=== PATIENT | female | born 1950 | race Caucasian/White ===

== ENCOUNTER → 2017-12-16 15:55 | Outpatient (CLI) | payer MEDICARE, MEDICAID, SELFPAY ==
[2017-12-16 16:06] LABS: Microscopic, Urine URINE MICROSCOPIC (MICROSCOPIC)
[2017-12-16 16:33] LABS: Basophils # 0.1 K/mm3 (0-0.2); Basophils % 0.7 % (0.1-2.0); Eosinophils # 0.4 K/mm3 (0.0-0.4); Eosinophils % 4.9 % (0.1-12.0); Hematocrit 44.8 % (37.0-47.0); Hemoglobin 14.2 g/dL (12.2-16.2); Lymphocytes # 1.7 K/mm3 (0.7-4.5); Lymphocytes % 23.2 K/mm3 (10-50); Mean Corpuscular HGB Conc 31.7 g/dL (31.8-35.4); Mean Corpuscular Hemoglobin 28.1 pg (27.0-31.2); Mean Corpuscular Volume 88.6 fl (81-99); Mean Platelet Volume 7.4 fl (7.4-10.4); Monocytes # 0.4 K/mm3 (0.1-1.0); Monocytes % 5.3 % (1.7-9.3); Neutrophils # 4.8 K/mm3 (1.8-7.8); Neutrophils % 65.9 % (37.0-80.0); Platelet Count 336 K/mm3 (142-424); Red Blood Count 5.06 M/mm3 (4.20-5.40); White Blood Count 7.3 K/mm3 (4.8-10.8)
[2017-12-16 16:36] LABS: Appearance,Urine CLEAR (Clear); Bilirubin,Urine Negative (Negative); Blood, Urine 1+ (Negative); Color,Urine YELLOW (Yellow); Glucose,Urine (UA) 3+ (Negative); Ketones,Urine Negative (Negative); Leukocyte Esterase,Urine Negative (Negative); Nitrate,Urine Negative (Negative); Protein,Urine 2+ (Negative); Specific Gravity, Urine 1.015 (1.005-1.030); Urobilinogen,Urine 0.2 EU/dl (0.2)
[2017-12-16 17:05] LABS: Bacteria,Urine Trace /lpf; RBC,Urine Occasional #/hpf (0-3)
[2017-12-16 18:40] LABS: Creatinine,Urine Random 26 mg/dL (20-320); Total Protein,Urine Random 199.5 mg/dL (0.0-11.9)
[2017-12-16 18:49] LABS: Albumin Level 3.2 gm/dL (3.4-5.0); Anion Gap 17.1 mEq/L (5-15); Blood Urea Nitrogen 25 mg/dL (7-18); Calcium 8.4 mg/dL (8.5-10.1); Carbon Dioxide 22 mmol/L (21.0-32.0); Chloride 102 mmol/L (98-107); Estimated Glomerular Filt Rate 25 ml/min (>60); GFR (African American) 30 ML/MIN (>60); Glucose 388 mg/dL (74-106); Phosphorous 2.4 mg/dL (2.4-4.9); Potassium 4.1 mmoL/L (3.5-5.1); Sodium 137 mmol/L (136-145)
[2017-12-18 18:29] LABS: Parathyroid Hormone Intact 193 pg/mL (15-65); Vitamin D 25 Hydroxy 10.8 ng/mL (30.0-100.0)
[2017-12-18 18:30] LABS: Calcium, Ionized 4.9 mg/dL (4.5-5.6)
== END ==
PROVIDERS: PCP Nurse Practitioner Family; Visit Provider Internal Medicine Nephrology
DX: N18.3 Chronic kidney disease, stage 3 (moderate) (principal)
CPT/HCPCS: 36415; 80069; 81001; 82330; 82570; 82652; 83970; 84155; 85025

== ENCOUNTER → 2017-12-20 14:32 | Outpatient (POV) | payer MEDICARE, MEDICAID, SELFPAY | PROVIDERS: PCP Nurse Practitioner Family; Visit Provider Internal Medicine Nephrology | DX: Z00.00 Encounter for general adult medical examination without abnormal findings (principal) ==

== ENCOUNTER 2017-12-20 16:15 | Emergency (ER) | payer MEDICARE, MEDICAID, SELFPAY ==
[2017-12-20 16:16] VITALS: BP 200/110; PULSE 84; RESP 14; TEMP 36.7; O2SAT 97; BMI 43.7
--- NOTE | 2017-12-20 17:54 | HMH.EDGENADL ---
ED Disposition Clinical Impression: Hypertensive emergency Disposition: Home, Self-Care Condition on Discharge: Good Instructions: High Blood Pressure Referrals: Miley Henriquez APRN [Primary Care Provider] - - Critical Care Critical Care Time: No Attestation: On 12/20/17, the high probability of a clinically significant, sudden or life threatening deterioration of the following system(s) required my full and direct attention, intervention and personal management. The time I documented below is in addition to time spent performing reported procedures but includes the following listed in this critical care notation. Medical Decision Making - Medical Records Medical records reviewed: Yes: I reviewed the patient's medical records. Vital Signs: 12/20/17 16:16 12/20/17 18:46 Temperature 98.1 F 98.6 F Temperature Source Oral Oral Pulse Rate [Right Brachial] 84 102 H Respiratory Rate 14 14 Blood Pressure [Left Arm] 200/110 210/89 Blood Pressure Mean [Left Arm] 140 129 Blood Pressure Source [Left Arm] Manual Cuff/ Auscultation Automatic Cuff Blood Pressure Position [Left Arm] Sitting Sitting 02 Sat by Pulse Oximetry 97 98 Oxygen Delivery Method Room Air Room Air Orders (Tests/Meds): ED MEDICATIONS Discontinued Medications Generic Name Dose Route Start Last Admin Trade Name Freq PRN Reason Stop Dose Admin Clonidine HCl 0.1 mg 12/20/17 17:57 12/20/17 18:06 Clonidine 0.1mg Tablet PO 12/20/17 17:58 0.1 mg ONCE ONE Administration - Akash Inquiry Pt receiving controlled substance: No General Adult HPI - General Chief complaint: Headache Stated complaint: high blood pressure 264/124 sugar 305 Time Seen by Provider: 12/20/17 17:54 Mode of Arrival: Ambulatory Source of Information: Patient, Relative, Medical Record Limitations: No Limitations Description of Symptoms (Recalled from ER Triage Doc. by RN): Pt advises she was seeing her lime sludge mixer today and her b/p was elevated in the office. Pt presents to ED c/o headache, dizzy and feeling like its high - History of Present Illness HPI narrative: wf sent from renal clinic with elevated bp and has elevated glu Onset (ago): hour(s) Severity: moderate Associated symptoms: headaches. negative: confusion, fever/chills, nausea/vomiting, seizure, syncope - Related Data Allergies Allergy/AdvReac Type Severity Reaction Status Date / Time No Known Allergies Allergy Verified 12/20/17 16:38 [facility] History I have reviewed the patient's past medical history: Yes Medical History: Reports:: Diabetes Mellitus Type 2 Denies:: Cancer, Diabetes Mellitus Type 1, MRSA Amputation: No Fractures: No - *Social History Alcohol Intake: never - Psychiatric History Expresses thoughts of harming self/others: None Suicide Plan Description: No Plan ROS Obtained: Yes All systems reviewed & no additional complaints - Constitutional Constitutional: Denies fever(s) - Eyes Eyes: Denies change in vision - ENT Ears, Nose, Mouth, and Throat: Denies sore throat - Cardiovascular Cardiovascular: Denies chest pain at rest - Respiratory Respiratory: No chest congestion - Gastrointestinal Gastrointestingal: Denies: abdominal pain - Musculoskeletal Musculoskeletal: Denies joint pain, Denies joint swelling - Integumentary/Breasts Skin/Breast: Denies rash - Neurologic Neurologic: Reports as per HPI, Reports dizziness, Reports headache(s), Denies seizure-like activity Physical Exam - General General appearance: alert, in no apparent distress - Head Head exam: normocephalic - Eye Eye exam: Present: PERRL, EOMI - ENT ENT exam: Present: mucous membranes dry - Neck Neck exam: Present: trachea midline - Respiratory Respiratory exam: Absent: respiratory distress - Cardiovascular Cardiovascular exam: Present: regular rate, systolic murmur - Abdominal Exam Abdominal exam: Present: soft - Extremities Exam Extremitie
--- NOTE | 2017-12-20 17:57 | ED_ITS ---
ED Disposition Clinical Impression: Hypertensive emergency Disposition: Home, Self-Care Condition on Discharge: Good Instructions: High Blood Pressure Referrals: Miley Henriquez APRN [Primary Care Provider] - - Critical Care Critical Care Time: No Attestation: On 12/20/17, the high probability of a clinically significant, sudden or life threatening deterioration of the following system(s) required my full and direct attention, intervention and personal management. The time I documented below is in addition to time spent performing reported procedures but includes the following listed in this critical care notation. Medical Decision Making - Medical Records Medical records reviewed: Yes: I reviewed the patient's medical records. Vital Signs: 12/20/17 16:16 12/20/17 18:46 Temperature 98.1 F 98.6 F Temperature Source Oral Oral Pulse Rate [Right Brachial] 84 102 H Respiratory Rate 14 14 Blood Pressure [Left Arm] 200/110 210/89 Blood Pressure Mean [Left Arm] 140 129 Blood Pressure Source [Left Arm] Manual Cuff/ Auscultation Automatic Cuff Blood Pressure Position [Left Arm] Sitting Sitting 02 Sat by Pulse Oximetry 97 98 Oxygen Delivery Method Room Air Room Air Orders (Tests/Meds): ED MEDICATIONS Discontinued Medications Generic Name Dose Route Start Last Admin Trade Name Freq PRN Reason Stop Dose Admin Clonidine HCl 0.1 mg 12/20/17 17:57 12/20/17 18:06 Clonidine 0.1mg Tablet PO 12/20/17 17:58 0.1 mg ONCE ONE Administration - Akash Inquiry Pt receiving controlled substance: No General Adult HPI - General Chief complaint: Headache Stated complaint: high blood pressure 264/124 sugar 305 Time Seen by Provider: 12/20/17 17:54 Mode of Arrival: Ambulatory Source of Information: Patient, Relative, Medical Record Limitations: No Limitations Description of Symptoms (Recalled from ER Triage Doc. by RN): Pt advises she was seeing her investment broker today and her b/p was elevated in the office. Pt presents to ED c/o headache, dizzy and feeling like its high - History of Present Illness HPI narrative: wf sent from renal clinic with elevated bp and has elevated glu Onset (ago): hour(s) Severity: moderate Associated symptoms: headaches. negative: confusion, fever/chills, nausea/ vomiting, seizure, syncope - Related Data Allergies Allergy/AdvReac Type Severity Reaction Status Date / Time No Known Allergies Allergy Verified 12/20/17 16:38 [facility] History I have reviewed the patient's past medical history: Yes Medical History: Reports:: Diabetes Mellitus Type 2 Denies:: Cancer, Diabetes Mellitus Type 1, MRSA Amputation: No Fractures: No - *Social History Alcohol Intake: never - Psychiatric History Expresses thoughts of harming self/others: None Suicide Plan Description: No Plan ROS Obtained: Yes All systems reviewed & no additional complaints - Constitutional Constitutional: Denies fever(s) - Eyes Eyes: Denies change in vision - ENT Ears, Nose, Mouth, and Throat: Denies sore throat - Cardiovascular Cardiovascular: Denies chest pain at rest - Respiratory Respiratory: No chest congestion - Gastrointestinal Gastrointestingal: Denies: abdominal pain - Musculoskeletal Musculoskeletal: Denies joint
[2017-12-20 18:46] VITALS: BP 210/89; PULSE 102; RESP 14; TEMP 37; O2SAT 98
[2017-12-20 19:39] VITALS: BP 167/78; PULSE 73; RESP 14; TEMP 36.9; O2SAT 97
== END 2017-12-20 19:42 | disposition home or self-care (01) ==
PROVIDERS: Emergency Provider Emergency Medicine; PCP Nurse Practitioner Family
DX: I16.1 Hypertensive emergency (principal); R42 Dizziness and giddiness; R51 Headache
CPT/HCPCS: 99283

== ENCOUNTER → 2017-12-28 09:30 | Outpatient (CLI) | payer MEDICARE, MEDICAID, SELFPAY ==
--- NOTE | 2017-12-28 09:36 | CI_ITS ---
Cerebrovascular Exam IMPRESSIONS 1. The bilateral vertebral arteries are patent with normal antegrade flow. 2. Study suggests less than 20% stenosis involving the right internal carotid artery. 3. Study suggests 20-49%(lower end of scale)stenosis involving the left internal carotid artery. History: Ataxia. Risk factors: Hypertension. Diabetes mellitus. Carotid duplex study. Complete study and Doppler flow study including spectral analysis, color and wilcox scale imaging. Height: Height: 147.3cm. Height: 58in. Weight: Weight: 94.8kg. Weight: 208.6lb. Body mass index: BMI: 43.7kg/m^2. Body surface area: BSA: 2.03m^2. Location: Vascular laboratory. Patient status: Outpatient. Tables: Arterial flow: + +--------+--------+ Location V sys V ed + +--------+--------+ Right CCA - proximal 71.5cm/s 8.6cm/s + +--------+--------+ Right CCA - distal 65.2cm/s 14.1cm/s + +--------+--------+ Right ECA 104cm/s -------- + +--------+--------+ Right ICA - proximal 65.2cm/s 16.5cm/s + +--------+--------+ Right ICA - mid 88cm/s 25.1cm/s + +--------+--------+ Right ICA - distal 88cm/s 22cm/s + +--------+--------+ Right vertebral 73.1cm/s -------- + +--------+--------+ Left CCA - proximal 74.6cm/s 15.7cm/s + +--------+--------+ Left CCA - distal 78.6cm/s 15.7cm/s + +--------+--------+ Left ECA 99cm/s -------- + +--------+--------+ Left ICA - proximal 101cm/s 16.5cm/s + +--------+--------+ Left ICA - mid 102cm/s 17.3cm/s + +--------+--------+ Left ICA - distal 91.1cm/s 22.8cm/s + +--------+--------+ Left vertebral 30.8cm/s -------- + +--------+--------+ Velocity ratios: + + + + + + Right, V sys Right, V ed Left, V sys Left, V ed + + + + + + Max ICA/dist CCA 1.35 1.78 1.3 1.45 + + + + + + (Report amended ) Electronically signed by: Will Jones [id number]
== END ==
PROVIDERS: PCP Internal Medicine Adolescent Medicine; Visit Provider Nurse Practitioner Family
DX: R27.0 Ataxia, unspecified (principal); I10 Essential (primary) hypertension; E11.319 Type 2 diabetes mellitus with unspecified diabetic retinopathy without macular edema
CPT/HCPCS: 93880

== ENCOUNTER → 2018-03-21 14:00 | Outpatient (CLI) | payer MEDICARE, MEDICAID, SELFPAY ==
[2018-03-21 15:10] LABS: Creatinine,Urine Random 75 mg/dL (20-320)
[2018-03-21 15:19] LABS: Total Protein,Urine Random 305.4 mg/dL (0.0-11.9)
[2018-03-21 17:04] LABS: Albumin Level 3.5 gm/dL (3.4-5.0); Anion Gap 14.4 mEq/L (5-15); Blood Urea Nitrogen 22 mg/dL (7-18); Calcium 9.5 mg/dL (8.5-10.1); Carbon Dioxide 29 mmol/L (21.0-32.0); Chloride 105 mmol/L (98-107); Creatinine,Serum 1.89 mg/dL (0.55-1.02); Estimated Glomerular Filt Rate 27 ml/min (>60); GFR (African American) 32 ML/MIN (>60); Glucose 193 mg/dL (74-106); Potassium 4.4 mmoL/L (3.5-5.1); Sodium 144 mmol/L (136-145)
[2018-03-21 17:09] LABS: Free T4 (Free Thyroxine) 1.27 ng/dl (0.76-1.46)
[2018-03-23 06:18] LABS: Vitamin D 25 Hydroxy 55.1 ng/mL (30.0-100.0)
== END ==
PROVIDERS: Otolaryngology; Visit Provider Internal Medicine Nephrology
DX: R13.10 Dysphagia, unspecified (principal)
CPT/HCPCS: 36415; 80069; 82570; 82652; 84155; 84439; 84443

== ENCOUNTER → 2018-03-28 13:19 | Outpatient (POV) | payer MEDICARE, MEDICAID, SELFPAY | PROVIDERS: PCP Internal Medicine Adolescent Medicine; Visit Provider Internal Medicine Nephrology | DX: Z00.00 Encounter for general adult medical examination without abnormal findings (principal) ==

== ENCOUNTER → 2018-03-29 09:43 | Outpatient (CLI) | payer MEDICARE, MEDICAID, SELFPAY ==
--- NOTE | 2018-03-29 09:45 | FL_ITS ---
EXAM: Barium swallow/esophagram. INDICATION: ITS.REASON: diff swallowing ORDERING PHYSICIAN: Ervin Hernandez MD PATIENT AGE: 67 years COMPARISON: 03/17/2017 TECHNIQUE: In the upright position the patient was observed to swallow barium in both the AP and lateral view. The cervical esophagus was examined under fluoroscopy with images obtained. The patient was then placed prone in the right anterior oblique position and was observed to swallow barium with Valsalva technique . FLUOROSCOPY TIME: 59 seconds FINDINGS: The esophagus is midline. No mass or mucosal anomalies are evident. No evidence of hiatal hernia. No obstructing lesions apparent. IMPRESSION: Negative barium swallow
--- NOTE | 2018-03-29 09:45 | US_ITS ---
US thyroid HISTORY: Follow-up thyroid cancer/surgery ITS.REASON: hx thyroid surgery' ORDERING PHYSICIAN: Ervin Hernandez MD PATIENT AGE: 67 years COMPARISON: 02/24/2017 FINDINGS: There has been a prior left thyroidectomy. The right lobe is 4.3 x 1.9 x 2.1 cm. There is an 8 x 6 mm slightly hypoechoic nodule in the mid polar region. No other nodules are evident. Previously there was a 9 x 5 mm lobular nodule which is not apparent on today's exam. Nodules were present in the isthmus as well which are no longer apparent. IMPRESSION: Prior left thyroidectomy. Prior removal of the isthmus. The right lobe contains a small nodule which is low level of suspicion for malignancy
== END ==
PROVIDERS: PCP Internal Medicine Adolescent Medicine; Visit Provider Otolaryngology
DX: R13.10 Dysphagia, unspecified (principal); E03.9 Hypothyroidism, unspecified
CPT/HCPCS: 74220; 76536

== ENCOUNTER → 2018-04-11 10:09 | Outpatient (CLI) | payer MEDICARE, MEDICAID, SELFPAY ==
[2018-04-11 11:06] LABS: Hemoglobin A1C 9.1 % (0.0-7.0)
[2018-04-11 11:44] LABS: Alanine Aminotransferase 20 U/L (12-78); Albumin Level 3.5 gm/dL (3.4-5.0); Albumin/Globulin Ratio 1.1 (1.1-1.8); Alkaline Phosphatase 96 U/L (46-116); Anion Gap 13.8 mEq/L (5-15); Aspartate Amino Transferase 14 U/L (15-37); Bilirubin,Total 0.4 mg/dL (0.2-1.0); Blood Urea Nitrogen 31 mg/dL (7-18); Calcium 9.4 mg/dL (8.5-10.1); Carbon Dioxide 26 mmol/L (21.0-32.0); Chloride 103 mmol/L (98-107); Chol/HDL Ratio 3.5 (1-3.5); Cholesterol 219 mg/dL (140-200); Creatinine,Serum 2.19 mg/dL (0.55-1.02); Estimated Glomerular Filt Rate 23 ml/min (>60); GFR (African American) 27 ML/MIN (>60); Globulin 3.1 gm/dl (1.3-3.2); Glucose 336 mg/dL (74-106); HDL Cholesterol 62 mg/dL (29-89); LDL Cholesterol 119 mg/dL (0-130); Potassium 4.8 mmoL/L (3.5-5.1); Sodium 138 mmol/L (136-145); Total Protein,Serum 6.6 gm/dL (6.4-8.2); Triglycerides 189 mg/dL (30-200); VLDL Cholesterol 38 mg/dL (0-40)
== END ==
PROVIDERS: Visit Provider Nurse Practitioner Family
DX: E11.319 Type 2 diabetes mellitus with unspecified diabetic retinopathy without macular edema (principal)
CPT/HCPCS: 36415; 80053; 80061; 83036

== ENCOUNTER → 2018-05-05 09:43 | Outpatient (CLI) | payer MEDICARE, MEDICAID, SELFPAY ==
--- NOTE | 2018-05-05 09:48 | MM_ITS ---
MM Dig screening mamm BI w/CAD CAD Screening ORDERING PHYSICIAN : Darnell Narayan MD PATIENT AGE: 67 years GENDER: Female HISTORY. Previous excisional biopsy of the left breast and o'clock periareolar region.. . Family history. Mother with breast cancer age 45. Premenopausal. Also sister with breast cancer age 57. Paternal grandmother COMPARISON April 2015, May 2016, December 2011..: TECHNIQUE: Standard CC and MLO images were obtained. R2 CAD reviewed. FINDINGS: A low-density breast bilaterally with no dominant mass nor suspicious calcifications. RIGHT BREAST: LEFT BREAST:A stable small area of calcifications at the central left breast. No dominant mass nor nor new densities of significant concern in either breast. No suspicious calcifications. The generous size fatty filled axillary lymph nodes again observed and more completely imaged on today's study. Warrants clinical follow up but appear to be generous size fat filled benign lymph nodes by mammography IMPRESSION: The breast appears stable with No significant interval change. Bilateral follow-up mammogram one year recommended Note comments in text BI-RADS Category: 2 Benign Finding(s) RECOMMENDED FOLLOW-UP: 1YR - 1 YEAR FOLLOW-UP (A letter has been sent to the patient regarding results of the study.)
--- NOTE | 2018-05-05 09:49 | XR_ITS ---
XR DEXA axial skeleton HISTORY: ITS.REASON: OSTEOPENIA ORDERING PHYSICIAN: Darnell Narayan MD PATIENT AGE: 67 years COMPARISON: 05/09/2015 FINDINGS: The BMD measured at the left femoral neck is 0.853 g/cm squared with a T score of -1.3. This is considered Osteopenic according to the World Health Organization criteria. Fracture risk is Moderate. Treatment is advised. L1 L4 density has a T score of 1.9 IMPRESSION: Osteopenia with moderate fracture risk. Recommend follow up exam in April 2020
== END ==
PROVIDERS: PCP Internal Medicine Adolescent Medicine; Visit Provider Internal Medicine Adolescent Medicine
DX: Z12.31 Encounter for screening mammogram for malignant neoplasm of breast (principal); M85.89 Other specified disorders of bone density and structure, multiple sites
CPT/HCPCS: 77067; 77080

== ENCOUNTER → 2018-07-04 10:22 | Outpatient (CLI) | payer MEDICARE, MEDICAID, SELFPAY ==
[2018-07-04 10:45] LABS: Basophils # 0.1 K/mm3 (0-0.2); Basophils % 0.9 % (0.1-2.0); Eosinophils # 0.3 K/mm3 (0.0-0.4); Eosinophils % 5.5 % (0.1-12.0); Hematocrit 43.5 % (37.0-47.0); Hemoglobin 13.6 g/dL (12.2-16.2); Lymphocytes # 1.3 K/mm3 (0.7-4.5); Lymphocytes % 22.9 K/mm3 (10-50); Mean Corpuscular HGB Conc 31.3 g/dL (31.8-35.4); Mean Corpuscular Hemoglobin 27.4 pg (27.0-31.2); Mean Corpuscular Volume 87.7 fl (81-99); Mean Platelet Volume 6.7 fl (7.4-10.4); Monocytes # 0.4 K/mm3 (0.1-1.0); Monocytes % 7.1 % (1.7-9.3); Neutrophils # 3.6 K/mm3 (1.8-7.8); Neutrophils % 63.7 % (37.0-80.0); Platelet Count 317 K/mm3 (142-424); Red Blood Count 4.96 M/mm3 (4.20-5.40); Red Cell Distribution Width 13.9 % (11.5-17.5); White Blood Count 5.6 K/mm3 (4.8-10.8)
[2018-07-04 11:52] LABS: Albumin Level 3.5 gm/dL (3.4-5.0); Anion Gap 12.8 mEq/L (5-15); Blood Urea Nitrogen 23 mg/dL (7-18); Calcium 9.2 mg/dL (8.5-10.1); Carbon Dioxide 31 mmol/L (21.0-32.0); Chloride 103 mmol/L (98-107); Creatinine,Serum 2.12 mg/dL (0.55-1.02); Estimated Glomerular Filt Rate 23 ml/min (>60); GFR (African American) 28 ML/MIN (>60); Glucose 326 mg/dL (74-106); Phosphorous 3.2 mg/dL (2.4-4.9); Potassium 4.8 mmoL/L (3.5-5.1); Sodium 142 mmol/L (136-145)
[2018-07-05 13:12] LABS: Calcium, Ionized 5.1 mg/dL (4.5-5.6)
[2018-07-05 16:06] LABS: Parathyroid Hormone Intact 94 pg/mL (15-65)
== END ==
PROVIDERS: Visit Provider Internal Medicine Nephrology
DX: N18.4 Chronic kidney disease, stage 4 (severe) (principal)
CPT/HCPCS: 36415; 80069; 82330; 83970; 85025

== ENCOUNTER → 2018-07-11 15:24 | Outpatient (POV) | payer MEDICARE, MEDICAID, SELFPAY | PROVIDERS: PCP Internal Medicine Adolescent Medicine; Visit Provider Internal Medicine Nephrology | DX: Z00.00 Encounter for general adult medical examination without abnormal findings (principal) ==

== ENCOUNTER → 2018-08-02 15:29 | Outpatient (CLI) | payer MEDICARE, MEDICAID, SELFPAY ==
--- NOTE | 2018-08-02 15:34 | XR_ITS ---
XR chest 2V HISTORY: ITS.REASON: SOB ORDERING PHYSICIAN: Talat Machado MD PATIENT AGE: 68 years COMPARISON: None FINDINGS: Mild cardiomegaly without failure. Lungs are clear bilaterally. There are mild degenerative changes in the midthoracic spine.. The lungs are clear without infiltrates, suspicious nodules, or pleural effusions. No acute bony abnormalities. IMPRESSION: Cardiomegaly otherwise negative
== END ==
PROVIDERS: PCP Nurse Practitioner Family; Visit Provider Internal Medicine Pulmonary Disease
DX: R06.02 Shortness of breath (principal)
CPT/HCPCS: 71046

== ENCOUNTER → 2018-09-22 09:16 | Outpatient (CLI) | payer MEDICARE, MEDICAID, SELFPAY ==
[2018-09-22 09:29] LABS: Basophils # 0.1 K/mm3 (0-0.2); Basophils % 0.9 % (0.1-2.0); Eosinophils # 0.3 K/mm3 (0.0-0.4); Eosinophils % 6.2 % (0.1-12.0); Hematocrit 38.6 % (37.0-47.0); Hemoglobin 12.1 g/dL (12.2-16.2); Lymphocytes # 1.4 K/mm3 (0.7-4.5); Lymphocytes % 24.9 K/mm3 (10-50); Mean Corpuscular HGB Conc 31.4 g/dL (31.8-35.4); Mean Corpuscular Hemoglobin 27.9 pg (27.0-31.2); Mean Corpuscular Volume 88.8 fl (81-99); Mean Platelet Volume 7.8 fl (7.4-10.4); Monocytes # 0.4 K/mm3 (0.1-1.0); Monocytes % 7.3 % (1.7-9.3); Neutrophils # 3.3 K/mm3 (1.8-7.8); Neutrophils % 60.6 % (37.0-80.0); Platelet Count 302 K/mm3 (142-424); Red Blood Count 4.35 M/mm3 (4.20-5.40); Red Cell Distribution Width 14.2 % (11.5-17.5); White Blood Count 5.4 K/mm3 (4.8-10.8)
[2018-09-22 13:12] LABS: Albumin Level 3.5 gm/dL (3.4-5.0); Anion Gap 16.4 mEq/L (5-15); Blood Urea Nitrogen 38 mg/dL (7-18); Calcium 9.4 mg/dL (8.5-10.1); Carbon Dioxide 26 mmol/L (21.0-32.0); Chloride 97 mmol/L (98-107); Creatinine,Serum 2.43 mg/dL (0.55-1.02); Estimated Glomerular Filt Rate 20 ml/min (>60); GFR (African American) 24 ML/MIN (>60); Phosphorous 4.1 mg/dL (2.4-4.9); Potassium 4.4 mmoL/L (3.5-5.1); Sodium 135 mmol/L (136-145)
[2018-09-22 13:39] LABS: Glucose 483 mg/dL (74-106)
== END ==
PROVIDERS: Visit Provider Internal Medicine Nephrology
DX: N18.4 Chronic kidney disease, stage 4 (severe) (principal)
CPT/HCPCS: 36415; 80069; 85025

== ENCOUNTER → 2018-09-26 14:08 | Outpatient (POV) | payer MEDICARE, MEDICAID, SELFPAY | PROVIDERS: Visit Provider Internal Medicine Nephrology | DX: Z00.00 Encounter for general adult medical examination without abnormal findings (principal) ==

== ENCOUNTER → 2018-10-06 09:09 | Outpatient (CLI) | payer MEDICARE, MEDICAID, SELFPAY ==
[2018-10-06 10:46] LABS: Alanine Aminotransferase 28 U/L (12-78); Albumin Level 3.4 gm/dL (3.4-5.0); Alkaline Phosphatase 138 U/L (46-116); Anion Gap 15.7 mEq/L (5-15); Aspartate Amino Transferase 10 U/L (15-37); Bilirubin,Total 0.3 mg/dL (0.2-1.0); Blood Urea Nitrogen 56 mg/dL (7-18); Calcium 10.1 mg/dL (8.5-10.1); Carbon Dioxide 29 mmol/L (21.0-32.0); Chloride 94 mmol/L (98-107); Chol/HDL Ratio 3.2 (1-3.5); Cholesterol 184 mg/dL (140-200); Creatinine,Serum 2.67 mg/dL (0.55-1.02); Estimated Glomerular Filt Rate 18 ml/min (>60); GFR (African American) 22 ML/MIN (>60); Globulin 3.3 gm/dl (1.3-3.2); HDL Cholesterol 57 mg/dL (29-89); LDL Cholesterol 71 mg/dL (0-130); Potassium 4.7 mmoL/L (3.5-5.1); Sodium 134 mmol/L (136-145); Thyroid Stimulating Hormone 1.04 uIU/ml (0.358-3.740); Total Protein,Serum 6.7 gm/dL (6.4-8.2); Triglycerides 278 mg/dL (30-200); VLDL Cholesterol 56 mg/dL (0-40)
[2018-10-06 10:50] LABS: Glucose 463 mg/dL (74-106)
[2018-10-06 19:29] LABS: Hemoglobin A1C 11.7 % (0.0-7.0)
== END ==
PROVIDERS: Visit Provider Nurse Practitioner Family
DX: E11.319 Type 2 diabetes mellitus with unspecified diabetic retinopathy without macular edema (principal); E78.5 Hyperlipidemia, unspecified; E03.9 Hypothyroidism, unspecified; I10 Essential (primary) hypertension
CPT/HCPCS: 36415; 80053; 80061; 83036; 84443

== ENCOUNTER → 2018-12-19 12:54 | Outpatient (CLI) | payer MEDICARE, MEDICAID, SELFPAY ==
[2018-12-19 15:01] LABS: Albumin Level 3.4 gm/dL (3.4-5.0); Anion Gap 14.1 mEq/L (5-15); Blood Urea Nitrogen 46 mg/dL (7-18); Calcium 9.6 mg/dL (8.5-10.1); Carbon Dioxide 28 mmol/L (21.0-32.0); Chloride 96 mmol/L (98-107); Creatinine,Serum 2.52 mg/dL (0.55-1.02); Estimated Glomerular Filt Rate 19 ml/min (>60); GFR (African American) 23 ML/MIN (>60); Phosphorous 3.7 mg/dL (2.4-4.9); Potassium 4.1 mmoL/L (3.5-5.1); Sodium 134 mmol/L (136-145)
[2018-12-19 15:10] LABS: Glucose 484 mg/dL (74-106)
== END ==
PROVIDERS: Visit Provider Internal Medicine Nephrology
DX: N18.4 Chronic kidney disease, stage 4 (severe) (principal)
CPT/HCPCS: 36415; 80069

== ENCOUNTER → 2018-12-26 14:38 | Outpatient (POV) | payer MEDICARE, MEDICAID, SELFPAY | PROVIDERS: Visit Provider Internal Medicine Nephrology | DX: Z00.00 Encounter for general adult medical examination without abnormal findings (principal) ==

== ENCOUNTER → 2019-01-25 10:46 | Outpatient (CLI) | payer MEDICARE, MEDICAID, SELFPAY ==
--- NOTE | 2019-01-25 10:54 | US_ITS ---
US Arterial Ankle Brachial Ind History: ITS.REASON: skin changes, hypertension, diabetes, claudication, rest pain ORDERING PHYSICIAN: Tanna Montgomery DPM PATIENT AGE: 68 years TECHNIQUE: Segmental pressures obtained of both right and left leg. These are compared to brachial blood pressure to yield index at each level sampled including summary EDWARD. The data sheets from the procedure are available in PACS FINDINGS Rest study only performed today No prior studies available for comparison. Blood pressures reported are in millimeters mercury. RIGHT LEG EDWARD = 0.4. RIGHT LEG TBI=0.2 Brachial BP: 203 Thigh BP: 114 Calf BP: >254 Ankle PT: 88 Ankle DP : 91 Digit =32 LEFT LEG EDWARD = 0.6 LEFT LEG TBI= 0.3 Brachial BPD: 196 Thigh BP: 124 Calf BP: 131 Ankle PT:124 Ankle DP: 105 Digit = 67 Pulses and waveforms: There are diminished pulses bilaterally. IMPRESSION: 1. Right EDWARD of 0.4 consistent with severe arterial disease. 2. Left EDWARD of 0.6 consistent with moderate arterial disease 3. There is decreased pressure in the thighs bilaterally suggesting stenosis of either the distal aorta, iliac arteries, common femoral arteries or superficial femoral arteries. CT angiogram may confirm
== END ==
PROVIDERS: PCP Nurse Practitioner Family; Visit Provider Podiatrist
DX: R09.89 Other specified symptoms and signs involving the circulatory and respiratory systems (principal)
CPT/HCPCS: 93922

== ENCOUNTER → 2019-01-30 11:25 | Outpatient (CLI) | payer MEDICARE, MEDICAID, SELFPAY ==
[2019-01-30 12:01] LABS: Basophils # 0.1 K/mm3 (0-0.2); Eosinophils # 0.4 K/mm3 (0.0-0.4); Eosinophils % 4.9 % (0.1-12.0); Hematocrit 41.8 % (37.0-47.0); Hemoglobin 13.3 g/dL (12.2-16.2); Lymphocytes # 1.7 K/mm3 (0.7-4.5); Lymphocytes % 22.3 % (10-50); Mean Corpuscular HGB Conc 31.8 g/dL (31.8-35.4); Mean Corpuscular Hemoglobin 28.7 pg (27.0-31.2); Mean Corpuscular Volume 90.3 fl (81-99); Monocytes # 0.5 K/mm3 (0.1-1.0); Monocytes % 5.8 % (1.7-9.3); Neutrophils # 5.1 K/mm3 (1.8-7.8); Platelet Count 325 K/mm3 (142-424); Red Blood Count 4.63 M/mm3 (4.20-5.40); Red Cell Distribution Width 13.7 % (11.5-17.5); White Blood Count 7.8 K/mm3 (4.8-10.8)
[2019-01-30 12:47] LABS: Alanine Aminotransferase 28 U/L (12-78); Albumin Level 3.6 gm/dL (3.4-5.0); Alkaline Phosphatase 102 U/L (46-116); Anion Gap 16.7 mEq/L (5-15); Aspartate Amino Transferase 18 U/L (15-37); Bilirubin,Total 0.3 mg/dL (0.2-1.0); Blood Urea Nitrogen 31 mg/dL (7-18); Calcium 10.2 mg/dL (8.5-10.1); Carbon Dioxide 28 mmol/L (21.0-32.0); Chloride 101 mmol/L (98-107); Chol/HDL Ratio 3.1 (1-3.5); Cholesterol 183 mg/dL (140-200); Creatinine,Serum 1.95 mg/dL (0.55-1.02); Estimated Glomerular Filt Rate 26 ml/min (>60); GFR (African American) 31 ML/MIN (>60); Globulin 3.5 gm/dl (1.3-3.2); Glucose 225 mg/dL (74-106); HDL Cholesterol 60 mg/dL (29-89); LDL Cholesterol 82 mg/dL (0-130); Potassium 3.7 mmoL/L (3.5-5.1); Sodium 142 mmol/L (136-145); Total Protein,Serum 7.1 gm/dL (6.4-8.2); Triglycerides 207 mg/dL (30-200); VLDL Cholesterol 41 mg/dL (0-40)
[2019-01-30 15:38] LABS: Hemoglobin A1C 11.4 % (0.0-7.0)
[2019-01-31 11:21] LABS: Creatinine, Urine 108.6 mg/dL (Not Estab.)
[2019-01-31 16:12] LABS: Microalbumin, Urine 1047.7 ug/mL (Not Estab.)
[2019-02-01 07:32] LABS: Vitamin D 25 Hydroxy 24.6 ng/mL (30.0-100.0)
== END ==
PROVIDERS: Visit Provider Nurse Practitioner Family
DX: E11.8 Type 2 diabetes mellitus with unspecified complications (principal); E55.9 Vitamin D deficiency, unspecified; I10 Essential (primary) hypertension; E03.9 Hypothyroidism, unspecified; N18.4 Chronic kidney disease, stage 4 (severe)
CPT/HCPCS: 36415; 80053; 80061; 82043; 82570; 82652; 83036; 84443; 85025

== ENCOUNTER → 2019-02-02 14:06 | Outpatient (CLI) | payer MEDICARE, MEDICAID, SELFPAY | PROVIDERS: PCP Internal Medicine Adolescent Medicine; Visit Provider Podiatrist | DX: Z71.3 Dietary counseling and surveillance (principal); E11.9 Type 2 diabetes mellitus without complications | CPT/HCPCS: 97802 ==

== ENCOUNTER → 2019-02-15 06:33 | Outpatient (CLI) | payer MEDICARE, MEDICAID, SELFPAY ==
--- NOTE | 2019-02-15 06:34 | CA_ITS ---
PROCEDURE: 2-D M-mode and color Doppler study INDICATIONS FOR THE TEST: Chest pain + COPD Heart Murmur Tobacco Smoking Palpitations+ Fatigue+ Syncope Edema+ Hypertension+Diabetes Mellitus+ Rheumatic Fever SOB PIPER+Obesity Hyperlipidemia+ Family History HD+ Additional History CP, [place] PATIENT INFORMATION HEIGHT: 59 WEIGHT:207 GENDER: Female B/P:186/87 2-D/M-MODE INTERPRETATION: 2-D MEASUREMENTS OBSERVED VALUES IN CMS Right Ventricular Dimension (RVDd) 2.1 Interventricular Septum (Thickness)(IVsd) 1.5 Left Ventricular Internal Dimensions(LVIDd) 4.5 Left Ventricular Posterior Wall (Thickness)(LVPWd) 1.0 Aortic Root 3.0 Aortic Cusp Separation 1.8 Left Atrial Dimensions (LAD) 3.8 2D 1. Left atrium is mildly enlarged, left ventricle is normal size, mild concentric left ventricular hypertrophy, visually estimated ejection fraction 55% with no regional wall motion abnormality. 2. The right atrium and right ventricle are normal size and contractility. 3. The aortic valve is minimally thickened and fibrosed. 4. The mitral and tricuspid valve leaflets are minimally thickened. 5. The pulmonic valve is poorly visualized. 6. No significant pericardial effusion noted. DOPPLER INTERROGATION: Doppler interrogation of the aortic, mitral and tricuspid valvular presence of mild mitral and tricuspid regurgitation, tricuspid regurgitation jet velocity is inadequate for calculation of the right ventricular systolic pressure, grade 1 diastolic dysfunction seen with tissue Doppler evidence of raised left atrial pressure. CONCLUSION: 1. Mildly enlarged left atrium, normal left ventricular size, mild concentric left ventricular hypertrophy, visually estimated ejection fraction 55% with no regional wall motion abnormality, grade 1 diastolic dysfunction seen with tissue Doppler evidence of raised left atrial pressure. 2. Mild mitral and tricuspid regurgitation 3. No significant pericardial effusion noted.
--- NOTE | 2019-02-15 06:49 | NM_ITS ---
CARDIOLITE SPECT MYOCARDIAL PERFUSION LEXISCAN, REST AND STRESS: History: Hypertension, diabetes, hyperlipidemia, family history, chest pain and shortness of breath Procedure: Patient received a 0.4 mg of intravenous Lexiscan, resting heart rate was 74 bpm resting blood pressure 196/99, with Lexiscan maximum heart rate achieved was 91 bpm which is less than 85% of the maximum predicted heart rate and a blood pressure was 164/64. With Lexiscan patient complained of shortness of breath and stomach discomfort. Electrocardiogram: Resting electrocardiogram showed sinus rhythm left atrial enlargement possible septal infarct age indeterminate nonspecific ST-T changes, with Lexiscan occasional premature ventricular complex seen less than 1.[address] segment depression noted from the baseline EKG. The EKG portion of the Lexiscan Myoview is nondiagnostic. Cardiac stress and resting SPECT images: Cardiac stress and resting SPECT images were obtained using technetium 99 Myoview 30.3 mCi at stress and 10.9 mCi at rest. Gated SPECT further analysis of segmental wall motion and calculation of the ejection fraction also done. Cardiac stress and the suspect images show a mild fixed defect in the anterior wall with normal contractility gated SPECT and normal perfusion of the apex is likely secondary to soft tissue attenuation, no reversible ischemia seen. Computer derived ejection fraction is over 65% with no regional wall motion abnormality, right ventricle is normal size and contractility. Conclusion: 1. The EKG portion of the Lexiscan Myoview is nondiagnostic. 2. No scintigraphic evidence of reversible ischemia seen. Computer derived ejection fraction is over 65% with no regional wall motion abnormality, right ventricle is normal size and contractility. 3. Normal Lexiscan Myoview study.
--- NOTE | 2019-02-15 07:09 | HMH.ITSHM ---
Current Home Medications as stated by this patient Jerri Thompson or in store representative. []VERAPAMIL TIMOLOL RASUVASTATIN RANITIDINE OLMESARTAN LEVOTHYROXINE ISOSORBIDE INSULIN HYDRALAZINE CHLORTHALIDONE CARVEDILOL ASA ACETYLCYSTEINE
== END ==
PROVIDERS: PCP Internal Medicine Adolescent Medicine; Visit Provider Internal Medicine Cardiovascular Disease
DX: R06.02 Shortness of breath (principal); R60.0 Localized edema; E11.9 Type 2 diabetes mellitus without complications; E78.5 Hyperlipidemia, unspecified; I10 Essential (primary) hypertension; I20.9 Angina pectoris, unspecified; I65.29 Occlusion and stenosis of unspecified carotid artery; I73.9 Peripheral vascular disease, unspecified; I77.1 Stricture of artery; Q25.3 Supravalvular aortic stenosis; Z82.49 Family history of ischemic heart disease and other diseases of the circulatory system; R07.9 Chest pain, unspecified; Z79.4 Long term (current) use of insulin
CPT/HCPCS: 78452; 93017; 93306; A9502; J2785

== ENCOUNTER → 2019-02-23 11:46 | Outpatient (CLI) | payer MEDICARE, MEDICAID, SELFPAY ==
--- NOTE | 2019-02-23 12:20 | CT_ITS ---
CT chest wo con HISTORY: : chest pain long-standing. Bilateral arm numbness. ORDERING PHYSICIAN: Cheo Montero MD PATIENT AGE: 68 years COMPARISON: PA and lateral chest August 02, 2018 Technique: No IV contrast utilized Helical Axial images obtained through the chest. Sagittal and coronal reformatted images are also generated and reviewed. All CT scans at the facility use one or more dose reduction, viz: automated exposure control, ma/kV adjustment per patient size (including targeted exams where dose is matched to indication, i.e. head), or iterative reconstruction technique. FINDINGS: LUNGS..A few scattered small areas density noted bilaterally. Most likely benign features but would benefit from follow-up. Right Lung Nodular density posterior aspect R UL superiorly on axial image 17. This measures nearly 7 mm at its base x 8 mm AP. There is some linear scarring associated best appreciated on the sagittal image 38. I tend to favor benign feature possibly related to granulomatous scarring. Immediately inferior this area at the superior right upper lobe is a small calcified granuloma measuring less than 2.5 mm size adnexa image 22 some minimal associated linear scarring here accounts for the minimal wispy parenchymal density on axial image 21 No pleural effusion or thickening. Subtle slight reticular patchy parenchymal density along seen on the posteriorly along posterior aspect of the right lower lobe, best seen on sagittal image 33. Most likely reflect some mild minor and/or pulmonary fibrotic changes here.. Possibly some minor atelectasis doubt minimal infiltrate. Left Lung: Similar but less evident appearance posterior aspect of left lower lobe. . Subtle patchy, wispy density anterior aspect lingula suspected reflect some mild postinflammatory changes. This extends for roughly 3 cm diameter. Most evident peripherally. Just medial in this region is a ovoid 4.7 mm nodule on axial image 44 overlying left heart border and just superior to the major fissure . No pleural lesions or effusion at either chest. HEART: Prominent Calcified coronary arteries particularly noted calcification LAD and left main. Calcification origin of the right coronary artery. Less pronounced calcification at circumflex. Mild cardiomegaly. Calcified along inferior aspect mitral annulus no pericardial effusion 232 MEDIASTINUM. No mediastinal adenopathy of significance. Calcified nodes subcarinal region reflects old adenomatous change no hilar adenopathy airways satisfactory. No hilar adenopathy or enlargement evident on this noncontrast study. .. The region of brachial plexus and supraclavicular areas unremarkable.. . BONY STRUCTURES: No acute bony abnormalities apparent degenerative disc changes mid T-spine and lower C-spine noted. No compression fractures or osseous lesions... Ribs unremarkable sternum intact. LYMPH NODES: No enlarged lymph nodes evident. Fatty benign-appearing nodes in the axillary region bilaterally UPPER ABDOMEN:. Radiopaque sludge or a small amount of gravel at the dependent gallbladder Other observations. Small volume left lobe thyroid possible reflecting previous surgery ====== IMPRESSION: 1. Lungs. No prominent nor currently suspicious finding. 2. Minor observations.. Warrants follow-up . A few scattered areas of peripheral densities & peripheral nodular densities More likely likely benign, but would suggest a follow-up CT chest in 4-6 months to confirm stability 3. . Mild cardiomegaly with coronary calcification 4. Radiopaque sludge or minimal gravel at dependent gallbladder. Incidentally noted
== END ==
PROVIDERS: PCP Nurse Practitioner Family; Visit Provider Internal Medicine Cardiovascular Disease
DX: E11.42 Type 2 diabetes mellitus with diabetic polyneuropathy (principal); E11.8 Type 2 diabetes mellitus with unspecified complications; E66.01 Morbid (severe) obesity due to excess calories; I65.29 Occlusion and stenosis of unspecified carotid artery; I73.9 Peripheral vascular disease, unspecified; L60.3 Nail dystrophy; L60.8 Other nail disorders; N18.9 Chronic kidney disease, unspecified; R09.89 Other specified symptoms and signs involving the circulatory and respiratory systems; R60.0 Localized edema; R68.89 Other general symptoms and signs
CPT/HCPCS: 71250

== ENCOUNTER → 2019-03-03 10:02 | Outpatient (CLI) | payer MEDICARE, MEDICAID, SELFPAY ==
[2019-03-03 10:25] LABS: Basophils # 0.1 K/mm3 (0-0.2); Basophils % 0.8 % (0.1-2.0); Eosinophils # 0.5 K/mm3 (0.0-0.4); Eosinophils % 6.9 % (0.1-12.0); Hematocrit 34.7 % (37.0-47.0); Hemoglobin 11.7 g/dL (12.2-16.2); Lymphocytes # 1.5 K/mm3 (0.7-4.5); Lymphocytes % 20.4 % (10-50); Mean Corpuscular HGB Conc 33.6 g/dL (31.8-35.4); Mean Corpuscular Hemoglobin 29.2 pg (27.0-31.2); Mean Corpuscular Volume 86.8 fl (81-99); Mean Platelet Volume 7.7 fl (7.4-10.4); Monocytes # 0.4 K/mm3 (0.1-1.0); Monocytes % 6.2 % (1.7-9.3); Neutrophils # 4.7 K/mm3 (1.8-7.8); Neutrophils % 65.6 % (37.0-80.0); Platelet Count 289 K/mm3 (142-424); Red Cell Distribution Width 13.7 % (11.5-17.5); White Blood Count 7.1 K/mm3 (4.8-10.8)
[2019-03-03 12:09] LABS: Blood Urea Nitrogen 46 mg/dL (7-18); Calcium 9.7 mg/dL (8.5-10.1); Carbon Dioxide 25 mmol/L (21.0-32.0); Chloride 103 mmol/L (98-107); Creatinine,Serum 2.22 mg/dL (0.55-1.02); Estimated Glomerular Filt Rate 22 ml/min (>60); GFR (African American) 27 ML/MIN (>60); Glucose 271 mg/dL (74-106); Sodium 140 mmol/L (136-145)
== END ==
PROVIDERS: Visit Provider Internal Medicine
DX: I15.0 Renovascular hypertension (principal); I70.1 Atherosclerosis of renal artery
CPT/HCPCS: 36415; 80048; 85025

== ENCOUNTER → 2019-03-31 10:47 | Outpatient (CLI) | payer MEDICARE, MEDICAID, SELFPAY ==
--- NOTE | 2019-03-31 10:49 | AS_ITS ---
Renal Arterial Duplex Indications: 405.91 Unspecified renovascular hypertension. IMPRESSIONS Normal bilateral renal artery evaluation. History: Abdominal pain. Risk factors: Recent surgery: Right renal artery stent placed 03/01/19. Complete renal arterial duplex. Duplex scan and Doppler flow study including spectral analysis, color and wilcox scale imaging. Height: Height: 154.9cm. Height: 61in. Weight: Weight: 93kg. Weight: 204.6lb. Body mass index: BMI: 38.7kg/m^2. Body surface area: BSA: 2.05m^2. Location: Vascular laboratory. Patient status: Outpatient. Tables: Arterial flow: + +--------+--------+ Location V sys V ed + +--------+--------+ Right renal - proximal 101cm/s 10.5cm/s + +--------+--------+ Right renal - mid 122cm/s 8.6cm/s + +--------+--------+ Right renal - distal 81.5cm/s 11.1cm/s + +--------+--------+ Left renal - proximal 115cm/s 23.2cm/s + +--------+--------+ Left renal - mid 68.1cm/s 10.7cm/s + +--------+--------+ Left renal - distal 46.7cm/s 4.7cm/s + +--------+--------+ Aorta-prox 139cm/s -------- + +--------+--------+ Renal anatomy: + +------+------+ Left Right + +------+------+ Long axis 10.5cm 10.2cm + +------+------+ Short axis 6.1cm 7.3cm + +------+------+ Cortical thickness 1.2cm 1.1cm + +------+------+ Velocity ratios: + +-----+ V sys + +-----+ Right renal/aortic 0.9 + +-----+ Left renal/aortic 0.8 + +-----+ (Report amended ) Electronically signed by: Will Jones [id number]
== END ==
PROVIDERS: PCP Nurse Practitioner Family; Visit Provider Internal Medicine Cardiovascular Disease
DX: I10 Essential (primary) hypertension; I25.10 Atherosclerotic heart disease of native coronary artery without angina pectoris; E11.9 Type 2 diabetes mellitus without complications; Z79.4 Long term (current) use of insulin; E78.5 Hyperlipidemia, unspecified; I65.29 Occlusion and stenosis of unspecified carotid artery; I70.1 Atherosclerosis of renal artery; I73.9 Peripheral vascular disease, unspecified; I77.1 Stricture of artery; Q25.3 Supravalvular aortic stenosis; R06.00 Dyspnea, unspecified; R60.9 Edema, unspecified; R94.31 Abnormal electrocardiogram [ECG] [EKG]; Z82.49 Family history of ischemic heart disease and other diseases of the circulatory system
CPT/HCPCS: 93976

== ENCOUNTER → 2019-04-07 09:09 | Outpatient (CLI) | payer MEDICARE, MEDICAID, SELFPAY ==
[2019-04-07 10:34] LABS: Anion Gap 16.1 mEq/L (5-15); Blood Urea Nitrogen 62 mg/dL (7-18); Calcium 10.1 mg/dL (8.5-10.1); Carbon Dioxide 27 mmol/L (21.0-32.0); Chloride 102 mmol/L (98-107); Creatinine,Serum 3.21 mg/dL (0.55-1.02); Estimated Glomerular Filt Rate 14 ml/min (>60); GFR (African American) 17 ML/MIN (>60); Glucose 97 mg/dL (74-106); Potassium 4.1 mmoL/L (3.5-5.1); Sodium 141 mmol/L (136-145)
== END ==
PROVIDERS: Visit Provider Internal Medicine Cardiovascular Disease
DX: N18.9 Chronic kidney disease, unspecified (principal)
CPT/HCPCS: 36415; 80048

== ENCOUNTER → 2019-05-12 10:30 | Outpatient (CLI) | payer MEDICARE, MEDICAID, SELFPAY ==
[2019-05-12 11:45] LABS: Anion Gap 15.8 mEq/L (5-15); Blood Urea Nitrogen 29 mg/dL (7-18); Calcium 9.4 mg/dL (8.5-10.1); Carbon Dioxide 28 mmol/L (21.0-32.0); Chloride 101 mmol/L (98-107); Creatinine,Serum 2.85 mg/dL (0.55-1.02); Estimated Glomerular Filt Rate 17 ml/min (>60); GFR (African American) 20 ML/MIN (>60); Glucose 270 mg/dL (74-106); Potassium 3.8 mmoL/L (3.5-5.1); Sodium 141 mmol/L (136-145)
== END ==
PROVIDERS: Visit Provider Internal Medicine Cardiovascular Disease
DX: E11.8 Type 2 diabetes mellitus with unspecified complications (principal); E78.2 Mixed hyperlipidemia; I65.29 Occlusion and stenosis of unspecified carotid artery; I70.1 Atherosclerosis of renal artery; I73.9 Peripheral vascular disease, unspecified; I77.1 Stricture of artery; N18.3 Chronic kidney disease, stage 3 (moderate); Q25.3 Supravalvular aortic stenosis; R06.02 Shortness of breath; R07.89 Other chest pain; R94.31 Abnormal electrocardiogram [ECG] [EKG]; Z79.4 Long term (current) use of insulin
CPT/HCPCS: 36415; 80048

== ENCOUNTER → 2019-05-24 09:35 | Outpatient (CLI) | payer MEDICARE, MEDICAID, SELFPAY ==
[2019-05-24 10:18] LABS: Basophils # 0.1 K/mm3 (0-0.2); Basophils % 1.1 % (0.1-2.0); Eosinophils # 0.7 K/mm3 (0.0-0.4); Eosinophils % 9.9 % (0.1-12.0); Hematocrit 33.4 % (37.0-47.0); Hemoglobin 10.4 g/dL (12.2-16.2); Lymphocytes # 1.3 K/mm3 (0.7-4.5); Mean Corpuscular HGB Conc 31.1 g/dL (31.8-35.4); Mean Corpuscular Hemoglobin 27.6 pg (27.0-31.2); Mean Corpuscular Volume 88.9 fl (81-99); Mean Platelet Volume 7.1 fl (7.4-10.4); Monocytes # 0.5 K/mm3 (0.1-1.0); Monocytes % 6.7 % (1.7-9.3); Neutrophils # 4.5 K/mm3 (1.8-7.8); Neutrophils % 64.2 % (37.0-80.0); Platelet Count 421 K/mm3 (142-424); Red Blood Count 3.76 M/mm3 (4.20-5.40); Red Cell Distribution Width 13.9 % (11.5-17.5)
[2019-05-24 10:43] LABS: Anion Gap 13.1 mEq/L (5-15); Blood Urea Nitrogen 37 mg/dL (7-18); Calcium 9.3 mg/dL (8.5-10.1); Carbon Dioxide 28 mmol/L (21.0-32.0); Chloride 105 mmol/L (98-107); Creatinine,Serum 2.87 mg/dL (0.55-1.02); Estimated Glomerular Filt Rate 16 ml/min (>60); GFR (African American) 20 ML/MIN (>60); Glucose 174 mg/dL (74-106); Potassium 4.1 mmoL/L (3.5-5.1); Sodium 142 mmol/L (136-145)
== END ==
PROVIDERS: Visit Provider Internal Medicine
DX: R07.89 Other chest pain (principal); R06.02 Shortness of breath; R94.31 Abnormal electrocardiogram [ECG] [EKG]; I77.1 Stricture of artery; I70.1 Atherosclerosis of renal artery; E78.2 Mixed hyperlipidemia; E11.8 Type 2 diabetes mellitus with unspecified complications; Z79.4 Long term (current) use of insulin
CPT/HCPCS: 36415; 80048; 85025

== ENCOUNTER 2019-05-31 07:51 | Inpatient (IN) ==
[2019-05-31 08:47] LABS: Basophils # 0.1 K/mm3 (0-0.2); Basophils % 1.1 % (0.1-2.0); Eosinophils # 0.6 K/mm3 (0.0-0.4); Hematocrit 34.9 % (37.0-47.0); Hemoglobin 10.5 g/dL (12.2-16.2); Lymphocytes # 1.4 K/mm3 (0.7-4.5); Lymphocytes % 21.2 % (10-50); Mean Corpuscular HGB Conc 30.1 g/dL (31.8-35.4); Mean Platelet Volume 7.3 fl (7.4-10.4); Monocytes # 0.3 K/mm3 (0.1-1.0); Monocytes % 4.7 % (1.7-9.3); Neutrophils # 4.3 K/mm3 (1.8-7.8); Platelet Count 456 K/mm3 (142-424); Red Blood Count 3.88 M/mm3 (4.20-5.40); Red Cell Distribution Width 14.1 % (11.5-17.5); White Blood Count 6.7 K/mm3 (4.8-10.8)
[2019-05-31 08:54] LABS: Anion Gap 11.1 mEq/L (5-15); Calcium 9.1 mg/dL (8.5-10.1)
[2019-05-31 14:52] LABS: Microscopic, Urine URINE MICROSCOPIC (MICROSCOPIC)
[2019-05-31 14:54] LABS: Appearance,Urine CLEAR (Clear); Bilirubin,Urine Negative (Negative); Blood, Urine TRACE-L (Negative); Color,Urine YELLOW (Yellow); Glucose,Urine (UA) 1+ (Negative); Ketones,Urine Negative (Negative); Leukocyte Esterase,Urine Negative (Negative); Protein,Urine 2+ (Negative); Specific Gravity, Urine 1.015 (1.005-1.030); Urobilinogen,Urine 0.2 EU/dl (0.2)
[2019-05-31 15:02] LABS: Calcium 8.3 mg/dL (8.5-10.1)
[2019-05-31 15:06] LABS: Bacteria,Urine 1+ /lpf; RBC,Urine Occasional #/hpf (0-3); Squamous Epithelial Cell,Urine Occasional #/hpf (0-5)
--- NOTE | 2019-05-31 16:00 | Consult Report ---
History of Present Illness Consult date: 05/31/19 Requesting physician: Darnell Narayan Chief complaint: SOA, Hypoxia Additional Medical History:: 1. CAD A. [facility], 02/2019, ANGIOGRAPHIC RESULTS: 1. The left main artery normal 2. The left anterior descending artery is proximally normal and has mid vessel 30-40% stenosis 3. The circumflex artery is a dominant vessel with mild 10% luminal irregularities 4. The right coronary artery is nondominant yet still large with 10% luminal irregularities 5. The CHACKO ventriculogram reveals normal 65% 6. The left ventricular end-diastolic pressure elevated at 30 to 35 mmHg 7. Right renal artery singular and has an ostial 80-90% stenosis 8. The left kidney has a dual arterial supply. The superior branch has a proximal ostial 40-50% stenosis while the inferior branch has a 50-60 9. The infrarenal abdominal aorta has a calcified plaque creating a 30% stenosis 10. The bilateral common internal and external iliac arteries as well as the common femoral arteries are widely patent with minimal nonflow limiting disease 11. The bilateral profunda femoris arteries are normal 12. The right superficial femoral artery has proximal complex 80-90% stenoses but is patent into the popliteal artery which also has moderate disease 13. The left superficial femoral artery is occluded 1 cm distal to its origin and and is collateralized into the popliteal artery from the profunda femoris IMPRESSION: 1. Nonflow limiting coronary artery disease as described above 2. Normal ejection fraction 3. Severe diastolic dysfunction 4. Severe right renal artery stenosis 5. Successful stenting the right renal artery severe disease reduced to 0% with 2 bare-metal stents 6. Severe bilateral SFA disease PLAN: 1. Aspirin Plavix 2. IV fluids along with diuretics given patient's elevated LVEDP 3. Repeat chemistry panel tomorrow and and 48 hours 4. LDL less than 55 5. In 2 weeks patient will be brought back to the [facility] and will undergo left groin access with plans to perform drug coated balloon angioplasty of the right SFA and popliteal artery 6. 2 weeks after this patient will be brought back to the [facility] with right femoral arterial access with plans to open the left chronically occluded SFA 7. Physical therapy 8. Avoidance of tobacco products 9. Aggressive risk factor modification 2. Right Renal artery stenosis, s/p 2 bare-metal stents placed, 02/2019 3. PAD/Bilateral SFA disese, see cath report 02/2019 A. Unsuccessful revascularization attempt of left SFA and popliteal arteries with dissection. 4. DM, insulin treated A. CKD, stage 4 with Cr 2.5-2.6 and GFR 05/2019 5. Hypertension/Diastolic dysfunction A. Echo, 01/2019, 2D 1. Left atrium is mildly enlarged, left ventricle is normal size, mild concentric left ventricular hypertrophy, visually estimated ejection fraction 55% with no regional wall motion abnormality. 2. The right atrium and right ventricle are normal size and contractility. 3. The aortic valve is minimally thickened and fibrosed. 4. The mitral and tricuspid valve leaflets are minimally thickened. 5. The pulmonic valve is poorly visualized. 6. No significant pericardial effusion noted. DOPPLER INTERROGATION: Doppler interrogation of the aortic, mitral and tricuspid valvular presence of mild mitral and tricuspid regurgitation, tricuspid regurgitation jet velocity is inadequate for calculation of the right ventricular systolic pressure, grade 1 diastolic dysfunction seen with tissue Doppler evidence of raised left atrial pressure. CONCLUSION: 1. Mildly enlarged left atrium, normal left ventricular size, mild concentric left ventricular hypertrophy, visually estimated ejection fraction 55% with no regional wall motion abnormality, grade 1 diastolic dysfunction seen with t issue Doppler evidence of raised left atrial pressure. 2. Mild mitral and tricuspid regurgitation 3. No significant pericardial effusion noted 6. Hyperlipidemia, on statin 7. Hypothyroidism, on replacement A. Thyroid u/s, 03/2018, Prior left thyroidectomy. Prior removal of the isthmus. The right lobe contains a small nodule which is low level of suspicion for malignancy 8. Carotid artery stenosis, 12/2017 A. CNI, <20% MENA, 20-49% LICA History of present illness: 68-year-old white female here in the cardiac [facility] as an outpatient for elective peripheral angiogram with attempt at angioplasty of the left SFA and popliteal arteries. Unfortunately, the attempt was unsuccessful with evidence of dissection noted without further need for treatment. The procedure was then aborted and patient was taken to the recovery area in stable condition. While in the recovery area the patient developed some nausea and dry heaves with no vomiting. At that point, it was noted that her oxygen saturation dropped and patient was treated with 100% nonrebreather mask and a total of 160 mg of lasix. With concern for aspiration, CXR was obtained with evidence of bilateral upper lobe infiltrates. ABG pending at this time. Pt was admitted to Dr. Narayan for further evaluation and treatment. [facility] History Medical History: Reports:: Cancer, Cardiomyopathy, Diabetes Mellitus Type 2, Hyperlipidemia, Hypertension, Peripheral Artery Disease, Renal Disease Denies:: Diabetes Mellitus Type 1, MRSA, Seizures *Have you ever received a pneumonia vaccine?: Yes *Have you received a flu vaccine this season?: Yes Other Medical History: Reports: Hypothyroidism Other Surgeries: Yes: No Previous Surgery, Angiogram, Cardiac Catheterization, Thyroidectomy, Tubal Ligation, Other Amputation: No Fractures: No - *Social History Educational Level: Completed High School Smoking Status: Never smoker Alcohol Intake: never Alcohol Intake Frequency:: other Substance Use Type: denies use *Occupational Status:: retired Housing: house Household Members: none *Travel in the last 8 weeks: None Family Hx:: Cancer, Diabetes, Heart Attack, Hyperlipidemia, Hypertension, Stroke Meds Home Medications Medication Instructions Recorded Confirmed Type timolol maleate 0.5 % eye drops OPHTHALMIC 30 Days 03/21/18 05/24/19 History levothyroxine 100 mcg tablet 100 mcg PO DAILY 90 Days #90 tab 10/27/18 05/24/19 Rx pen needle, diabetic 29 gauge x See Dose Instructions .ROUTE 01/17/19 05/24/19 History 1/2" .MEDSUPPLY 25 Days each cholecalciferol (vitamin D3) 2,000 2,000 unit PO 30 Days tab 02/20/19 05/24/19 History unit tablet insulin aspar prot-insulin aspart 30 unit SQ BID 28 Days #16.8 ml 02/20/19 05/24/19 History 100 unit/mL (70-30) subcutaneous pen insulin glargine (U-300) conc. 300 80 unit SUB-Q QHS 30 Days #8.1 ml 02/20/19 05/24/19 History unit/mL (1.5 mL) subcutaneous pen clopidogrel 75 mg tablet 75 mg PO QDAY #30 tab 03/03/19 05/24/19 Rx aspirin 81 mg tablet,delayed 81 mg PO DAILY #90 tab 03/20/19 05/24/19 Rx release carvedilol 25 mg tablet 25 mg PO BID #180 tab 03/20/19 05/24/19 Rx hydralazine 100 mg tablet 100 mg PO TID #90 tab 03/20/19 05/24/19 Rx ranitidine 150 mg tablet 150 mg PO BID #180 tab 03/20/19 05/24/19 Rx rosuvastatin 40 mg tablet 40 mg PO DAILY #90 tab 03/20/19 05/24/19 Rx isosorbide mononitrate ER 120 mg 120 mg PO DAILY #30 tab 05/12/19 05/24/19 Rx tablet,extended release 24 hr Allergies Allergy/AdvReac Type Severity Reaction Status Date / Time No Known Allergies Allergy Verified 05/31/19 15:57 Review of Systems - *Cardiovascular Reports shortness of breath, Denies chest pain - *Respiratory Reports shortness of breath - *Gastrointestinal Reports nausea, Denies abdominal pain, Denies vomiting - *Genitourinary Denies blood in urine - *Musculoskeletal Denies joint pain, Denies back pain - *Neurologic Denies dizziness, Denies loss of vision, Denies fainting, Denies tingling Exam Vital signs and Labs for Last 24 Hours: Temp Pulse Resp BP Pulse Ox 98.1 F 84 20 97/49 L 89 L 05/31/19 08:29 05/31/19 15:27 05/31/19 15:27 05/31/19 15:27 05/31/19 15:27 Laboratory Results - last 24 hr 05/31/19 08:25: WBC 6.7, RBC 3.88 L, Hgb 10.5 L, Hct 34.9 L, MCV 90.0, MCH 27.1, MCHC 30.1 L, RDW 14.1, Plt Count 456 H, MPV 7.3 L, Neut % (Auto) 64.0, Lymph % (Auto) 21.2, Becker % (Auto) 4.7, Eos % (Auto) 9.0, Baso % (Auto) 1.1, Neut # (Auto) 4.3, Lymph # (Auto) 1.4, Becker # (Auto) 0.3, Eos # (Auto) 0.6 H, Baso # (Auto) 0.1 05/31/19 08:25: Sodium 142, Potassium 3.1 L, Chloride 105, Carbon Dioxide 29, Anion Gap 11.1, BUN 30 H, Creatinine 2.54 H, Estimated Creat Clear 15, Estimated GFR 19 L*, Est GFR ( Amer) 23 L, Glucose 190 H, Calcium 9.1 05/31/19 13:29: Activated Clotting Time 306 H* 05/31/19 13:55: Urine Color Yellow, Urine Appearance Clear, Urine pH 6.0, Ur Specific [place] 1.015, Urine Protein 2+, Urine Glucose (UA) 1+, Urine Ketones Negative, Urine Blood Trace-l, Urine Nitrate Negative, Urine Bilirubin Negative, Urine Urobilinogen 0.2, Ur Leukocyte Esterase Negative, Urine RBC Occasional, Urine WBC None, Ur Squamous Epith Cells Occasional, Urine Bacteria 1+ 05/31/19 14:24: POC Glucose 145 H 05/31/19 14:40: Sodium 145, Potassium 3.0 L, Chloride 111 H, Carbon Dioxide 24, Anion Gap 13.0, BUN 28 H, Creatinine 2.52 H, Estimated Creat Clear 15, Estimated GFR 19 L*, Est GFR ( Amer) 23 L, Glucose 173 H, Calcium 8.3 L I & O for Last 24 hours: Intake & Output 05/29/19 05/30/19 05/31/19 06/01/19 11:59 11:59 11:59 11:59 Weight 205 lb - *Routine HEENT Exam Head: Present: normocephalic Eye: Present: EOMI, PERRL ENT: Present: mucous membranes moist - *Routine Neck Exam Present: supple. Absent: JVD, carotid bruit - *Routine Respiratory Exam Present: rhonchi. Absent: accessory muscle use, rales, wheezes - *Routine Cardiovascular Exam Present: RRR. Absent: murmur, gallop, rubs - *Routine Abdominal Exam Present: soft. Absent: tenderness, distended, guarding - *Routine Extremities Exam Absent: edema, calf tenderness - *Routine Neurological Exam Present: alert, oriented X3, moving all extremities Assessment and Plan (1) Hypoxia Current visit: Yes Status: Acute Category: Medical Code(s): R09.02 - Hypoxemia (2) Bilateral pneumonia Current visit: Yes Status: Acute Category: Medical Code(s): J18.9 - Pneumonia, unspecified organism (3) CAD (coronary artery disease) Current visit: No Status: Chronic Qualifiers: Coronary Disease-Associated Artery/Lesion type: [place] artery [place] vs. transplanted heart: [place] heart Associated angina: without angina Qualified Code(s): I25.10 - Atherosclerotic heart disease of [place] coronary artery without angina pectoris Category: Medical Code(s): I25.10 - Atherosclerotic heart disease of [place] co ronary artery without angina pectoris (4) CKD (chronic kidney disease) Current visit: No Status: Chronic Qualifiers: Chronic kidney disease stage: stage 3 (moderate) Qualified Code(s): N18.3 - Chronic kidney disease, stage 3 (moderate) Category: Medical Code(s): N18.9 - Chronic kidney disease, unspecified (5) Diabetes Current visit: No Status: Chronic Qualifiers: Diabetes mellitus type: type 2 Diabetes mellitus usp insulin use: with usp use Diabetes mellitus complication status: with unspecified complications Category: Medical Code(s): E11.9 - Type 2 diabetes mellitus without complications (6) Diastolic dysfunction Current visit: No Status: Chronic Category: Medical Code(s): I51.89 - Other ill-defined heart diseases (7) PAD (peripheral artery disease) Current visit: No Status: Chronic Category: Medical Code(s): I73.9 - Peripheral vascular disease, unspecified - Assessment and plan all Dx Assessment and Plan for all problems:: 1. BiPAP started upon arrival to floor. Will get ABG to assess and adjust therapy. 2. Continue home cardiac meds and adjust doses per BP if needed. 3. Check BMP in AM due to IVF given in setting of contrast use with CKD. 4. Additional DM and pneumonia treatment per Dr. Narayan. 5. SBP is low, will start [place] and titrate to keep SBP >100 mm Hg.
[2019-05-31 16:17] LABS: ABG Base Excess -4.4 mmol/L (-2.4-2.3); ABG HCO3 22.1 mmhg (22.0-26.0); ABG Oxygen Saturation 94 % (90-100); ABG PH 7.29 mmol/L (7.35-7.45); ABG PO2 82.2 mmhg (80-100); ABG TCO2 23.6 mmhg (23-27)
[2019-05-31 16:18] LABS: Allen's Test Acceptable; Oxygen 50% %
[2019-05-31 17:00] LABS: Basophils % 0.4 % (0.1-2.0); Eosinophils # 0.1 K/mm3 (0.0-0.4); Eosinophils % 1.8 % (0.1-12.0); Hematocrit 49.9 % (37.0-47.0); Lymphocytes # 0.8 K/mm3 (0.7-4.5); Lymphocytes % 17.2 % (10-50); Mean Corpuscular HGB Conc 28.7 g/dL (31.8-35.4); Mean Corpuscular Volume 93.5 fl (81-99); Monocytes # 0.1 K/mm3 (0.1-1.0); Neutrophils # 3.8 K/mm3 (1.8-7.8); Neutrophils % 78.6 % (37.0-80.0); Platelet Count 433 K/mm3 (142-424); Red Blood Count 5.34 M/mm3 (4.20-5.40); Red Cell Distribution Width 14.1 % (11.5-17.5); White Blood Count 4.9 K/mm3 (4.8-10.8)
[2019-05-31 17:06] LABS: Hemoglobin 14.3 g/dL (12.2-16.2)
--- NOTE | 2019-05-31 17:42 | History & Physical Report ---
*Admission Date: 05/31/19 *Chief complaint: Aspiration with evidence of bilateral pneumonitis *History of present illness: 68-year-old white female with peripheral arterial disease who was brought to the hospital today for elective outpatient peripheral arterial catheterization with stent placement in the lower extremities. Patient has a history of renal disease and was given 2 L of IV fluid before the procedure and nebulized Mucomyst for renal protection, which caused her to apparently cough and vomit a significant amount of liquid while on the cath table. Catheter procedure was done-please see cardiology notes, but after the procedure patient was significantly hypoxic with some low blood pressures noted. Placed on BiPAP therapy. Chest x-ray revealed the presence of bilateral upper lobe infiltrates consistent with pneumonitis and cardiology felt that she had "aspirated but did not need antibiotics." Patient was admitted to specialty care unit/ICU unit where I examined her. Of note in the intervening time she has dropped her blood pressure and [place]- Synephrine drip has been started. At the time I examined her she was more alert. Blood pressure was in the 112 range. Heart rate acceptable. She was able to respond to questions appropriately. [facility] History I have reviewed the patient's past medical history: Yes Medical History: Reports:: Cancer, Cardiomyopathy, Diabetes Mellitus Type 2, Hyperlipidemia, Hypertension, Peripheral Artery Disease, Renal Disease Denies:: Diabetes Mellitus Type 1, MRSA, Seizures *Have you ever received a pneumonia vaccine?: No *Have you received a flu vaccine this season?: No Other Medical History: Reports: Hypothyroidism Other Surgeries: Yes: No Previous Surgery, Angiogram, Cardiac Catheterization, Thyroidectomy, Tubal Ligation, Other Amputation: No Fractures: No - *Social History Educational Level: Completed High School Smoking Status: Never smoker Alcohol Intake: never Alcohol Intake Frequency:: other Substance Use Type: denies use *Occupational Status:: retired Housing: house Household Members: none *Travel in the last 8 weeks: None Family Hx:: Cancer, Diabetes, Heart Attack, Hyperlipidemia, Hypertension, Stroke Review of Systems - Review of Systems Review of systems:: unable to obtain Patient on BiPAP, unable to give detailed answers to questions. - *Neurologic Denies dizziness, Denies loss of vision, Denies fainting, Denies tingling Meds Home Medications Medication Instructions Recorded Confirmed Type timolol maleate 0.5 % eye drops OPHTHALMIC 30 Days 03/21/18 05/24/19 History levothyroxine 100 mcg tablet 100 mcg PO DAILY 90 Days #90 tab 10/27/18 05/24/19 Rx pen needle, diabetic 29 gauge x See Dose Instructions .ROUTE 01/17/19 05/24/19 History 1/2" .MEDSUPPLY 25 Days each cholecalciferol (vitamin D3) 2,000 2,000 unit PO 30 Days tab 02/20/19 05/24/19 History unit tablet insulin aspar prot-insulin aspart 30 unit SQ BID 28 Days #16.8 ml 02/20/19 05/24/19 History 100 unit/mL (70-30) subcutaneous pen insulin glargine (U-300) conc. 300 80 unit SUB-Q QHS 30 Days #8.1 ml 02/20/19 05/24/19 History unit/mL (1.5 mL) subcutaneous pen clopidogrel 75 mg tablet 75 mg PO QDAY #30 tab 03/03/19 05/24/19 Rx aspirin 81 mg tablet,delayed 81 mg PO DAILY #90 tab 03/20/19 05/24/19 Rx release carvedilol 25 mg tablet 25 mg PO BID #180 tab 03/20/19 05/24/19 Rx hydralazine 100 mg tablet 100 mg PO TID #90 tab 03/20/19 05/24/19 Rx ranitidine 150 mg tablet 150 mg PO BID #180 tab 03/20/19 05/24/19 Rx rosuvastatin 40 mg tablet 40 mg PO DAILY #90 tab 03/20/19 05/24/19 Rx isosorbide mononitrate ER 120 mg 120 mg PO DAILY #30 tab 05/12/19 05/24/19 Rx tablet,extended release 24 hr Allergies Allergy/AdvReac Type Severity Reaction Status Date / Time No Known Allergies Allergy Verified 05/31/19 15:57 Exam Vital signs and Labs for Last 24 Hours: Temp Pulse Resp BP Pulse Ox 98.2 F 84 20 97/49 L 89 L 05/31/19 16:00 05/31/19 15:27 05/31/19 15:27 05/31/19 15:27 05/31/19 15:27 Laboratory Results - last 24 hr 05/31/19 08:25: WBC 6.7, RBC 3.88 L, Hgb 10.5 L, Hct 34.9 L, MCV 90.0, MCH 27.1, MCHC 30.1 L, RDW 14.1, Plt Count 456 H, MPV 7.3 L, Neut % (Auto) 64.0, Lymph % (Auto) 21.2, [place] % (Auto) 4.7, Eos % (Auto) 9.0, Baso % (Auto) 1.1, Neut # (Auto) 4.3, Lymph # (Auto) 1.4, [place] # (Auto) 0.3, Eos # (Auto) 0.6 H, Baso # (Auto) 0.1 05/31/19 08:25: Sodium 142, Potassium 3.1 L, Chloride 105, Carbon Dioxide 29, Anion Gap 11.1, BUN 30 H, Creatinine 2.54 H, Estimated Creat Clear 15, Estimated GFR 19 L*, Est GFR ( Amer) 23 L, Glucose 190 H, Calcium 9.1 05/31/19 13:29: Activated Clotting Time 306 H* 05/31/19 13:55: Urine Color Yellow, Urine Appearance Clear, Urine pH 6.0, Ur Specific [place] 1.015, Urine Protein 2+, Urine Glucose (UA) 1+, Urine Ketones Negative, Urine Blood Trace-l, Urine Nitrate Negative, Urine Bilirubin Negative, Urine Urobilinogen 0.2, Ur Leukocyte Esterase Negative, Urine RBC Occasional, Urine WBC None, Ur Squamous Epith Cells Occasional, Urine Bacteria 1+ 05/31/19 14:24: POC Glucose 145 H 05/31/19 14:40: Sodium 145, Potassium 3.0 L, Chloride 111 H, Carbon Dioxide 24, Anion Gap 13.0, BUN 28 H, Creatinine 2.52 H, Estimated Creat Clear 15, Estimated GFR 19 L*, Est GFR ( Amer) 23 L, Glucose 173 H, Calcium 8.3 L 05/31/19 14:40: WBC 4.9 D, RBC 5.34 D, Hgb 14.3 D, Hct 49.9 H, MCV 93.5, MCH 26.9 L, MCHC 28.7 L, RDW 14.1, Plt Count 433 H, Neut % (Auto) 78.6, Lymph % (Auto) 17.2, [place] % (Auto) 2.0, Eos % (Auto) 1.8, Baso % (Auto) 0.4, Neut # (Auto) 3.8, Lymph # (Auto) 0.8, [place] # (Auto) 0.1, Eos # (Auto) 0.1, Baso # (Auto) 0.0 05/31/19 15:48: Specimen Source [place], O2 % 50%, ABG pH 7.29 L, ABG pCO2 47.0 H, ABG pO2 82.2, ABG HCO3 22.1, ABG Total CO2 23.6, ABG O2 Saturation 94, ABG Base Excess -4.4 L, Will Test Acceptable I & O for Last 24 hours: Intake & Output 05/29/19 05/30/19 05/31/19 06/01/19 11:59 11:59 11:59 11:59 Weight 205 lb 205 lb 5 oz Narrative: Patient is on BiPAP, in the intensive care unit. Currently on [place]-Synephrine infusion. Blood pressure and pulse noted. Extremities are warm and well-perfused. Abdomen is soft, minimal epigastric discomfort but no masses or guarding. Lungs have rhonchi and crackles throughout. Heart rate regular. Able to move all extremities well. Assessment and Plan (1) Hypoxia Current visit: Yes Status: Acute Category: Medical Code(s): R09.02 - Hypoxemia (2) Bilateral pneumonia Current visit: Yes Status: Acute Category: Medical Code(s): J18.9 - Pneumonia, unspecified organism Significant pulmonary infiltrates. Begin broad-spectrum antibiotic therapy given hypotension. Blood cultures will be ordered. Fluid support with appropriate sepsis bolus, hopefully we will be able to wean off pressors. Follow-up with chest x-ray tomorrow. (3) CAD (coronary artery disease) Current visit: No Status: Chronic Qualifiers: Coronary Disease-Associated Artery/Lesion type: [place] artery [place] vs. transplanted heart: [place] heart Associated angina: without angina Qualified Code(s): I25.10 - Atherosclerotic heart disease of [place] coronary artery without angina pectoris Category: Medical Code(s): I25.10 - Atherosclerotic heart disease of [place] coronary artery without angina pectoris (4) CKD (chronic kidney disease) Current visit: No Status: Chronic Qualifiers: Chronic kidney disease stage: stage 3 (moderate) Qualified Code(s): N18.3 - Chronic kidney disease, stage 3 (moderate) Category: Medical Code(s): N18.9 - Chronic kidney disease, unspecified Patient was given inhaled Mucomyst, possibly initiating the vomiting issues. Plan will be to follow kidney function tomorrow. Fluid bolus as noted. 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 (7) PAD (peripheral artery disease) Current visit: No Status: Chronic Category: Medical Code(s): I73.9 - Peripheral vascular disease, unspecified (8) Severe sepsis Current visit: Yes Status: Acute Category: Medical Code(s): A41.9 - Sepsis, unspecified organism; R65.20 - Severe sepsis without septic shock - Assessment and plan all Dx Assessment and Plan for all problems:: Please note 2 hours critical care time
[2019-05-31 18:15] LABS: Eosinophils % 1 % (0-3); Lymphocytes % 22 % (10-50); Monocytes % 4 % (2-9); Neutrophils % 67 % (42-76); Total Cells Counted 100
[2019-05-31 18:16] LABS: Hypochromasia 2+
[2019-05-31 18:28] LABS: ABG Base Excess -6.1 mmol/L (-2.4-2.3); ABG HCO3 20.6 mmhg (22.0-26.0); ABG Oxygen Saturation 96 % (90-100); ABG PCO2 44.7 mmhg (35.0-45.0); ABG PH 7.28 mmol/L (7.35-7.45); ABG PO2 98.8 mmhg (80-100)
[2019-05-31 18:31] LABS: Oxygen 40% %
[2019-05-31 18:32] LABS: Allen's Test Acceptable; PEEP 6
--- NOTE | 2019-05-31 20:40 | Sepsis Event Note ---
Tissue Perfusion Evaluation Sepsis Re-Evaluation Performed: Yes Date Performed: 05/31/19 Time Performed: 18:00 Sepsis Follow-Up: Yes: Respiratory exam, Cardiovascular exam, Capillary refill, Peripheral pulse strength, Peripheral pulse location, Skin exam, Vital Signs Most Recent Vital Signs: Temperature 98.3 F 05/31/19 19:40 Temperature Source Oral 05/31/19 19:40 Pulse Rate 68 05/31/19 20:30 Respiratory Rate 16 05/31/19 20:30 Blood Pressure 128/61 05/31/19 20:30 Blood Pressure Mean 83 05/31/19 20:30 Blood Pressure Source Automatic Cuff 05/31/19 19:40 Blood Pressure Position Supine 05/31/19 19:40 02 Sat by Pulse Oximetry 94 L 05/31/19 20:30 Oxygen Delivery Method 05/31/19 20:30 Oxygen Flow Rate (LPM) 40 05/31/19 19:40
[2019-06-01 06:23] LABS: Basophils % 0.3 % (0.1-2.0); Eosinophils # 0.1 K/mm3 (0.0-0.4); Eosinophils % 0.7 % (0.1-12.0); Lymphocytes # 0.5 K/mm3 (0.7-4.5); Lymphocytes % 3.4 % (10-50); Mean Corpuscular HGB Conc 29.2 g/dL (31.8-35.4); Mean Corpuscular Volume 92.5 fl (81-99); Mean Platelet Volume 8.1 fl (7.4-10.4); Monocytes # 0.5 K/mm3 (0.1-1.0); Monocytes % 3.1 % (1.7-9.3); Neutrophils # 14.4 K/mm3 (1.8-7.8); Neutrophils % 92.5 % (37.0-80.0); Platelet Count 368 K/mm3 (142-424); Red Blood Count 4.21 M/mm3 (4.20-5.40); Red Cell Distribution Width 14.3 % (11.5-17.5); White Blood Count 15.6 K/mm3 (4.8-10.8)
[2019-06-01 06:38] LABS: Hemoglobin 9.8 g/dL (12.2-16.2)
[2019-06-01 06:46] LABS: Albumin Level 2.3 gm/dL (3.4-5.0); Albumin/Globulin Ratio 0.7 (1.1-1.8); Anion Gap 17.1 mEq/L (5-15); Bilirubin,Total 0.2 mg/dL (0.2-1.0); Calcium 7.7 mg/dL (8.5-10.1); Globulin 3.1 gm/dl (1.3-3.2); Total Protein,Serum 5.4 gm/dL (6.4-8.2)
--- NOTE | 2019-06-01 08:10 | Progress Note ---
Subjective Date: 06/01/19 Time: 08:07 Principal diagnosis: Hypoxia, sepsis Interval history: 68-year-old white female sitting up in bed in no acute distress. Patient continues to be on BiPAP therapy. She is off of IV pressor agents. She is getting IV antibiotics and fluids. She is talking and denies any chest pain, pressure or tightness. Blood pressure has improved overnight. Pulse rate has been stable in the 60s and 70s. Patient did receive IV fluids per sepsis protocol with subsequent dilution of hemoglobin with slight increase in creatinine. White count noted to be elevated to 15,000. Chest x-ray shows improvement this morning. Exam Vital signs and Labs for Last 24 Hours: Temp Pulse Resp BP Pulse Ox 99.1 F 74 17 159/66 H 95 06/01/19 08:00 06/01/19 08:00 06/01/19 08:00 06/01/19 08:00 06/01/19 08:00 Laboratory Results - last 24 hr 05/31/19 08:25: WBC 6.7, RBC 3.88 L, Hgb 10.5 L, Hct 34.9 L, MCV 90.0, MCH 27.1, MCHC 30.1 L, RDW 14.1, Plt Count 456 H, MPV 7.3 L, Neut % (Auto) 64.0, Lymph % (Auto) 21.2, [place] % (Auto) 4.7, Eos % (Auto) 9.0, Baso % (Auto) 1.1, Neut # (Auto) 4.3, Lymph # (Auto) 1.4, [place] # (Auto) 0.3, Eos # (Auto) 0.6 H, Baso # (Auto) 0.1 05/31/19 08:25: Sodium 142, Potassium 3.1 L, Chloride 105, Carbon Dioxide 29, Anion Gap 11.1, BUN 30 H, Creatinine 2.54 H, Estimated Creat Clear 15, Estimated GFR 19 L*, Est GFR ( Amer) 23 L, Glucose 190 H, Calcium 9.1 05/31/19 13:29: Activated Clotting Time 306 H* 05/31/19 13:55: Urine Color Yellow, Urine Appearance Clear, Urine pH 6.0, Ur Specific [place] 1.015, Urine Protein 2+, Urine Glucose (UA) 1+, Urine Ketones Negative, Urine Blood Trace-l, Urine Nitrate Negative, Urine Bilirubin Negative, Urine Urobilinogen 0.2, Ur Leukocyte Esterase Negative, Urine RBC Occasional, Urine WBC None, Ur Squamous Epith Cells Occasional, Urine Bacteria 1+ 05/31/19 14:24: POC Glucose 145 H 05/31/19 14:40: Sodium 145, Potassium 3.0 L, Chloride 111 H, Carbon Dioxide 24, Anion Gap 13.0, BUN 28 H, Creatinine 2.52 H, Estimated Creat Clear 15, Estimated GFR 19 L*, Est GFR ( Amer) 23 L, Glucose 173 H, Calcium 8.3 L 05/31/19 14:40: WBC 4.9 D, RBC 5.34 D, Hgb 14.3 D, Hct 49.9 H, MCV 93.5, MCH 26.9 L, MCHC 28.7 L, RDW 14.1, Plt Count 433 H, Neut % (Auto) 78.6, Lymph % (Auto) 17.2, [place] % (Auto) 2.0, Eos % (Auto) 1.8, Baso % (Auto) 0.4, Neut # (Auto) 3.8, Lymph # (Auto) 0.8, [place] # (Auto) 0.1, Eos # (Auto) 0.1, Baso # (Auto) 0.0, Total Counted 100, Neutrophils % (Manual) 67, Band Neutrophils % 6.0, Lymphocytes % (Manual) 22, Monocytes % (Manual) 4, Eosinophils % (Manual) 1, Platelet Estimate Clumped, Hypochromasia 2+ 05/31/19 15:48: Specimen Source [place], O2 % 50%, ABG pH 7.29 L, ABG pCO2 47.0 H, ABG pO2 82.2, ABG HCO3 22.1, ABG Total CO2 23.6, ABG O2 Saturation 94, ABG Base Excess -4.4 L, Will Test Acceptable 05/31/19 18:11: Lactate 2.0 05/31/19 18:26: Specimen Source Left radial, O2 % 40%, ABG pH 7.28 L, ABG pCO2 44.7, ABG pO2 98.8, ABG HCO3 20.6 L, ABG Total CO2 22.0 L, ABG O2 Saturation 96, ABG Base Excess -6.1 L, Will Test Acceptable, PEEP 6 06/01/19 05:25: WBC 15.6 H D, RBC 4.21, Hgb 9.8 L D, Hct 39.0, MCV 92.5, MCH 27.0, MCHC 29.2 L, RDW 14.3, Plt Count 368, MPV 8.1, Neut % (Auto) 92.5 H, Lymph % (Auto) 3.4 L, [place] % (Auto) 3.1, Eos % (Auto) 0.7, Baso % (Auto) 0.3, Neut # (Auto) 14.4 H, Lymph # (Auto) 0.5 L, [place] # (Auto) 0.5, Eos # (Auto) 0.1, Baso # (Auto) 0.0 06/01/19 05:25: Sodium 144, Potassium 4.1 D, Chloride 111 H, Carbon Dioxide 20 L, Anion Gap 17.1 H, BUN 34 H, Creatinine 3.14 H D, Estimated Creat Clear 27, Estimated GFR 15 L*, Est GFR ( Amer) 18 L* D, Glucose 187 H, Calcium 7.7 L, Total Bilirubin 0.2, AST 16, ALT 19, Alkaline Phosphatase 63, Total Protein 5.4 L, Albumin 2.3 L, Globulin 3.1, Albumin/Globulin Ratio 0.7 L I & O for Last 24 hours: Intake & Output 05/29/19 05/30/19 05/31/19 06/01/19 11:59 11:59 11:59 11:59 Intake Total 3402 / 3402 Output Total 600 / 600 Balance 2802 / 2802 Weight 205 lb 212 lb - *Routine HEENT Exam Head: Present: normocephalic Eye: Present: EOMI, PERRL ENT: Present: mucous membranes moist - *Routine Respiratory Exam Present: CTA bilaterally. Absent: accessory muscle use, rales, rhonchi, wheezes - *Routine Cardiovascular Exam Present: RRR. Absent: murmur, gallop, rubs - *Routine Abdominal Exam Present: soft. Absent: tenderness, distended, guarding - *Routine Extremities Exam Absent: edema, calf tenderness - *Routine Neurological Exam Present: alert, oriented X3, moving all extremities Progress Note: A&P (1) Hypoxia Status: Acute Current Visit: Yes (2) Bilateral pneumonia Status: Acute Current Visit: Yes (3) CAD (coronary artery disease) Status: Chronic Current Visit: No (4) CKD (chronic kidney disease) Status: Chronic Current Visit: No (5) Diabetes Status: Chronic Current Visit: No (6) Diastolic dysfunction Status: Chronic Current Visit: No (7) PAD (peripheral artery disease) Status: Chronic Current Visit: No (8) Severe sepsis Status: Acute Current Visit: Yes Assessment and Plan for All Diagnoses:: 1. Sepsis treatment for pneumonia per Dr. Narayan. Appreciate input and help. 2. Resume home meds as able including DAPT.
--- NOTE | 2019-06-01 08:11 | Progress Note ---
Internal Medicine - PN: Subj *Date: 06/01/19 *Time: 08:09 Interval history: Patient responded well to fluid boluses and [place]-Synephrine overnight, her blood pressure this morning is in the 120s, off of pressor agents. She is awake, alert, active. Her BiPAP weaning overnight continued to results and lower O2 saturations and so she remains on BiPAP. She reports that she is very thirsty but she feels much better. Exam Vital signs and Labs for Last 24 Hours: Temp Pulse Resp BP Pulse Ox 99.1 F 74 17 159/66 H 95 06/01/19 08:00 06/01/19 08:00 06/01/19 08:00 06/01/19 08:00 06/01/19 08:00 Laboratory Results - last 24 hr 05/31/19 08:25: WBC 6.7, RBC 3.88 L, Hgb 10.5 L, Hct 34.9 L, MCV 90.0, MCH 27.1, MCHC 30.1 L, RDW 14.1, Plt Count 456 H, MPV 7.3 L, Neut % (Auto) 64.0, Lymph % (Auto) 21.2, [place] % (Auto) 4.7, Eos % (Auto) 9.0, Baso % (Auto) 1.1, Neut # (Auto) 4.3, Lymph # (Auto) 1.4, [place] # (Auto) 0.3, Eos # (Auto) 0.6 H, Baso # (Auto) 0.1 05/31/19 08:25: Sodium 142, Potassium 3.1 L, Chloride 105, Carbon Dioxide 29, Anion Gap 11.1, BUN 30 H, Creatinine 2.54 H, Estimated Creat Clear 15, Estimated GFR 19 L*, Est GFR ( Amer) 23 L, Glucose 190 H, Calcium 9.1 05/31/19 13:29: Activated Clotting Time 306 H* 05/31/19 13:55: Urine Color Yellow, Urine Appearance Clear, Urine pH 6.0, Ur Specific [place] 1.015, Urine Protein 2+, Urine Glucose (UA) 1+, Urine Ketones Negative, Urine Blood Trace-l, Urine Nitrate Negative, Urine Bilirubin Negative, Urine Urobilinogen 0.2, Ur Leukocyte Esterase Negative, Urine RBC Occasional, Urine WBC None, Ur Squamous Epith Cells Occasional, Urine Bacteria 1+ 05/31/19 14:24: POC Glucose 145 H 05/31/19 14:40: Sodium 145, Potassium 3.0 L, Chloride 111 H, Carbon Dioxide 24, Anion Gap 13.0, BUN 28 H, Creatinine 2.52 H, Estimated Creat Clear 15, Estimated GFR 19 L*, Est GFR ( Amer) 23 L, Glucose 173 H, Calcium 8.3 L 05/31/19 14:40: WBC 4.9 D, RBC 5.34 D, Hgb 14.3 D, Hct 49.9 H, MCV 93.5, MCH 26.9 L, MCHC 28.7 L, RDW 14.1, Plt Count 433 H, Neut % (Auto) 78.6, Lymph % (Auto) 17.2, [place] % (Auto) 2.0, Eos % (Auto) 1.8, Baso % (Auto) 0.4, Neut # (Auto) 3.8, Lymph # (Auto) 0.8, [place] # (Auto) 0.1, Eos # (Auto) 0.1, Baso # (Auto) 0.0, Total Counted 100, Neutrophils % (Manual) 67, Band Neutrophils % 6.0, Lymphocytes % (Manual) 22, Monocytes % (Manual) 4, Eosinophils % (Manual) 1, Platelet Estimate Clumped, Hypochromasia 2+ 05/31/19 15:48: Specimen Source [place], O2 % 50%, ABG pH 7.29 L, ABG pCO2 47.0 H, ABG pO2 82.2, ABG HCO3 22.1, ABG Total CO2 23.6, ABG O2 Saturation 94, ABG Base Excess -4.4 L, Will Test Acceptable 05/31/19 18:11: Lactate 2.0 05/31/19 18:26: Specimen Source Left radial, O2 % 40%, ABG pH 7.28 L, ABG pCO2 44.7, ABG pO2 98.8, ABG HCO3 20.6 L, ABG Total CO2 22.0 L, ABG O2 Saturation 96, ABG Base Excess -6.1 L, Will Test Acceptable, PEEP 6 06/01/19 05:25: WBC 15.6 H D, RBC 4.21, Hgb 9.8 L D, Hct 39.0, MCV 92.5, MCH 27.0, MCHC 29.2 L, RDW 14.3, Plt Count 368, MPV 8.1, Neut % (Auto) 92.5 H, Lymph % (Auto) 3.4 L, [place] % (Auto) 3.1, Eos % (Auto) 0.7, Baso % (Auto) 0.3, Neut # (Auto) 14.4 H, Lymph # (Auto) 0.5 L, [place] # (Auto) 0.5, Eos # (Auto) 0.1, Baso # (Auto) 0.0 06/01/19 05:25: Sodium 144, Potassium 4.1 D, Chloride 111 H, Carbon Dioxide 20 L, Anion Gap 17.1 H, BUN 34 H, Creatinine 3.14 H D, Estimated Creat Clear 27, Estimated GFR 15 L*, Est GFR ( Amer) 18 L* D, Glucose 187 H, Calcium 7.7 L, Total Bilirubin 0.2, AST 16, ALT 19, Alkaline Phosphatase 63, Total Protein 5.4 L, Albumin 2.3 L, Globulin 3.1, Albumin/Globulin Ratio 0.7 L I & O for Last 24 hours: Intake & Output 05/29/19 05/30/19 05/31/19 06/01/19 11:59 11:59 11:59 11:59 Intake Total 3402 / 3402 Output Total 600 / 600 Balance 2802 / 2802 Weight 205 lb 212 lb Narrative: Alert, oriented x3. Oropharynx dry but clear. No peripheral edema, extremities warm and well-perfused. Abdomen soft and nontender. Heart rate regular. Lung brown are fairly clear, good air movement in the posterior brown, better than yesterday, she is able to sit up with some assistance. Assessment and Plan (1) Hypoxia Current visit: Yes Status: Acute Category: Medical Code(s): R09.02 - Hypoxemia (2) Bilateral pneumonia Current visit: Yes Status: Acute Category: Medical Code(s): J18.9 - Pneumonia, unspecified organism (3) CAD (coronary artery disease) Current visit: No Status: Chronic Qualifiers: Qualified Code(s): I25.10 - Atherosclerotic heart disease of [place] coronary artery without angina pectoris Category: Medical Code(s): I25.10 - Atherosclerotic heart disease of [place] coronary artery without angina pectoris (4) CKD (chronic kidney disease) Current visit: No Status: Chronic Qualifiers: Qualified Code(s): N18.3 - Chronic kidney disease, stage 3 (moderate) Category: Medical Code(s): N18.9 - Chronic kidney disease, unspecified (5) Diabetes Current visit: No Status: Chronic Category: Medical Code(s): E11.9 - Type 2 diabetes mellitus without complications (6) Diastolic dysfunction Current visit: No Status: Chronic Category: Medical Code(s): I51.89 - Other ill-defined heart diseases (7) PAD (peripheral artery disease) Current visit: No Status: Chronic Category: Medical Code(s): I73.9 - Peripheral vascular disease, unspecified (8) Severe sepsis Current visit: Yes Status: Acute Category: Medical Code(s): A41.9 - Sepsis, unspecified organism; R65.20 - Severe sepsis without septic shock - Assessment and plan all Dx Assessment and Plan for all problems:: Overall patient is nicely improving. We will continue broad-spectrum antibiotics for severe sepsis most likely from bilateral pneumonia. I am not sure if this was truly an aspiration event, I wonder if patient presented with concomitant pneumonia that had not yet declared itself before the procedure as her infiltrate pattern and history does not match that of classic aspiration pneumonia. Regardless, she is improving. We will continue current therapy. PT/OT evaluation given her significant weakness and her status of living by herself. Continue IV fluids as she appears dry and her creatinine is slightly increased today, especially in the context of recent -- albeit low dose contrast administration. Labs tonight, repeat tomorrow morning. Please note 1 hour of critical care time
--- NOTE | 2019-06-01 09:02 | Pharmacy Consult Notes ---
[facility] Pharmacy VTE Monitoring - Patient Demographics Admission date: 05/31/19 Report Date: 06/01/19 Time: 09:02 Allergies/Adverse Reactions: Patient Allergies No Known Allergies Allergy (Verified 05/31/19 15:57) Height: 1.65 m Weight: 96.162 kg Patient Problems: Current Active Problems (Updated 05/31/19 @ 17:44 by Darnell Narayan MD) Hypoxia (Acute) Bilateral pneumonia (Acute) Aspiration into respiratory tract (Acute) Severe sepsis (Acute) - VTE Risk Labs: VTE Related Lab Results Hgb 9.8 g/dL (12.2-16.2) L D 06/01/19 05:25 Hct 39.0 % (37.0-47.0) 06/01/19 05:25 Plt Count 368 K/mm3 (142-424) 06/01/19 05:25 BUN 34 mg/dL (7-18) H 06/01/19 05:25 Creatinine 3.14 mg/dL (0.55-1.02) H D 06/01/19 05:25 Estimated Creat Clear 27 mL/min (50-200) 06/01/19 05:25 Was VTE Risk Assessment Performed: Yes VTE Score: 4 VTE Risk Level: Low Risk Clinical Trial Participant: No - Prophylaxis VTE Prophylaxis Ordered?: Yes Types of VTE Prophylaxis: TEDS Knee High Location of Applied Device: Not Applicable
[2019-06-01 12:29] LABS: Hypochromasia 3+; Lymphocytes % 5 % (10-50); Monocytes % 2 % (2-9); Neutrophils % 90 % (42-76); Total Cells Counted 100
[2019-06-01 18:11] LABS: Anion Gap 14.9 mEq/L (5-15); Calcium 7.4 mg/dL (8.5-10.1)
[2019-06-02 06:16] LABS: Basophils % 0.4 % (0.1-2.0); Eosinophils # 0.8 K/mm3 (0.0-0.4); Eosinophils % 7.8 % (0.1-12.0); Hematocrit 28.7 % (37.0-47.0); Hemoglobin 8.2 g/dL (12.2-16.2); Lymphocytes # 1.2 K/mm3 (0.7-4.5); Lymphocytes % 12.5 % (10-50); Mean Corpuscular HGB Conc 28.4 g/dL (31.8-35.4); Monocytes # 0.4 K/mm3 (0.1-1.0); Monocytes % 3.8 % (1.7-9.3); Neutrophils # 7.2 K/mm3 (1.8-7.8); Neutrophils % 75.5 % (37.0-80.0); Platelet Count 319 K/mm3 (142-424); Red Blood Count 3.19 M/mm3 (4.20-5.40); Red Cell Distribution Width 14.1 % (11.5-17.5); White Blood Count 9.6 K/mm3 (4.8-10.8)
[2019-06-02 06:33] LABS: Albumin Level 2.4 gm/dL (3.4-5.0); Albumin/Globulin Ratio 0.8 (1.1-1.8); Anion Gap 14.2 mEq/L (5-15); Bilirubin,Total 0.2 mg/dL (0.2-1.0); Calcium 7.4 mg/dL (8.5-10.1); Globulin 3.2 gm/dl (1.3-3.2); Total Protein,Serum 5.6 gm/dL (6.4-8.2)
--- NOTE | 2019-06-02 08:39 | Progress Note ---
Internal Medicine - PN: Subj *Date: 06/02/19 *Time: 08:36 Interval history: Patient is done very well clinically over the last 24 hours, is now up in a chair, completely off BiPAP support, only on a nasal cannula. Did very well with physical therapy evaluation yesterday-recommended considerati on of skilled rehab for a couple of weeks given her significant weakness. Cultures of blood remain negative. Patient's respiratory status is improved nicely. Exam Vital signs and Labs for Last 24 Hours: Temp Pulse Resp BP Pulse Ox 98.2 F 75 18 114/51 L 95 06/02/19 04:00 06/02/19 04:00 06/02/19 04:00 06/02/19 04:00 06/02/19 04:00 Laboratory Results - last 24 hr 05/31/19 13:55: Activated Clotting Time 170 H* D 06/01/19 05:25: Total Counted 100, Neutrophils % (Manual) 90 H, Band Neutrophils % 2.0, Lymphocytes % (Manual) 5 L, Monocytes % (Manual) 2, Metamyelocytes % 1.0, Platelet Estimate Normal, RBC Morphology Not Reportable, Hypochromasia 3+ 06/01/19 11:24: POC Glucose 273 H 06/01/19 16:39: POC Glucose 265 H 06/01/19 17:50: Sodium 141, Potassium 3.9, Chloride 109 H, Carbon Dioxide 21, Anion Gap 14.9, BUN 37 H, Creatinine 3.55 H, Estimated Creat Clear 24, Estimated GFR 13 L*, Est GFR ( Amer) 16 L*, Glucose 244 H D, Calcium 7.4 L 06/01/19 20:06: POC Glucose 228 H 06/02/19 05:30: WBC 9.6 D, RBC 3.19 L, Hgb 8.2 L, Hct 28.7 L, MCV 90.0, MCH 25.5 L, MCHC 28.4 L, RDW 14.1, Plt Count 319, MPV 7.0 L, Neut % (Auto) 75.5, Lymph % (Auto) 12.5, [place] % (Auto) 3.8, Eos % (Auto) 7.8, Baso % (Auto) 0.4, Neut # (Auto) 7.2, Lymph # (Auto) 1.2, [place] # (Auto) 0.4, Eos # (Auto) 0.8 H, Baso # (Auto) 0.0 06/02/19 05:30: Sodium 142, Potassium 4.2, Chloride 111 H, Carbon Dioxide 21, Anion Gap 14.2, BUN 36 H, Creatinine 3.59 H, Estimated Creat Clear 23, Estimated GFR 13 L*, Est GFR ( Amer) 15 L*, Glucose 160 H D, Calcium 7.4 L, Total Bilirubin 0.2, AST 17, ALT 25 D, Alkaline Phosphatase 67, Total Protein 5.6 L, Albumin 2.4 L, Globulin 3.2, Albumin/Globulin Ratio 0.8 L 06/02/19 06:06: POC Glucose 166 H I & O for Last 24 hours: Intake & Output 05/30/19 05/31/19 06/01/19 06/02/19 11:59 11:59 11:59 11:59 Intake Total 3402 / 3402 4439 / 4439 Output Total 600 / 600 600 / 600 Balance 2802 / 2802 3839 / 3839 Weight 205 lb 212 lb 210 lb 11 oz Narrative: Patient is alert, sitting up in a chair, very talkative and in good spirits. No JVD but her short neck and obesity make this a difficult exam. Lungs are better with only minimal rhonchi bilaterally. Heart rate regular, abdomen soft, obese and benign. No ankle swelling. Diminished pulses as previously noted but skin is warm and well-perfused in her feet. Islas catheter draining clear yellow urine. Urine output over the past shift has been 500 mL's. Assessment and Plan (1) Hypoxia Current visit: Yes Status: Acute Category: Medical Code(s): R09.02 - Hypoxemia Hypoxia improving. Off BiPAP, improving as pneumonia has improved (2) Bilateral pneumonia Current visit: Yes Status: Acute Category: Medical Code(s): J18.9 - Pneumonia, unspecified organism Continue broad-spectrum coverage. When discharged we will transition to cephalosporin oral therapy (3) CAD (coronary artery disease) Current visit: No Status: Chronic Qualifiers: Coronary Disease-Associated Artery/Lesion type: [place] artery [place] vs. transplanted heart: [place] heart Associated angina: without angina Qualified Code(s): I25.10 - Atherosclerotic heart disease of [place] coronary artery without angina pectoris Category: Medical Code(s): I25.10 - Atherosclerotic heart disease of [place] coronary artery without angina pectoris Stable disease. No evidence of recurrence (4) CKD (chronic kidney disease) Current visit: No Status: Chronic Qualifiers: Chronic kidney disease stage: stage 3 (moderate) Qualified Code(s): N18.3 - Chronic kidney disease, stage 3 (moderate) Category: Medical Code(s): N18.9 - Chronic kidney disease, unspecified Creatinine is slightly worsened given her episode of sepsis, hypotension, etc. This morning's level has seemed to plateau. Continue IV fluid support and follow creatinine tomorrow. (5) Diabetes Current visit: No Status: Chronic Qualifiers: Diabetes mellitus type: type 2 Diabetes mellitus detention insulin use: with detention use Diabetes mellitus complication status: with unspecified complications Category: Medical Code(s): E11.9 - Type 2 diabetes mellitus without complications Currently well controlled on sliding scale insulin (6) Diastolic dysfunction Current visit: No Status: Chronic Category: Medical Code(s): I51.89 - Other ill-defined heart diseases Fluid status is euvolemic. Watch carefully (7) PAD (peripheral artery disease) Current visit: No Status: Chronic Category: Medical Code(s): I73.9 - Peripheral vascular disease, unspecified Status post cath attempt to open vessels. Unsuccessful, follow clinically. (8) Severe sepsis Current visit: Yes Status: Acute Category: Medical Code(s): A41.9 - Sepsis, unspecified organism; R65.20 - Severe sepsis without septic shock Overall status improving.
--- NOTE | 2019-06-02 08:49 | Progress Note ---
Subjective Date: 06/02/19 Time: 08:00 Principal diagnosis: Hypoxia, sepsis Interval history: 68-year-old female admitted to facility on 05-31-19, after having a unilateral runoff. Unilateral runoff was unsuccessful. Patient was admitted with sepsis, pneumonia and possible aspiration. Patient is in stage IV renal failure and is under Dr. Humphreys's (Nephrology) care. Patient had been receiving IV fluids and antibiotics due to sepsis and pneumonia. Upon assessment this morning, Patient sitting up in bed. Patient denies chest pain, pressure or tightness. Patient had been weaned off BiPAP last night, and appears to be with no respiratory distress, on nasal cannula. Lung sounds noted is clear bilaterally. Patient noted with no swelling of the lower legs. Right groin (cath site) appears to be healing with no difficulty. Islas catheter intact and draining clear yellow urine. 24-hour urine output has only been 500 cc. Weight is down 2 pounds. Creatinine 3.59 and BUN 13 this am. Creatinine level seems to be at a plateau at this time. Vital signs are stable. Pt is receiving PT/OT due to weakness. Pt may benefit from being transferred to a skilled facility due to weakness. Discussed case with Dr. Narayan regarding care of this pt. Cardiology will continue to assist in the pt's care if needed. Pt will need to resume current medications including DAPT. Recommend pt to follow up with Cardiology in one week. Exam Vital signs and Labs for Last 24 Hours: Temp Pulse Resp BP Pulse Ox 98.2 F 75 18 114/51 L 95 06/02/19 04:00 06/02/19 04:00 06/02/19 04:00 06/02/19 04:00 06/02/19 04:00 Laboratory Results - last 24 hr 05/31/19 13:55: Activated Clotting Time 170 H* D 06/01/19 05:25: Total Counted 100, Neutrophils % (Manual) 90 H, Band Neutrophils % 2.0, Lymphocytes % (Manual) 5 L, Monocytes % (Manual) 2, Metamyelocytes % 1.0, Platelet Estimate Normal, RBC Morphology Not Reportable, Hypochromasia 3+ 06/01/19 11:24: POC Glucose 273 H 06/01/19 16:39: POC Glucose 265 H 06/01/19 17:50: Sodium 141, Potassium 3.9, Chloride 109 H, Carbon Dioxide 21, Anion Gap 14.9, BUN 37 H, Creatinine 3.55 H, Estimated Creat Clear 24, Estimated GFR 13 L*, Est GFR ( Amer) 16 L*, Glucose 244 H D, Calcium 7.4 L 06/01/19 20:06: POC Glucose 228 H 06/02/19 05:30: WBC 9.6 D, RBC 3.19 L, Hgb 8.2 L, Hct 28.7 L, MCV 90.0, MCH 25.5 L, MCHC 28.4 L, RDW 14.1, Plt Count 319, MPV 7.0 L, Neut % (Auto) 75.5, Lymph % (Auto) 12.5, [place] % (Auto) 3.8, Eos % (Auto) 7.8, Baso % (Auto) 0.4, Neut # (Auto) 7.2, Lymph # (Auto) 1.2, [place] # (Auto) 0.4, Eos # (Auto) 0.8 H, Baso # (Auto) 0.0 06/02/19 05:30: Sodium 142, Potassium 4.2, Chloride 111 H, Carbon Dioxide 21, Anion Gap 14.2, BUN 36 H, Creatinine 3.59 H, Estimated Creat Clear 23, Estimated GFR 13 L*, Est GFR ( Amer) 15 L*, Glucose 160 H D, Calcium 7.4 L, Total Bilirubin 0.2, AST 17, ALT 25 D, Alkaline Phosphatase 67, Total Protein 5.6 L, Albumin 2.4 L, Globulin 3.2, Albumin/Globulin Ratio 0.8 L 06/02/19 06:06: POC Glucose 166 H I & O for Last 24 hours: Intake & Output 05/30/19 05/31/19 06/01/19 06/02/19 23:59 23:59 23:59 23:59 Intake Total 1289 / 1289 4200 / 4200 2352 / 2352 Output Total 400 / 400 400 / 400 400 / 400 Balance 889 / 889 3800 / 3800 1951 / 1951 Weight 205 lb 5 oz 212 lb 210 lb 11 oz - Constitutional no acute distress, cooperative - *Routine HEENT Exam Head: Present: normocephalic ENT: Present: mucous membranes moist - *Routine Neck Exam Present: supple, full ROM, normal carotid upstroke. Absent: JVD, carotid bruit - Routine Chest/Breast/Axilla Exam Chest wall: Present: tenderness - *Routine Respiratory Exam Present: accessory muscle use, CTA bilaterally. Absent: rales, respiratory distress, wheezes, crackles - *Routine Cardiovascular Exam Present: RRR. Absent: bradycardia, tachycardia, irregular rhythm, JVD - *Routine Abdominal Exam Present: soft, normoactive bowel sounds. Absent: distended, guarding - *Routine Extremities Exam Present: full ROM, pulses intact, normal capillary refill. Absent: cyanosis, clubbing, edema - *Routine Skin Exam Present: intact, dry, warm, normal turgor. Absent: cyanosis, erythema, pallor - *Routine Neurological Exam Present: alert, oriented X3, CN II-XII intact, normal reflexes, abnormal gait, moving all extremities, normal speech - Routine Psychiatric Exam Present: normal affect, normal thought process, cooperative Progress Note: A&P (1) Hypoxia Status: Acute Current Visit: Yes (2) Bilateral pneumonia Status: Acute Current Visit: Yes (3) CAD (coronary artery disease) Status: Chronic Current Visit: No (4) CKD (chronic kidney disease) Status: Chronic Current Visit: No (5) Diabetes Status: Chronic Current Visit: No (6) Diastolic dysfunction Status: Chronic Current Visit: No (7) PAD (peripheral artery disease) Status: Chronic Current Visit: No (8) Severe sepsis Status: Acute Current Visit: Yes Assessment and Plan for All Diagnoses:: Plan: 1. Continue current medication regimen including DAPT. 2. Recommend to follow up with Cardiology clinic in one week or sooner if symptoms develop or become worse.
[2019-06-02 15:52] LABS: Hematocrit 32.7 % (37.0-47.0); Hemoglobin 9.5 g/dL (12.2-16.2)
[2019-06-03 06:34] LABS: Basophils # 0.1 K/mm3 (0-0.2); Basophils % 0.5 % (0.1-2.0); Eosinophils # 0.8 K/mm3 (0.0-0.4); Eosinophils % 8.5 % (0.1-12.0); Hematocrit 34.8 % (37.0-47.0); Hemoglobin 10.1 g/dL (12.2-16.2); Lymphocytes % 10.3 % (10-50); Mean Platelet Volume 7.2 fl (7.4-10.4); Monocytes # 0.4 K/mm3 (0.1-1.0); Monocytes % 4.6 % (1.7-9.3); Neutrophils % 76.1 % (37.0-80.0); Platelet Count 302 K/mm3 (142-424); Red Blood Count 3.91 M/mm3 (4.20-5.40); Red Cell Distribution Width 14.4 % (11.5-17.5); White Blood Count 9.3 K/mm3 (4.8-10.8)
[2019-06-03 07:46] LABS: Anion Gap 13.5 mEq/L (5-15); Calcium 7.8 mg/dL (8.5-10.1)
--- NOTE | 2019-06-03 08:27 | Discharge Summary ---
General - General Admission date:: 05/31/19 Discharge date: 06/03/19 HPI HPI: 68-year-old white female with peripheral arterial disease who was brought to the hospital today for elective outpatient peripheral arterial catheterization with stent placement in the lower extremities. Patient has a history of renal disease and was given 2 L of IV fluid before the procedure and nebulized Mucomyst for renal protection, which caused her to apparently cough and vomit a significant amount of liquid while on the cath table. Catheter procedure was done-please see cardiology notes, but after the procedure patient was significantly hypoxic with some low blood pressures noted. Placed on BiPAP therapy. Chest x-ray revealed the presence of bilateral upper lobe infiltrates consistent with pneumonitis and cardiology felt that she had "aspirated but did not need antibiotics." Patient was admitted to specialty care unit/ICU unit where I examined her. Of note in the intervening time she has dropped her blood pressure and [place]- Synephrine drip has been started. At the time I examined her she was more alert. Blood pressure was in the 112 range. Heart rate acceptable. She was able to respond to questions appropriately. Hospital Course Hospital Course: Patient was transferred to the intensive care unit on second floor. As noted, [place]io-Synephrine drip had been started by cardiology service. She met criteria for severe sepsis and appropriate fluid boluses and broad-spectrum antibiotics were given. Patient's lung x-rays and clinical exam are consistent with multilobar pneumonia. In talking with the cardiology/cath nurses, she did not appear to aspirate a significant amount and I believe that she had the pneumonia present on admission and simply decompensated from this while during the catheterization procedure. (Of note she has a history of walking pneumonia that has been present for several days before she becomes ill.) Patient responded well to BiPAP intervention overnight and the fluid boluses and antibiotics and the following morning was able to be transitioned off of BiPAP onto nasal cannula. She became more alert. Her kidney function worsened slightly with her baseline creatinine of 2.5 increasing to 3.5 over the next couple of days but responding this morning back down to 2.6 after IV fluids and increasing functional activity. PT and OT evaluated her and felt that she would benefit from a skilled care rehabilitation stay for 1 to 2 weeks and patient was agreeable to going to the [facility] for ongoing rehabilitation. Patient this morning looks great. She will be transitioned to p.o. antibiotics. Medications will be as discussed below. Follow-up will be per our custodial rounds. Please note that patient will need a CBC and basic metabolic panel on 06/05/2019. She will also need a follow-up nonportable chest x-ray done at [facility] on 06/09/2019 to follow-up infiltrate progression. Please note she will also need appointment made with Dr. Hathaway to evaluate her peripheral arterial disease in the next 2 weeks. Objective Vital signs: Temp Pulse Resp BP Pulse Ox 98.7 F 79 18 179/82 H 90 L 06/03/19 07:23 06/03/19 07:23 06/03/19 07:23 06/03/19 07:23 06/03/19 07:23 Narrative: Patient is pleasant, talkative, alert and oriented x3. Good oxygen saturations on 2 L of nasal cannula oxygen. Lungs have good air movement. Rhonchi in the upper lobes. Heart rate regular. Abdomen obese but soft. Extremities have 1+ ankle edema as normal. Neurologic exam intact. Cranial nerves are intact, oropharynx clear, no JVD. Results Labs on day of discharge: Labs from last 24 hours 06/03/19 06/03/19 06/03/19 06:00 06:00 05:41 WBC 9.3 RBC 3.91 L Hgb 10.1 L Hct 34.8 L MCV 89.0 MCH 25.8 L MCHC 29.0 L RDW 14.4 Plt Count 302 MPV 7.2 L Neut % (Auto) 76.1 Lymph % (Auto) 10.3 Sully % (Auto) 4.6 Eos % (Auto) 8.5 Baso % (Auto) 0.5 Neut # (Auto) 7.0 Lymph # (Auto) 1.0 Sully # (Auto) 0.4 Eos # (Auto) 0.8 H Baso # (Auto) 0.1 Sodium 143 Potassium 4.5 Chloride 110 H Carbon Dioxide 24 Anion Gap 13.5 BUN 33 H Creatinine 2.90 H Estimated Creat Clear 30 Estimated GFR 16 L* Est GFR ( Amer) 20 L D Glucose 173 H POC Glucose 174 H Calcium 7.8 L Blood Type Blood Type Confirm Antibody Screen Crossmatch ([facility]) 06/02/19 06/02/19 06/02/19 20:13 16:31 15:20 WBC RBC Hgb 9.5 L D Hct 32.7 L MCV MCH MCHC RDW Plt Count MPV Neut % (Auto) Lymph % (Auto) Sully % (Auto) Eos % (Auto) Baso % (Auto) Neut # (Auto) Lymph # (Auto) Sully # (Auto) Eos # (Auto) Baso # (Auto) Sodium Potassium Chloride Carbon Dioxide Anion Gap BUN Creatinine Estimated Creat Clear Estimated GFR Est GFR ( Amer) Glucose POC Glucose 236 H 204 H Calcium Blood Type Blood Type Confirm Antibody Screen Crossmatch ([facility]) 06/02/19 06/02/19 06/02/19 12:28 10:40 09:23 WBC RBC Hgb Hct MCV MCH MCHC RDW Plt Count MPV Neut % (Auto) Lymph % (Auto) Sully % (Auto) Eos % (Auto) Baso % (Auto) Neut # (Auto) Lymph # (Auto) Sully # (Auto) Eos # (Auto) Baso # (Auto) Sodium Potassium Chloride Carbon Dioxide Anion Gap BUN Creatinine Estimated Creat Clear Estimated GFR Est GFR ( Amer) Glucose POC Glucose 220 H Calcium Blood Type O Positive Blood Type Confirm O Positive Antibody Screen Negative Crossmatch ([facility]) See Detail Preliminary micro results at discharge 05/31/19 18:32 Blood Culture - Preliminary Blood NO GROWTH AFTER 48 HOURS DS: Diagnosis - Discharge Diagnosis (1) Hypoxia Status: Resolved (2) Bilateral pneumonia Status: Acute (3) CAD (coronary artery disease) Status: Chronic (4) CKD (chronic kidney disease) Status: Chronic (5) Diabetes Status: Chronic (6) Diastolic dysfunction Status: Chronic (7) PAD (peripheral artery disease) Status: Chronic (8) Severe sepsis Status: Resolved Discharge Plan - Patient Discharge Instructions ACTIVITY: Continue current activity DIET: continue same diet Patient Instructions: Peripheral Artery Disease, DI for Pneumonia -- Adult, DI for Hyperglycemia -- Adult, DI for Sepsis -- Adult, DI for Hypoxia - Follow up Plan Follow up with: Rachid Hathaway MD [Staff Physician] - 2 weeks Disposition: er [facility] Home Medications: Home Medications Medication Instructions Recorded Confirmed Type timolol maleate 0.5 % eye drops 1 drop OPHTHALMIC BID 30 Days 03/21/18 06/01/19 History cholecalciferol (vitamin D3) 2,000 2,000 unit PO DAILY 30 Days tab 02/20/19 06/01/19 History unit tablet insulin aspar prot-insulin aspart 30 unit SQ BID 28 Days #16.8 ml 02/20/19 06/01/19 History 100 unit/mL (70-30) subcutaneous pen insulin glargine (U-300) conc. 300 80 unit SUB-Q HS 30 Days #8.1 ml 02/20/19 06/01/19 History unit/mL (1.5 mL) subcutaneous pen Aspirin [Low Dose Aspirin EC] 81 mg PO DAILY 06/01/19 06/01/19 History Carvedilol [Carvedilol 25mg Tab] 25 mg PO BID 06/01/19 06/01/19 History Clopidogrel Bisulfate [Plavix 75mg 75 mg PO DAILY 06/01/19 06/01/19 History Tab] Hydralazine HCl 100 mg PO TID 06/01/19 06/01/19 History Isosorbide Mononitrate [Isosorbide 120 mg PO DAILY 06/01/19 06/01/19 History Mononitrate ER] Levothyroxine Sodium [Synthroid 100 mcg PO DAILY 06/01/19 06/01/19 History 100mcg (0.1mg) tablet] Rosuvastatin Calcium 40 mg PO DAILY 06/01/19 06/01/19 History raNITIdine HCl [Ranitidine HCl] 150 mg PO BID 06/01/19 06/01/19 History Cefdinir [Omnicef 300mg Capsule] 300 mg PO BID #10 cap 06/03/19 Rx Prescriptions/Medication Reconciliation: New Cefdinir [Omnicef 300mg Capsule] 300 mg PO BID #10 cap Continued timolol maleate 0.5 % eye drops 1 drop OPHTHALMIC BID 30 Days cholecalciferol (vitamin D3) 2,000 unit tablet 2,000 unit PO DAILY 30 Days tab insulin aspar prot-insulin aspart 100 unit/mL (70-30) subcutaneous pen 30 unit SQ BID 28 Days #16.8 ml insulin glargine (U-300) conc. 300 unit/mL (1.5 mL) subcutaneous pen 80 unit SUB-Q HS 30 Days #8.1 ml raNITIdine HCl [Ranitidine HCl] 150 mg PO BID Isosorbide Mononitrate [Isosorbide Mononitrate ER] 120 mg PO DAILY Hydralazine HCl 100 mg PO TID Clopidogrel Bisulfate [Plavix 75mg Tab] 75 mg PO DAILY Carvedilol [Carvedilol 25mg Tab] 25 mg PO BID Aspirin [Low Dose Aspirin EC] 81 mg PO DAILY Rosuvastatin Calcium 40 mg PO DAILY Levothyroxine Sodium [Synthroid 100mcg (0.1mg) tablet] 100 mcg PO DAILY
== END 2019-06-03 09:31 | DRG 871 ==
LOC: CATHLAB 07:51 → 2ND 15:12
PROVIDERS: ADMIT Internal Medicine Adolescent Medicine; ATTEND Internal Medicine Adolescent Medicine
DX: J18.9 Pneumonia, unspecified organism; Z98.51 Tubal ligation status; I70.92 Chronic total occlusion of artery of the extremities; Z82.49 Family history of ischemic heart disease and other diseases of the circulatory system; I50.32 Chronic diastolic (congestive) heart failure; Z79.4 Long term (current) use of insulin; Z79.02 Long term (current) use of antithrombotics/antiplatelets; Z82.3 Family history of stroke; I42.9 Cardiomyopathy, unspecified; Z83.3 Family history of diabetes mellitus; I13.0 Hypertensive heart and chronic kidney disease with heart failure and stage 1 through stage 4 chronic kidney disease, or unspecified chronic kidney disease; Z79.899 Other long term (current) drug therapy; Z79.82 Long term (current) use of aspirin; A41.9 Sepsis, unspecified organism; Z87.01 Personal history of pneumonia (recurrent); E89.0 Postprocedural hypothyroidism; R09.02 Hypoxemia; R65.20 Severe sepsis without septic shock; E11.51 Type 2 diabetes mellitus with diabetic peripheral angiopathy without gangrene; Z80.9 Family history of malignant neoplasm, unspecified; Z85.9 Personal history of malignant neoplasm, unspecified; N18.4 Chronic kidney disease, stage 4 (severe); I70.212 Atherosclerosis of native arteries of extremities with intermittent claudication, left leg; E78.5 Hyperlipidemia, unspecified; E11.22 Type 2 diabetes mellitus with diabetic chronic kidney disease; I25.10 Atherosclerotic heart disease of native coronary artery without angina pectoris; N17.9 Acute kidney failure, unspecified
CPT/HCPCS: 36415; 71010; 71045; 75710; 80048; 80053; 81001; 82803; 82962; 83605; 85007; 85014; 85018; 85025; 85048; 85049; 85347; 86850; 87040; 94660; 94761; 97116; 97162; 97165; 97535; 99152; 99153; C1725; C1766; C1769; C1894; J1644; J2405; J2720; P9016; Q9967

== ENCOUNTER → 2019-06-08 09:35 | Outpatient (CLI) | payer MEDICARE, MEDICAID, SELFPAY ==
--- NOTE | 2019-06-08 09:43 | XR_ITS ---
XR chest 2V HISTORY: ITS.REASON: ASPIRATION PNEUMONIA OF BOTH LUNGS, ORDERING PHYSICIAN: Miley Henriquez APRN PATIENT AGE: 68 years COMPARISON: 06/01/2019 FINDINGS: There is cardiomegaly with mild pulmonary venous congestion consistent with mild CHF. Increasing consolidation is present in the left lower lobe and lingula with small left effusion. Patchy infiltrate is also present in the right lower lobe not significantly changed. No acute bony findings. IMPRESSION: 1. Mild CHF. 2. Bilateral infiltrates slightly worse in the lingula and left lower lobe and unchanged on the right with developing small left pleural effusion
== END ==
PROVIDERS: PCP Internal Medicine Adolescent Medicine; Visit Provider Nurse Practitioner Family
DX: J69.0 Pneumonitis due to inhalation of food and vomit (principal)
CPT/HCPCS: 71046

== ENCOUNTER 2019-06-17 03:26 | Inpatient (IN) ==
[2019-06-17 04:06] LABS: Basophils % 0.6 % (0.1-2.0); Eosinophils # 0.1 K/mm3 (0.0-0.4); Eosinophils % 0.8 % (0.1-12.0); Hemoglobin 9.6 g/dL (12.2-16.2); Lymphocytes # 0.6 K/mm3 (0.7-4.5); Lymphocytes % 8.1 % (10-50); Mean Corpuscular Volume 90.1 fl (81-99); Mean Platelet Volume 7.3 fl (7.4-10.4); Monocytes # 0.3 K/mm3 (0.1-1.0); Monocytes % 4.3 % (1.7-9.3); Neutrophils % 86.2 % (37.0-80.0); Platelet Count 323 K/mm3 (142-424); Red Blood Count 3.67 M/mm3 (4.20-5.40); Red Cell Distribution Width 14.6 % (11.5-17.5)
[2019-06-17 04:18] LABS: ABG Base Excess 5.3 mmol/L (-2.4-2.3); ABG HCO3 32.3 mmhg (22.0-26.0); ABG Oxygen Saturation 87 % (90-100); ABG PH 7.27 mmol/L (7.35-7.45); ABG PO2 59.6 mmhg (80-100); ABG TCO2 34.5 mmhg (23-27)
[2019-06-17 04:18] LABS: Microscopic, Urine URINE MICROSCOPIC (MICROSCOPIC)
[2019-06-17 04:20] LABS: Appearance,Urine CLEAR (Clear); Bilirubin,Urine Negative (Negative); Blood, Urine Negative (Negative); Color,Urine YELLOW (Yellow); Glucose,Urine (UA) 3+ (Negative); Ketones,Urine Negative (Negative); Leukocyte Esterase,Urine Negative (Negative); Protein,Urine 2+ (Negative); Specific Gravity, Urine >= 1.030 (1.005-1.030); Urobilinogen,Urine 0.2 EU/dl (0.2)
[2019-06-17 04:20] LABS: Albumin Level 3.3 gm/dL (3.4-5.0); Albumin/Globulin Ratio 0.9 (1.1-1.8); Anion Gap 6.6 mEq/L (5-15); Bilirubin,Total 0.4 mg/dL (0.2-1.0); Calcium 8.9 mg/dL (8.5-10.1); Globulin 3.8 gm/dl (1.3-3.2); Total Protein,Serum 7.1 gm/dL (6.4-8.2)
[2019-06-17 04:21] LABS: Lymphocytes % 5 % (10-50); Monocytes % 1 % (2-9); Neutrophils % 91 % (42-76); Total Cells Counted 100
[2019-06-17 04:24] LABS: Amorphous Sediment,Urine Trace /lpf; WBC,Urine Occasional #/hpf (0-3)
[2019-06-17 04:32] LABS: Allen's Test Acceptable
[2019-06-17 04:33] LABS: ABG PCO2 72.2 mmhg (35.0-45.0)
--- NOTE | 2019-06-17 04:52 | Emergency Department Note ---
ED Disposition Clinical Impression: Respiratory failure with hypoxia and hypercapnia Qualifiers: Chronicity: acute Qualified Code(s): J96.01 - Acute respiratory failure with hypoxia; J96.02 - Acute respiratory failure with hypercapnia CKD (chronic kidney disease) Qualifiers: Chronic kidney disease stage: unspecified stage Qualified Code(s): N18.9 - Chronic kidney disease, unspecified Congestive heart failure Qualifiers: Heart failure type: diastolic Heart failure chronicity: acute on chronic Qualified Code(s): I50.33 - Acute on chronic diastolic (congestive) heart failure Disposition: Admitted as Observation Condition on Discharge: Serious Referrals: Provider,Referral, [Primary Care Provider] - - Critical Care Critical Care Time: No Attestation: On 06/17/19, the high probability of a clinically significant, sudden or life threatening deterioration of the following system(s) required my full and direct attention, intervention and personal management. The time I documented below is in addition to time spent performing reported procedures but includes the f ollowing listed in this critical care notation. Medical Decision Making - Medical Records Medical records reviewed: Yes: I reviewed the patient's medical records. - Akash Inquiry Pt receiving controlled substance: No Vital Signs: 06/17/19 03:29 06/17/19 03:59 06/17/19 04:27 Temperature 96.7 F L Temperature Source Rectal Rectal Pulse Rate [Right] 67 58 L Respiratory Rate 26 H Blood Pressure [Right Arm] 211/103 H 166/61 H Blood Pressure Mean [Right Arm] 139 96 Blood Pressure Source [Right Arm] Automatic Cuff Automatic Cuff Blood Pressure Position [Right Arm] Supine Supine 02 Sat by Pulse Oximetry 89 L 99 Oxygen Delivery Method Nasal Cannula BiPAP Oxygen Flow Rate (LPM) 4 06/17/19 04:57 06/17/19 05:00 06/17/19 06:00 Temperature 96.5 F L Temperature Source Rectal Pulse Rate [Right] 57 L 55 L 56 L Respiratory Rate Blood Pressure [Right Arm] 130/70 130/70 127/51 L Blood Pressure Mean [Right Arm] 90 90 76 Blood Pressure Source [Right Arm] Automatic Cuff Automatic Cuff Blood Pressure Position [Right Arm] Supine Supine 02 Sat by Pulse Oximetry 94 L 94 L 98 Oxygen Delivery Method BiPAP BiPAP BiPAP Oxygen Flow Rate (LPM) 60 60 - Lab Data Lab results reviewed: Yes: I reviewed the patient's lab results. Lab Results 06/17/19 03:41: Specimen Source Left radial, O2 % 3.5 lpm nc, ABG pH 7.27 L, ABG pCO2 72.2 H, ABG pO2 59.6 L, ABG HCO3 32.3 H, ABG Total CO2 34.5 H, ABG O2 S aturation 87 L*, ABG Base Excess 5.3 H, Will Test Acceptable 06/17/19 03:41: WBC 7.0, RBC 3.67 L, Hgb 9.6 L, Hct 33.0 L, MCV 90.1, MCH 26.1 L , MCHC 29.0 L, RDW 14.6, Plt Count 323, MPV 7.3 L, Neut % (Auto) 86.2 H, Lymph % (Auto) 8.1 L, D[place]y % (Auto) 4.3, Eos % (Auto) 0.8, Baso % (Auto) 0.6, Neut # (Auto) 6.0, Lymph # (Auto) 0.6 L, Dooly # (Auto) 0.3, Eos # (Auto) 0.1, Baso # (Auto) 0.0, Total Counted 100, Neutrophils % (Manual) 91 H, Band Neutrophils % 3.0, Lymphocytes % (Manual) 5 L, Monocytes % (Manual) 1 L, Platelet Estimate Normal, Poikilocytosis 1+ 06/17/19 03:41: Sodium 137, Potassium 4.6, Chloride 100, Carbon Dioxide 35 H, Anion Gap 6.6, BUN 49 H, Creatinine 2.45 H, Estimated Creat Clear 15, Estimated GFR 20 L, Est GFR ( Amer) 24 L, Glucose 242 H, Calcium 8.9, Total Bilirubin 0.4, AST 9 L, ALT 29, Alkaline Phosphatase 103, Total Protein 7.1 D, Albumin 3.3 L, Globulin 3.8 H, Albumin/Globulin Ratio 0.9 L 06/17/19 03:41: Lactate 0.5 06/17/19 03:41: B-Natriuretic Peptide 1320 H 06/17/19 03:47: Troponin I < 0.02 06/17/19 03:54: Urine Color Yellow, Urine Appearance Clear, Urine pH 6.0, Ur Specific Sylvester >= 1.030, Urine Protein 2+, Urine Glucose (UA) 3+, Urine Ketones Negative, Urine Blood Negative, Urine Nitrate Negative, Urine Bilirubin Negative, Urine Urobilinogen 0.2, Ur Leukocyte Esterase Negative, Urine WBC Occasional, Ur Squamous Epith Cells 3-5, Ur Renal Epithelial Cell 5-10, Amorphous Sediment Trace 06/17/19 05:20: Specimen Source Left brachial, O2 % 60%, ABG pH 7.22 L*, ABG pCO2 81.4 H, ABG pO2 91.3, ABG HCO3 32.6 H, ABG Total CO2 35.1 H, ABG O2 Saturation 95, ABG Base Excess 4.9 H, Will Test Non applicable, Vent Rate 18, Tidal Volume Bipap 22/7 Result diagrams: 06/17/19 03:41 06/17/19 03:41 Orders (Tests/Meds): ED MEDICATIONS Discontinued Medications Generic Name Dose Route Start Last Admin Trade Name Freq PRN Reason Stop Dose Admin Albuterol/Ipratropium 3 ml 06/17/19 03:41 06/17/19 04:06 Duoneb 3ml Neb IH 06/17/19 03:42 3 ml ONCE ONE Administration Furosemide 40 mg 06/17/19 05:42 06/17/19 05:48 Lasix 40mg/4ml Vial IV 06/17/19 05:43 40 mg ONCE ONE Administration Methylprednisolone Sodium Succinate 125 mg 06/17/19 03:41 06/17/19 04:06 Solu-Medrol 125mg/2ml Vial IV 06/17/19 03:42 125 mg ONCE ONE Administration Ondansetron HCl 4 mg 06/17/19 03:59 06/17/19 04:06 Zofran 4mg/2ml Vial IV 06/17/19 04:00 4 mg ONCE ONE Administration ORDERS Category Date Time Status Chest XR -- portable [XR chest portable] Stat Exams 06/17/19 03:39 Taken CRP [C-Reactive Protein] Stat Lab 06/17/19 06:10 Ordered Blood Culture Stat Micro 06/17/19 03:47 Ordered - Radiology Data #1 Image(s): Chest Image Reviewed: Yes I reviewed the patient's radiology image Preliminary Findings: Abnormal (chf) - ECG Data Tracing #1 Normal Sinus Rhythm: Yes Ischemic changes: non-specific ST-T wave changes - Physician Consults Physician Consulted: francisca Reason -: Admission Resp/SOB HPI - General Chief Complaint: Shortness of Breath/Dyspnea Stated Complaint: SOA Time Seen by Provider: 06/17/19 03:50 Mode of Arrival: EMS Source of Information: Patient, EMS, Medical Record Limitations: No Limitations Description of Symptoms (Recalled from ER Triage Doc. by RN): [place] having SOA for 3 days - History of Present Illness this wf was sent from [facility] for progressive sob over the last few days - she has finished abx - she has hx of cad/chf and pvd - pt unable to give hx sec to sob but prev [facility] d/c and card notes reviewed - MD Complaint: shortness of breath Onset (ago): day(s) Severity: severe Known history of: congestive heart failure, diabetes Associated symptoms: denies other symptoms Treatment prior to arrival: bronchodilator - Related Data Home oxygen amount: 2 liters Home Medications Medication Instructions Recorded Confirmed timolol maleate 0.5 % eye drops 1 drp OPHTHALMIC BID 30 Days 03/21/18 06/17/19 cholecalciferol (vitamin D3) 2,000 2,000 unit PO DAILY 30 Days tab 02/20/19 06/17/19 unit tablet insulin glargine (U-300) conc. 300 60 unit SUB-Q HS 30 Days #8.1 ml 02/20/19 06/17/19 unit/mL (1.5 mL) subcutaneous pen Aspirin [Low Dose Aspirin EC] 81 mg PO HS 06/01/19 06/17/19 Carvedilol [Carvedilol 25mg Tab] 25 mg PO BID 06/01/19 06/17/19 Hydralazine HCl 100 mg PO TID 06/01/19 06/17/19 Isosorbide Mononitrate [Isosorbide 120 mg PO DAILY 06/01/19 06/17/19 Mononitrate ER] Levothyroxine Sodium [Synthroid 100 mcg PO DAILY 06/01/19 06/17/19 100mcg (0.1mg) tablet] Rosuvastatin Calcium 40 mg PO HS 06/01/19 06/17/19 raNITIdine HCl [Ranitidine HCl] 150 mg PO DAILY 06/01/19 06/17/19 Acetaminophen [Acetaminophen Extra 500 mg PO Q4H 06/17/19 06/17/19 Strength] Clopidogrel Bisulfate [Plavix 75mg 75 mg PO DAILY 06/17/19 06/17/19 Tab] Insulin Lispro [Humalog] 100 unit SQ ACHS 06/17/19 06/17/19 Magnesium Hydroxide [Milk of 400 mg PO BID 06/17/19 06/17/19 Magnesia] Nystatin [Nystatin Cr 100,000 100,000 unit TOPICAL BID 06/17/19 06/17/19 Units/GM 30GM] Saccharomyces Boulardii [Florastor] 250 mg PO DAILY 06/17/19 06/17/19 Allergies Allergy/AdvReac Type Severity Reaction Status Date / Time No Known Allergies Allergy Verified 05/31/19 15:57 [facility] History - Hepatitis A Screen Drug use history?: No High risk sexual behaviors?: No History of sexually transmitted infection?: No Currently employed?: No Childcare worker?: No Do you have indoor plumbing?: Yes Do you have electricity?: Yes Attestation statement:: This patient has been screened for Hepatitis A risk factors. I have reviewed the patient's past medical history: Yes Medical History: Reports:: Cancer, Cardiomyopathy, Diabetes Mellitus Type 2, Hyperlipidemia, Hypertension, Peripheral Artery Disease, Renal Disease Denies:: Diabetes Mellitus Type 1, MRSA, Seizures Other Medical History: Reports: Hypothyroidism Comment: kidney failure Other Surgeries: Yes: No Previous Surgery, Angiogram, Cardiac Catheterization, Thyroidectomy, Tubal Ligation, Other Amputation: No Fractures: No - Social History Smoking Status: Never smoker Alcohol Intake: never Alcohol Intake Frequency:: other Substance Use Type: denies use Occupational Status: retired Housing: house Household Members: none Family Hx:: Cancer, Diabetes, Heart Attack, Hyperlipidemia, Hypertension, Stroke Comment: Mother- of [place]@45 ROS Obtained: Yes unobtainable due to mental condition Physical Exam - General General appearance: alert - Head Head exam: normocephalic - Eye Eye exam: Present: PERRL, EOMI - ENT ENT exam: Present: mucous membranes dry - Neck Neck exam: Present: trachea midline - Respiratory Respiratory exam: Present: other (dec bs bilat ) - Cardiovascular Cardiovascular exam: Present: regular rate, systolic murmur, +S4 - Abdominal Exam Abdominal exam: Present: soft - Extremities Exam Extremities exam: Present: pedal edema - Neurological Exam Neurological exam: Present: alert, CN II-XII intact - Skin Skin exam: Absent: rash
[2019-06-17 05:35] LABS: ABG Base Excess 4.9 mmol/L (-2.4-2.3); ABG HCO3 32.6 mmhg (22.0-26.0); ABG Oxygen Saturation 95 % (90-100); ABG PH 7.22 mmol/L (7.35-7.45); ABG PO2 91.3 mmhg (80-100); ABG TCO2 35.1 mmhg (23-27)
[2019-06-17 05:53] LABS: Allen's Test Non Applicable; Oxygen 60% %; Tidal Volume BIPAP 22/7
[2019-06-17 05:54] LABS: ABG PCO2 81.4 mmhg (35.0-45.0)
--- NOTE | 2019-06-17 08:05 | History & Physical Report ---
*Admission Date: 06/17/19 *Chief complaint: SOA, Confusion *History of present illness: Ms. Thompson is a 68-year-old female with history of CHF, diabetes, renal insufficiency who presented from a [facility] due to worsening shortness of breath and somnolence over the past 2 to 3 days. Unable to obtain history from her due to fatigue, history obtained from chart review. Upon presentation to the ER patient was found to have hypercarbic respiratory failure with marked respiratory acidosis. Additionally she was found to be volume overloaded with elevated BNP. CRP normal giving low suspicion for an infection even in the setting of her chest film showing bilateral effusion/opacification. Admitted to medicine for further management of her volume status and respiratory failure. [facility] History I have reviewed the patient's past medical history: Yes (From charts) Medical History: Reports:: Cancer, Cardiomyopathy, Diabetes Mellitus Type 2, Hyperlipidemia, Hypertension, Peripheral Artery Disease, Renal Disease Denies:: Diabetes Mellitus Type 1, MRSA, Seizures *Have you ever received a pneumonia vaccine?: No *Have you received a flu vaccine this season?: No Other Medical History: Reports: Hypothyroidism Other Surgeries: Yes: No Previous Surgery, Angiogram, Cardiac Catheterization, Thyroidectomy, Tubal Ligation, Other Amputation: No Fractures: No - *Social History Smoking Status: Never smoker Alcohol Intake: never Alcohol Intake Frequency:: other Substance Use Type: denies use *Occupational Status:: retired Housing: house Household Members: none *Travel in the last 8 weeks: None Family Hx:: Cancer, Diabetes, Heart Attack, Hyperlipidemia, Hypertension, Stroke Review of Systems - Review of Systems Review of systems:: unable to obtain Meds Home Medications Medication Instructions Recorded Confirmed Type timolol maleate 0.5 % eye drops 1 drp OPHTHALMIC BID 30 Days 03/21/18 06/17/19 History cholecalciferol (vitamin D3) 2,000 2,000 unit PO DAILY 30 Days tab 02/20/19 06/17/19 History unit tablet insulin glargine (U-300) conc. 300 60 unit SQ HS 30 Days #8.1 ml 02/20/19 06/17/19 History unit/mL (1.5 mL) subcutaneous pen Aspirin [Low Dose Aspirin EC] 81 mg PO HS 06/01/19 06/17/19 History Carvedilol [Carvedilol 25mg Tab] 25 mg PO BID 06/01/19 06/17/19 History Hydralazine HCl 100 mg PO TID 06/01/19 06/17/19 History Isosorbide Mononitrate [Isosorbide 120 mg PO DAILY 06/01/19 06/17/19 History Mononitrate ER] Levothyroxine Sodium [Synthroid 100 mcg PO DAILY 06/01/19 06/17/19 History 100mcg (0.1mg) tablet] Rosuvastatin Calcium 40 mg PO HS 06/01/19 06/17/19 History raNITIdine HCl [Ranitidine HCl] 150 mg PO DAILY 06/01/19 06/17/19 History Acetaminophen [Acetaminophen Extra 500 mg PO Q4HP PRN 06/17/19 06/17/19 History Strength] Clopidogrel Bisulfate [Plavix 75mg 75 mg PO DAILY 06/17/19 06/17/19 History Tab] Insulin Lispro [Humalog] 0 unit SQ ACHS 06/17/19 06/17/19 History Magnesium Hydroxide [Milk of 400 mg PO BID 06/17/19 06/17/19 History Magnesia] Nystatin [Nystatin Cr 100,000 100,000 unit TOPICAL BID 06/17/19 06/17/19 History Units/GM 30GM] Saccharomyces Boulardii [Florastor] 250 mg PO DAILY 06/17/19 06/17/19 History Allergies Allergy/AdvReac Type Severity Reaction Status Date / Time No Known Allergies Allergy Verified 05/31/19 15:57 Exam Vital signs and Labs for Last 24 Hours: Temp Pulse Resp BP Pulse Ox 96.7 F L 59 L 18 156/78 H 98 06/17/19 06:47 06/17/19 06:47 06/17/19 06:47 06/17/19 06:47 06/17/19 06:00 Laboratory Results - last 24 hr 06/17/19 03:41: Specimen Source Left radial, O2 % 3.5 lpm nc, ABG pH 7.27 L, ABG pCO2 72.2 H, ABG pO2 59.6 L, ABG HCO3 32.3 H, ABG Total CO2 34.5 H, ABG O2 Saturation 87 L*, ABG Base Excess 5.3 H, Will Test Acceptable 06/17/19 03:41: WBC 7.0, RBC 3.67 L, Hgb 9.6 L, Hct 33.0 L, MCV 90.1, MCH 26.1 L , MCHC 29.0 L, RDW 14.6, Plt Count 323, MPV 7.3 L, Neut % (Auto) 86.2 H, Lymph % (Auto) 8.1 L, [place] % (Auto) 4.3, Eos % (Auto) 0.8, Baso % (Auto) 0.6, Neut # (Auto) 6.0, Lymph # (Auto) 0.6 L, [place] # (Auto) 0.3, Eos # (Auto) 0.1, Baso # (Auto) 0.0, Total Counted 100, Neutrophils % (Manual) 91 H, Band Neutrophils % 3.0, Lymphocytes % (Manual) 5 L, Monocytes % (Manual) 1 L, Platelet Estimate Normal, Poikilocytosis 1+ 06/17/19 03:41: Sodium 137, Potassium 4.6, Chloride 100, Carbon Dioxide 35 H, Anion Gap 6.6, BUN 49 H, Creatinine 2.45 H, Estimated Creat Clear 15, Estimated GFR 20 L, Est GFR ( Amer) 24 L, Glucose 242 H, Calcium 8.9, Total Bilirubin 0.4, AST 9 L, ALT 29, Alkaline Phosphatase 103, Total Protein 7.1 D, Albumin 3.3 L, Globulin 3.8 H, Albumin/Globulin Ratio 0.9 L 06/17/19 03:41: Lactate 0.5 06/17/19 03:41: B-Natriuretic Peptide 1320 H 06/17/19 03:47: Troponin I < 0.02 06/17/19 03:47: C-Reactive Protein < 0.2 06/17/19 03:54: Urine Color Yellow, Urine Appearance Clear, Urine pH 6.0, Ur Specific [place] >= 1.030, Urine Protein 2+, Urine Glucose (UA) 3+, Urine Ketones Negative, Urine Blood Negative, Urine Nitrate Negative, Urine Bilirubin Negative, Urine Urobilinogen 0.2, Ur Leukocyte Esterase Negative, Urine WBC Occasional, Ur Squamous Epith Cells 3-5, Ur Renal Epithelial Cell 5-10, Amorphous Sediment Trace 06/17/19 05:20: Specimen Source Left brachial, O2 % 60%, ABG pH 7.22 L*, ABG pCO2 81.4 H, ABG pO2 91.3, ABG HCO3 32.6 H, ABG Total CO2 35.1 H, ABG O2 Saturation 95, ABG Base Excess 4.9 H, Will Test Non applicable, Vent Rate 18, Tidal Volume Bipap 22/7 I & O for Last 24 hours: Intake & Output 06/14/19 06/15/19 06/16/19 06/17/19 23:59 23:59 23:59 23:59 Weight 92.986 kg - Constitutional mild distress, morbidly obese - *Routine HEENT Exam Head: Present: atraumatic, cushingoid faces Eye: Present: EOMI, PERRL ENT: Present: mucous membranes moist - *Routine Neck Exam Present: supple, full ROM, JVD - *Routine Respiratory Exam Comments: Poor aeration her due to body habitus however clear in upper lobes. On BiPAP. Coarse bilateral lower lobes - *Routine Cardiovascular Exam Present: RRR, murmur - *Routine Abdominal Exam Present: soft, normoactive bowel sounds - *Routine Rectal Exam Patient deferred: visual exam - *Routine Exam Patient deferred: external exam - *Routine Extremities Exam Present: edema (3+ to thigh). Absent: cyanosis, clubbing - *Routine Skin Exam Present: intact. Absent: cyanosis, erythema - *Routine Neurological Exam Opens eyes to voice and painful stimuli, alert to person. Somnolent Assessment and Plan (1) Acute on chronic diastolic CHF (congestive heart failure), NYHA class 3 Current visit: Yes Status: Acute Category: Medical Code(s): I50.33 - Acute on chronic diastolic (congestive) heart failure Presentation consistent with exacerbation of CHF. Will aggressively diuresis due to edema and respiratory failure. Goal -1 to 2 L over the next 24 hours. Monitor with strict I's and O's. (2) Respiratory failure with hypoxia and hypercapnia Current visit: Yes Status: Acute Qualifiers: Chronicity: acute Qualified Code(s): J96.01 - Acute respiratory failure with hypoxia; J96.02 - Acute respiratory failure with hypercapnia Category: Medical Code(s): J96.91 - Respiratory failure, unspecified with hypoxia; J96.92 - Respiratory failure, unspecified with hypercapnia Hypercarbic respiratory failure with respiratory acidosis. Monitor with blood gas 2 hours after getting to the floor and making BiPAP adjustments. Patient appropriate for BiPAP as she is able to cough and protect airway, does respond to verbal stimuli, and can swallow. Will monitor closely as her tenuous condition may necessitate intubation if things worsen. (3) Edema Current visit: No Status: Acute Qualifiers: Edema type: localized Qualified Code(s): R60.0 - Localized edema Category: Medical Code(s): R60.9 - Edema, unspecified Secondary to heart failure and volume overload, diuresis as per above (4) Diabetes Current visit: No Status: Chronic Qualifiers: Diabetes mellitus type: type 2 Diabetes mellitus exterminator termite insulin use: with chcf use Diabetes mellitus complication status: with unspecified complications Category: Medical Code(s): E11.9 - Type 2 diabetes mellitus without complications Continue home Lantus and bolus insulin. Fingerstick before meals and at bedtime. (5) HLD (hyperlipidemia) Current visit: No Status: Chronic Qualifiers: Hyperlipidemia type: mixed hyperlipidemia Qualified Code(s): E78.2 - Mixed hyperlipidemia Category: Medical Code(s): E78.5 - Hyperlipidemia, unspecified Continue home regimen (6) HTN (hypertension) Current visit: No Status: Chronic Qualifiers: Hypertension type: essential hypertension Qualified Code(s): I10 - Essential (primary) hypertension Category: Medical Code(s): I10 - Essential (primary) hypertension Continue home regimen (7) LAW (renal artery stenosis) Current visit: No Status: Chronic Category: Medical Code(s): I70.1 - Atherosclerosis of renal artery (8) Morbid obesity Current visit: Yes Status: Acute Category: Medical Code(s): E66.01 - Morbid (severe) obesity due to excess calories Complicates all aspects of her care - Assessment and plan all Dx Assessment and Plan for all problems:: At this time Ms. Thompson is a 68-year-old female with respiratory failure and CHF exacerbation. Diuresing, providing ventilatory and oxygenation support with BiPAP, monitoring for improvement. We will repeat labs this afternoon to monitor kidney function. Condition serious, prognosis guarded. Continues to r equire inpatient management
--- NOTE | 2019-06-17 08:17 | Pharmacy Consult Notes ---
[facility] Pharmacy VTE Monitoring - Patient Demographics Admission date: 06/17/19 Report Date: 06/17/19 Time: 08:16 Allergies/Adverse Reactions: Patient Allergies No Known Allergies Allergy (Verified 05/31/19 15:57) Height: 1.5 m Weight: 92.986 kg Patient Problems: Current Active Problems (Updated 06/17/19 @ 08:05 by Mark Juan MD) Respiratory failure with hypoxia and hypercapnia (Acute) Congestive heart failure (Acute) CKD (chronic kidney disease) (Chronic) - VTE Risk Labs: VTE Related Lab Results Hgb 9.6 g/dL (12.2-16.2) L 06/17/19 03:41 Hct 33.0 % (37.0-47.0) L 06/17/19 03:41 Plt Count 323 K/mm3 (142-424) 06/17/19 03:41 BUN 49 mg/dL (7-18) H 06/17/19 03:41 Creatinine 2.45 mg/dL (0.55-1.02) H 06/17/19 03:41 Estimated Creat Clear 15 mL/min (50-200) 06/17/19 03:41 - Prophylaxis VTE Prophylaxis Ordered?: Yes Types of VTE Prophylaxis: TEDS Knee High Location of Applied Device: Bilateral Lower Extremeties - VTE Diagnosis Confirmed Treatment or plan recommended: Continue Current Treatment
[2019-06-17 09:19] LABS: ABG Base Excess 7.4 mmol/L (-2.4-2.3); ABG HCO3 34.8 mmhg (22.0-26.0); ABG Oxygen Saturation 97 % (90-100); ABG PH 7.24 mmol/L (7.35-7.45); ABG PO2 104.4 mmhg (80-100); ABG TCO2 37.3 mmhg (23-27)
[2019-06-17 09:28] LABS: Allen's Test Non Applicable; Oxygen 60% %
[2019-06-17 10:43] LABS: ABG Base Excess 3.9 mmol/L (-2.4-2.3); ABG HCO3 31.4 mmhg (22.0-26.0); ABG Oxygen Saturation 97 % (90-100); ABG PH 7.23 mmol/L (7.35-7.45); ABG PO2 110.9 mmhg (80-100); ABG TCO2 33.7 mmhg (23-27); Oxygen 60 %; Tidal Volume bipap 22/10
[2019-06-17 10:44] LABS: ABG PCO2 75.9 mmhg (35.0-45.0); Allen's Test Patient Unable
[2019-06-17 18:35] LABS: ABG Base Excess 5.2 mmol/L (-2.4-2.3); ABG Oxygen Saturation 97 % (90-100); ABG PH 7.34 mmol/L (7.35-7.45); ABG PO2 104.2 mmhg (80-100); ABG TCO2 32.8 mmhg (23-27)
[2019-06-17 18:36] LABS: Allen's Test Y; Oxygen 60 %; PEEP 10
[2019-06-17 18:37] LABS: ABG PCO2 59.1 mmhg (35.0-45.0)
[2019-06-17 22:38] LABS: Anion Gap 11.1 mEq/L (5-15); Calcium 8.7 mg/dL (8.5-10.1)
[2019-06-18 05:39] LABS: Basophils % 0.2 % (0.1-2.0); Eosinophils % 0.1 % (0.1-12.0); Hemoglobin 8.3 g/dL (12.2-16.2); Lymphocytes # 0.7 K/mm3 (0.7-4.5); Lymphocytes % 10.2 % (10-50); Mean Corpuscular Volume 89.5 fl (81-99); Mean Platelet Volume 7.6 fl (7.4-10.4); Monocytes # 0.4 K/mm3 (0.1-1.0); Monocytes % 6.5 % (1.7-9.3); Neutrophils # 5.4 K/mm3 (1.8-7.8); Neutrophils % 82.9 % (37.0-80.0); Platelet Count 287 K/mm3 (142-424); Red Blood Count 3.09 M/mm3 (4.20-5.40); Red Cell Distribution Width 14.6 % (11.5-17.5); White Blood Count 6.5 K/mm3 (4.8-10.8)
[2019-06-18 05:40] LABS: Hematocrit 27.7 % (37.0-47.0)
[2019-06-18 05:49] LABS: Anion Gap 10.2 mEq/L (5-15); Calcium 8.5 mg/dL (8.5-10.1)
--- NOTE | 2019-06-18 10:08 | Progress Note ---
Internal Medicine - PN: Subj *Date: 06/18/19 *Time: 10:18 Interval history: Ms. Thompson has done quite well over the past 24 hours since admission. Was placed on Bumex drip last night to facilitate diuresis. This morning has had some improvement in her urine output. Tolerated the BiPAP well while asleep and has had resolution of her hypercarbia and respiratory failure. Is much more talkative and alert today sitting up in a bedside chair caring on appropriate conversation. Blood pressure remained stable. Kidney function still very tenuous. Denies any chest pain; shortness of breath improving; denies nausea vomiting or diarrhea, complains of legs feeling very heavy. Getting ready to take a shower when seen on exam today Exam Vital signs and Labs for Last 24 Hours: Temp Pulse Resp BP Pulse Ox 99.2 F 67 18 145/56 H 89 L 06/18/19 08:00 06/18/19 06:00 06/18/19 06:00 06/18/19 06:00 06/18/19 08:00 Laboratory Results - last 24 hr 06/17/19 03:54: Urine Color Yellow, Urine Appearance Clear, Urine pH 6.0, Ur Specific [place] >= 1.030, Urine Protein 2+, Urine Glucose (UA) 3+, Urine Ketones Negative, Urine Blood Negative, Urine Nitrate Negative, Urine Bilirubin Negative, Urine Urobilinogen 0.2, Ur Leukocyte Esterase Negative, Urine WBC Occasional, Ur Squamous Epith Cells 3-5, Ur Renal Epithelial Cell 5-10, Amorphous Sediment Trace 06/17/19 10:30: Specimen Source Left radial, O2 % 60, ABG pH 7.23 L*, ABG pCO2 75.9 H, ABG pO2 110.9 H, ABG HCO3 31.4 H, ABG Total CO2 33.7 H, ABG O2 Saturation 97, ABG Base Excess 3.9 H, Will Test Patient unable, Vent Rate 18, Tidal Volume bipap /06/17/19 13:30: POC Glucose 263 H 06/17/19 16:32: POC Glucose 257 H 06/17/19 17:14: POC Glucose 244 H 06/17/19 18:34: Specimen Source R/r, O2 % 60, ABG pH 7.34 L, ABG pCO2 59.1 H, ABG pO2 104.2 H, ABG HCO3 31.0 H, ABG Total CO2 32.8 H, ABG O2 Saturation 97, ABG Base Excess 5.2 H, Will Test Y, Vent Rate 18, PEEP 10 06/17/19 20:46: POC Glucose 259 H 06/17/19 22:20: Sodium 138, Potassium 5.1, Chloride 102, Carbon Dioxide 30, Anion Gap 11.1, BUN 66 H D, Creatinine 3.06 H D, Estimated Creat Clear 12, Estimated GFR 15 L*, Est GFR ( Amer) 18 L* D, Glucose 234 H, Calcium 8.7 06/18/19 05:20: WBC 6.5, RBC 3.09 L, Hgb 8.3 L, Hct 27.7 L, MCV 89.5, MCH 26.9 L , MCHC 30.0 L, RDW 14.6, Plt Count 287, MPV 7.6, Neut % (Auto) 82.9 H, Lymph % (Auto) 10.2, [place] % (Auto) 6.5, Eos % (Auto) 0.1, Baso % (Auto) 0.2, Neut # (Auto) 5.4, Lymph # (Auto) 0.7, [place] # (Auto) 0.4, Eos # (Auto) 0.0, Baso # (Auto) 0.0 06/18/19 05:20: Sodium 143, Potassium 4.2, Chloride 103, Carbon Dioxide 34 H, Anion Gap 10.2, BUN 61 H, Creatinine 3.12 H, Estimated Creat Clear 12, Estimated GFR 15 L*, Est GFR ( Amer) 18 L*, Glucose 151 H D, Calcium 8.5 06/18/19 06:28: POC Glucose 130 H I & O for Last 24 hours: Intake & Output 06/15/19 06/16/19 06/17/19 06/18/19 23:59 23:59 23:59 23:59 Intake Total 360 / 360 547 / 547 Output Total 700 / 780 560 / 560 Balance -340 / -420 -13 / -13 Weight 100.499 kg 102.965 kg Microbiology Reports for the Last 24 Hours: Microbiology 06/17/19 03:41 Blood Blood Culture - Preliminary Gram Positive Cocci Narrative: - Constitutional No acute distress on nasal cannula oxygen, in bedside chair on exam, talkative and appropriate, morbidly obese - *Routine HEENT Exam Head: Present: atraumatic, cushingoid faces Eye: Present: EOMI, PERRL ENT: Present: mucous membranes moist - *Routine Neck Exam Present: supple, full ROM, JVD - *Routine Respiratory Exam Comments: Interval improvement in aeration bilaterally with crackles in posterior lung brown, most prominent in bases but still present in mid lung brown, upper lobes clear with good air movement. No rhonchi or wheeze - *Routine Cardiovascular Exam Present: RRR, murmur - *Routine Abdominal Exam Present: soft, normoactive bowel sounds - *Routine Extremities Exam Present: Interval improvement in edema (2+ to knee). Absent: cyanosis, clubbing - *Routine Skin Exam Present: intact. Absent: cyanosis, erythema - *Routine Neurological Exam Alert and oriented x3. Conversation appropriate. Denies any focal deficits. Sitting up in bedside chair, strength in all 4 extremities 5/5 Assessment and Plan (1) Acute on chronic diastolic CHF (congestive heart failure), NYHA class 3 Current visit: Yes Status: Acute Category: Medical Code(s): I50.33 - Acute on chronic diastolic (congestive) heart failure (2) Respiratory failure with hypoxia and hypercapnia Current visit: Yes Status: Acute Qualifiers: Chronicity: acute Qualified Code(s): J96.01 - Acute respiratory failure with hypoxia; J96.02 - Acute respiratory failure with hypercapnia Category: Medical Code(s): J96.91 - Respiratory failure, unspecified with hypoxia; J96.92 - Respiratory failure, unspecified with hypercapnia PCO2 on admission greater than 55 (has ranged 75-83 and first 12 hours of admission). Patient needs volume ventilation to treat respiratory failure high er pressures on bilevel Pap device will not adequately treat patient. We will pursue trilogy device. (3) Edema Current visit: No Status: Acute Qualifiers: Edema type: localized Qualified Code(s): R60.0 - Localized edema Category: Medical Code(s): R60.9 - Edema, unspecified (4) Diabetes Current visit: No Status: Chronic Qualifiers: Diabetes mellitus type: type 2 Diabetes mellitus terminal make up operator insulin use: with terminal make up operator use Diabetes mellitus complication status: with unspecified complications Category: Medical Code(s): E11.9 - Type 2 diabetes mellitus without complications (5) HLD (hyperlipidemia) Current visit: No Status: Chronic Qualifiers: Hyperlipidemia type: mixed hyperlipidemia Qualified Code(s): E78.2 - Mixed hyperlipidemia Category: Medical Code(s): E78.5 - Hyperlipidemia, unspecified (6) HTN (hypertension) Current visit: No Status: Chronic Qualifiers: Hypertension type: essential hypertension Qualified Code(s): I10 - Essential (primary) hypertension Category: Medical Code(s): I10 - Essential (primary) hypertension (7) LAW (renal artery stenosis) Current visit: No Status: Chronic Category: Medical Code(s): I70.1 - Atherosclerosis of renal artery (8) Morbid obesity Current visit: Yes Status: Acute Category: Medical Code(s): E66.01 - Morbid (severe) obesity due to excess calories - Assessment and plan all Dx Assessment and Plan for all problems:: 68-year-old female who presented with multiorgan system failure consisting of respiratory failure, exacerbation of CHF, and end-stage/CKD 4. Responded well to BiPAP overnight. Is finally starting to respond with diuresis on Bumex drip. Significant improvement in mentation and orientation. At this time we will plan to transition to a trilogy device. Additionally will finish diuretic drip through this evening. Will take a break until the morning at which time will initiate Bumex 4 mg p.o. and assess for response tomorrow. Patient fluid restricted to 1000 cc a day of both oral and IV combined. Extensive discussion today about patient's multiorgan failure with her respiratory disease, kidney failure, heart failure. Patient seems to be taken off guard by all of this news not realizing how bad her conditions were. Has seen a zinc miner blasting and discussed the possibility of dialysis but nothing more than that at this time. Patient is interested in dialysis if she is a candidate. Pending improvement clinically during hospitalization would benefit from referral as an inpatient and possible transfer if fluid status/volume overload and/or uremia worsen however if things improve, would recommend outpatient consult as soon as possible to discuss placement of a fistula in preparation for dialysis given how significant her volume overload was on admission. Condition remains serious, prognosis guarded. Continues to require inpatient management
[2019-06-18 18:17] LABS: Anion Gap 9.8 mEq/L (5-15); Calcium 8.8 mg/dL (8.5-10.1)
[2019-06-19 05:35] LABS: Basophils % 0.4 % (0.1-2.0); Eosinophils # 0.1 K/mm3 (0.0-0.4); Hemoglobin 8.4 g/dL (12.2-16.2); Lymphocytes # 1.1 K/mm3 (0.7-4.5); Lymphocytes % 15.5 % (10-50); Mean Corpuscular HGB Conc 28.9 g/dL (31.8-35.4); Mean Platelet Volume 8.7 fl (7.4-10.4); Monocytes # 0.5 K/mm3 (0.1-1.0); Monocytes % 7.3 % (1.7-9.3); Neutrophils # 5.4 K/mm3 (1.8-7.8); Neutrophils % 74.8 % (37.0-80.0); Platelet Count 296 K/mm3 (142-424); Red Blood Count 3.29 M/mm3 (4.20-5.40); Red Cell Distribution Width 14.9 % (11.5-17.5); White Blood Count 7.2 K/mm3 (4.8-10.8)
[2019-06-19 05:38] LABS: Hematocrit 29.2 % (37.0-47.0)
[2019-06-19 05:45] LABS: Anion Gap 8.6 mEq/L (5-15)
--- NOTE | 2019-06-19 08:49 | Progress Note ---
Internal Medicine - PN: Subj *Date: 06/19/19 *Time: 08:45 Interval history: Patient adapted fairly well to the [facility] respiratory system last night after some adjustments by respiratory therapy. This morning she is on nasal cannula oxygen, and states "it is a bright new day." It also happens to be the patient's birthday and she is very excited that she is feeling better this morning. She is eating well and continues to have a fairly brisk diuresis compared to yesterday even after Bumex drip was stopped yesterday. Exam Vital signs and Labs for Last 24 Hours: Temp Pulse Resp BP Pulse Ox 99.0 F 67 22 145/47 H 100 06/19/19 07:52 06/19/19 07:52 06/19/19 07:52 06/19/19 07:52 06/19/19 07:52 Laboratory Results - last 24 hr 06/18/19 11:11: POC Glucose 199 H 06/18/19 16:00: POC Glucose 262 H 06/18/19 18:00: Sodium 143, Potassium 3.8, Chloride 102, Carbon Dioxide 35 H, Anion Gap 9.8, BUN 69 H, Creatinine 3.27 H, Estimated Creat Clear 12, Estimated GFR 14 L*, Est GFR ( Amer) 17 L*, Glucose 252 H D, Calcium 8.8 06/18/19 21:15: POC Glucose 191 H 06/19/19 05:25: WBC 7.2, RBC 3.29 L, Hgb 8.4 L, Hct 29.2 L, MCV 89.0, MCH 25.7 L , MCHC 28.9 L, RDW 14.9, Plt Count 296, MPV 8.7, Neut % (Auto) 74.8, Lymph % (Auto) 15.5, [place] % (Auto) 7.3, Eos % (Auto) 2.0, Baso % (Auto) 0.4, Neut # (Auto) 5.4, Lymph # (Auto) 1.1, [place] # (Auto) 0.5, Eos # (Auto) 0.1, Baso # (Auto) 0.0 06/19/19 05:25: Sodium 147 H, Potassium 3.6, Chloride 104, Carbon Dioxide 38 H, Anion Gap 8.6, BUN 68 H, Creatinine 3.12 H, Estimated Creat Clear 12, Estimated GFR 15 L*, Est GFR ( Amer) 18 L*, Glucose 116 H D, Calcium 9.0 06/19/19 06:02: POC Glucose 114 H I & O for Last 24 hours: Intake & Output 06/16/19 06/17/19 06/18/19 06/19/19 11:59 11:59 11:59 11:59 Intake Total 907 / 907 1202 / 1202 Output Total 225 / 225 1035 / 1035 4300 / 4300 Balance -225 / -225 -128 / -128 -3098 / -3098 Weight 221 lb 9 oz 227 lb 213 lb 3 oz Microbiology Reports for the Last 24 Hours: Microbiology 06/17/19 03:41 Blood Blood Culture - Preliminary Staphylococcus epidermidis Narrative: Patient is alert. Oriented x3. Very pleasant. Oropharynx clear. No JVD, although her obesity and pickwickian shape limits the accuracy of her chest, cardiac and neck exam. Lungs have diminished air movement in the bases but symmetrically. Heart rate regular, no murmurs auscultated. Abdomen is obese but soft. Extremities have trace ankle edema. No sacral edema. Assessment and Plan (1) Acute on chronic diastolic CHF (congestive heart failure), NYHA class 3 Current visit: Yes Status: Acute Category: Medical Code(s): I50.33 - Acute on chronic diastolic (congestive) heart failure (2) Respiratory failure with hypoxia and hypercapnia Current visit: Yes Status: Acute Qualifiers: Chronicity: acute Qualified Code(s): J96.01 - Acute respiratory failure with hypoxia; J96.02 - Acute respiratory failure with hypercapnia Category: Medical Code(s): J96.91 - Respiratory failure, unspecified with hypoxia; J96.92 - Respiratory failure, unspecified with hypercapnia (3) Edema Current visit: No Status: Acute Qualifiers: Edema type: localized Qualified Code(s): R60.0 - Localized edema Category: Medical Code(s): R60.9 - Edema, unspecified (4) Diabetes Current visit: No Status: Chronic Qualifiers: Diabetes mellitus type: type 2 Diabetes mellitus roasterman insulin use: with fdc use Diabetes mellitus complication status: with unspecified complications Category: Medical Code(s): E11.9 - Type 2 diabetes mellitus without complications (5) HLD (hyperlipidemia) Current visit: No Status: Chronic Qualifiers: Hyperlipidemia type: mixed hyperlipidemia Qualified Code(s): E78.2 - Mixed hyperlipidemia Category: Medical Code(s): E78.5 - Hyperlipidemia, unspecified (6) HTN (hypertension) Current visit: No Status: Chronic Qualifiers: Hypertension type: essential hypertension Qualified Code(s): I10 - Essential (primary) hypertension Category: Medical Code(s): I10 - Essential (primary) hypertension (7) LAW (renal artery stenosis) Current visit: No Status: Chronic Category: Medical Code(s): I70.1 - Atherosclerosis of renal artery (8) Morbid obesity Current visit: Yes Status: Acute Category: Medical Code(s): E66.01 - Morbid (severe) obesity due to excess calories - Assessment and plan all Dx Assessment and Plan for all problems:: Overall patient seems to be improving. We will make sure she has renal follow- up, p.o. Bumex today. Trilogy system for nocturnal hypoxia/ventilatory issues again tonight. If this works well we will consider transfer back to [place] tomorrow.
[2019-06-20 06:22] LABS: Basophils % 0.7 % (0.1-2.0); Eosinophils # 0.3 K/mm3 (0.0-0.4); Eosinophils % 5.2 % (0.1-12.0); Hematocrit 29.1 % (37.0-47.0); Hemoglobin 8.6 g/dL (12.2-16.2); Lymphocytes # 1.1 K/mm3 (0.7-4.5); Lymphocytes % 17.6 % (10-50); Mean Corpuscular HGB Conc 29.5 g/dL (31.8-35.4); Mean Corpuscular Volume 91.5 fl (81-99); Mean Platelet Volume 7.5 fl (7.4-10.4); Monocytes # 0.4 K/mm3 (0.1-1.0); Monocytes % 6.4 % (1.7-9.3); Neutrophils # 4.2 K/mm3 (1.8-7.8); Neutrophils % 70.1 % (37.0-80.0); Platelet Count 328 K/mm3 (142-424); Red Blood Count 3.18 M/mm3 (4.20-5.40)
[2019-06-20 06:28] LABS: Bilirubin,Total 0.3 mg/dL (0.2-1.0); Calcium 9.1 mg/dL (8.5-10.1)
[2019-06-20 06:29] LABS: Albumin Level 2.5 gm/dL (3.4-5.0); Albumin/Globulin Ratio 0.8 (1.1-1.8); Total Protein,Serum 5.5 gm/dL (6.4-8.2)
--- NOTE | 2019-06-20 11:03 | Discharge Summary ---
General - General Admission date:: 06/17/19 Discharge date: 06/20/19 HPI HPI: Ms. Thompson is a 68-year-old female with history of CHF, diabetes, renal insufficiency who presented from a [facility] due to worsening shortness of breath and somnolence over the past 2 to 3 days. Unable to obtain history from her due to fatigue, history obtained from chart review. Upon presentation to the ER patient was found to have hypercarbic respiratory failure with marked respiratory acidosis. Additionally she was found to be volume overloaded with elevated BNP. CRP normal giving low suspicion for an infection even in the setting of her chest film showing bilateral effusion/opacification. Admitted to medicine for further management of her volume status and respiratory failure. Hospital Course Hospital Course: Ms. Thompson is a 69-year-old female admitted for multiple organ system failure including kidney failure, respiratory failure, CHF exacerbation. She was started on BiPAP at admission due to hypercarbia and acidosis. Gradually improved over the first 24 hours with significant improvement clinically, going from obtunded to sitting in bedside chair having a conversation the following day. Difficulty with diuresis due to her kidney failure however transition to aggressive diuresis with a Bumex drip finally showing some results with improvement in her edema, and gradual diuresis with -6 L fluid balance during admission. Patient's creatinine starting to come down on day of discharge back to her [facility] with continued regimen for oral Bumex daily. Given level of kidney dysfunction, patient has at a minimum CKD 4 but is borderline end-stage and needs assessment and evaluation for dialysis. Planning to follow-up tomorrow with her senior drafter to discuss the subject. At this time she is wearing a trilogy device at night to give her the equivalent of ventilatory support while at the [facility]. Plan to discharge back to the [facility] for continued therapy. Overall significant clinical improvement given condition with which she presented. At this time patient denies shortness of breath, chest pain, nausea or vomiting, diarrhea. Reports decreased sensation of heaviness in her legs after diuresis. Discharge back to [facility] with continue daily diuresis and assessment by nephrology as an outpatient. Stable for discharge Objective Vital signs: Temp Pulse Resp BP Pulse Ox 99.3 F 64 20 176/75 H 95 06/20/19 08:00 06/20/19 08:00 06/20/19 08:00 06/20/19 08:00 06/20/19 08:16 Narrative: - Constitutional No acute distress on BiPAP in bed, talkative and appropriate, morbidly obese - *Routine HEENT Exam Head: Present: atraumatic, cushingoid faces Eye: Present: EOMI, PERRL ENT: Present: mucous membranes moist - *Routine Neck Exam Present: supple, full ROM, JVD - *Routine Respiratory Exam Comments: Interval improvement in aeration bilaterally with crackles in posterior lung brown, most prominent in bases but still present in mid lung brown, upper lobes clear with good air movement. No rhonchi or wheeze - *Routine Cardiovascular Exam Present: RRR, murmur - *Routine Abdominal Exam Present: soft, normoactive bowel sounds - *Routine Extremities Exam Present: Interval improvement in edema (1+ to knee). Absent: cyanosis, clubbing, significant wrinkling in skin - *Routine Skin Exam Present: intact. Absent: cyanosis, erythema - *Routine Neurological Exam Alert and oriented x3. Conversation appropriate. Denies any focal deficits. Sitting up in bedside chair, strength in all 4 extremities 5/5 Results Labs on day of discharge: Labs from last 24 hours 06/20/19 06/20/19 06/20/19 05:39 05:39 05:38 WBC 6.0 RBC 3.18 L Hgb 8.6 L Hct 29.1 L MCV 91.5 MCH 26.9 L MCHC 29.5 L RDW 15.0 Plt Count 328 MPV 7.5 Neut % (Auto) 70.1 Lymph % (Auto) 17.6 [place] % (Auto) 6.4 Eos % (Auto) 5.2 Baso % (Auto) 0.7 Neut # (Auto) 4.2 Lymph # (Auto) 1.1 [place] # (Auto) 0.4 Eos # (Auto) 0.3 Baso # (Auto) 0.0 Sodium 148 H Potassium 3.0 L Chloride 105 Carbon Dioxide 41 H* Anion Gap 5.0 BUN 64 H Creatinine 2.91 H Estimated Creat Clear 13 Estimated GFR 16 L* Est GFR ( Amer) 20 L Glucose 78 POC Glucose 84 Calcium 9.1 Total Bilirubin 0.3 AST 9 L ALT 19 Alkaline Phosphatase 70 Total Protein 5.5 L Albumin 2.5 L Globulin 3.0 Albumin/Globulin Ratio 0.8 L 06/19/19 06/19/19 06/19/19 21:17 16:29 11:25 WBC RBC Hgb Hct MCV MCH MCHC RDW Plt Count MPV Neut % (Auto) Lymph % (Auto) [place] % (Auto) Eos % (Auto) Baso % (Auto) Neut # (Auto) Lymph # (Auto) [place] # (Auto) Eos # (Auto) Baso # (Auto) Sodium Potassium Chloride Carbon Dioxide Anion Gap BUN Creatinine Estimated Creat Clear Estimated GFR Est GFR ( Amer) Glucose POC Glucose 144 H 202 H 183 H Calcium Total Bilirubin AST ALT Alkaline Phosphatase Total Protein Albumin Globulin Albumin/Globulin Ratio Preliminary micro results at discharge 06/18/19 05:20 Blood Culture - Preliminary Blood NO GROWTH AFTER 48 HOURS 06/17/19 09:36 Blood Culture - Preliminary Blood NO GROWTH AFTER 48 HOURS 06/17/19 03:41 Blood Culture - Preliminary Blood Staphylococcus epidermidis DS: Diagnosis - Discharge Diagnosis (1) Acute on chronic diastolic CHF (congestive heart failure), NYHA class 3 Status: Chronic (2) Respiratory failure with hypoxia and hypercapnia Status: Resolved (3) Edema Status: Resolved (4) Diabetes Status: Chronic (5) HLD (hyperlipidemia) Status: Chronic (6) HTN (hypertension) Status: Chronic (7) LAW (renal artery stenosis) Status: Chronic (8) Morbid obesity Status: Acute (9) CKD (chronic kidney disease) stage 4, GFR 15-29 ml/min Status: Chronic Discharge Plan - Patient Discharge Instructions ACTIVITY: Continue current activity DIET: continue same diet Patient Instructions: DI for Shortness of Breath, DI for Respiratory Failure - Follow up Plan Follow up with: Fortunato Humphreys [Consulting Physician] - 06/21/19 2:20 pm (Specialty Clinic @ [facility]) Disposition: Xfer [facility] Home Medications: Home Medications Medication Instructions Recorded Confirmed Type timolol maleate 0.5 % eye drops 1 drp OPHTHALMIC BID 30 Days 03/21/18 06/17/19 History cholecalciferol (vitamin D3) 2,000 2,000 unit PO DAILY 30 Days tab 02/20/19 06/17/19 History unit tablet insulin glargine (U-300) conc. 300 60 unit SQ HS 30 Days #8.1 ml 02/20/19 06/17/19 History unit/mL (1.5 mL) subcutaneous pen Aspirin [Low Dose Aspirin EC] 81 mg PO HS 06/01/19 06/17/19 History Carvedilol [Carvedilol 25mg Tab] 25 mg PO BID 06/01/19 06/17/19 History Hydralazine HCl 100 mg PO TID 06/01/19 06/17/19 History Isosorbide Mononitrate [Isosorbide 120 mg PO DAILY 06/01/19 06/17/19 History Mononitrate ER] Levothyroxine Sodium [Synthroid 100 mcg PO DAILY 06/01/19 06/17/19 History 100mcg (0.1mg) tablet] Rosuvastatin Calcium 40 mg PO HS 06/01/19 06/17/19 History raNITIdine HCl [Ranitidine HCl] 150 mg PO DAILY 06/01/19 06/17/19 History Acetaminophen [Acetaminophen Extra 500 mg PO Q4HP PRN 06/17/19 06/17/19 History Strength] Clopidogrel Bisulfate [Plavix 75mg 75 mg PO DAILY 06/17/19 06/17/19 History Tab] Insulin Lispro [Humalog] 0 unit SQ ACHS 06/17/19 06/17/19 History Magnesium Hydroxide [Milk of 400 mg PO BID 06/17/19 06/17/19 History Magnesia] Nystatin [Nystatin Cr 100,000 100,000 unit TOPICAL BID 06/17/19 06/17/19 History Units/GM 30GM] Saccharomyces Boulardii [Florastor] 250 mg PO DAILY 06/17/19 06/17/19 History Prescriptions/Medication Reconciliation: New Bumetanide [Bumex 1mg tablet] 4 mg PO BID tablet Continued timolol maleate 0.5 % eye drops 1 drp OPHTHALMIC BID 30 Days cholecalciferol (vitamin D3) 2,000 unit tablet 2,000 unit PO DAILY 30 Days tab insulin glargine (U-300) conc. 300 unit/mL (1.5 mL) subcutaneous pen 60 unit SQ HS 30 Days #8.1 ml raNITIdine HCl [Ranitidine HCl] 150 mg PO DAILY Isosorbide Mononitrate [Isosorbide Mononitrate ER] 120 mg PO DAILY Hydralazine HCl 100 mg PO TID Carvedilol [Carvedilol 25mg Tab] 25 mg PO BID Aspirin [Low Dose Aspirin EC] 81 mg PO HS Insulin Lispro [Humalog] 0 unit SQ ACHS Nystatin [Nystatin Cr 100,000 Units/GM 30GM] 100,000 unit TOPICAL BID Magnesium Hydroxide [Milk of Magnesia] 400 mg PO BID Saccharomyces Boulardii [Florastor] 250 mg PO DAILY Clopidogrel Bisulfate [Plavix 75mg Tab] 75 mg PO DAILY Rosuvastatin Calcium 40 mg PO HS Levothyroxine Sodium [Synthroid 100mcg (0.1mg) tablet] 100 mcg PO DAILY Acetaminophen [Acetaminophen Extra Strength] 500 mg PO Q4HP PRN PRN Reason: As Needed For Fever Or Pain
== END 2019-06-20 15:20 | DRG 291 ==
LOC: ER 03:26 → 2ND 03:26 → OBSVTOIN 06:59 → 2ND 13:15
PROVIDERS: ADMIT Internal Medicine Adolescent Medicine; ATTEND Internal Medicine Adolescent Medicine
CPT/HCPCS: J2405

== ENCOUNTER → 2019-06-21 13:34 | Outpatient (POV) | payer MEDICARE, MEDICAID, SELFPAY | PROVIDERS: Visit Provider Internal Medicine Nephrology | DX: Z00.00 Encounter for general adult medical examination without abnormal findings (principal) ==

== ENCOUNTER → 2019-07-19 09:53 | Outpatient (CLI) | payer MEDICARE, MEDICAID, SELFPAY | PROVIDERS: PCP Internal Medicine Adolescent Medicine; Visit Provider Transplant Surgery | DX: R06.02 Shortness of breath (principal); I50.33 Acute on chronic diastolic (congestive) heart failure | CPT/HCPCS: 93306 ==

== ENCOUNTER → 2019-10-03 11:23 | Outpatient (CLI) | payer MEDICARE, MEDICAID, SELFPAY ==
[2019-10-03 11:27] LABS: Microscopic, Urine URINE MICROSCOPIC (MICROSCOPIC)
[2019-10-03 11:56] LABS: Basophils # 0.1 K/mm3 (0-0.2); Basophils % 1.2 % (0.1-2.0); Eosinophils # 0.7 K/mm3 (0.0-0.4); Eosinophils % 10.7 % (0.1-12.0); Hematocrit 35.7 % (37.0-47.0); Hemoglobin 10.5 g/dL (12.2-16.2); Lymphocytes # 1.4 K/mm3 (0.7-4.5); Lymphocytes % 23.3 % (10-50); Mean Corpuscular HGB Conc 29.4 g/dL (31.8-35.4); Mean Corpuscular Hemoglobin 26.3 pg (27.0-31.2); Mean Corpuscular Volume 89.4 fl (81-99); Mean Platelet Volume 7.6 fl (7.4-10.4); Monocytes # 0.4 K/mm3 (0.1-1.0); Monocytes % 6.8 % (1.7-9.3); Neutrophils # 3.5 K/mm3 (1.8-7.8); Neutrophils % 58.1 % (37.0-80.0); Platelet Count 291 K/mm3 (142-424); Red Blood Count 3.99 M/mm3 (4.20-5.40); Red Cell Distribution Width 14.5 % (11.5-17.5); White Blood Count 6.1 K/mm3 (4.8-10.8)
[2019-10-03 12:08] LABS: Appearance,Urine CLEAR (Clear); Bilirubin,Urine Negative (Negative); Blood, Urine Negative (Negative); Color,Urine YELLOW (Yellow); Glucose,Urine (UA) Negative (Negative); Ketones,Urine Negative (Negative); Leukocyte Esterase,Urine Negative (Negative); Nitrate,Urine Negative (Negative); Protein,Urine 1+ (Negative); Urobilinogen,Urine 0.2 EU/dl (0.2)
[2019-10-03 12:21] LABS: Creatinine,Urine Random 26 mg/dL (20-320); Total Protein,Urine Random 57.5 mg/dL (0.0-11.9)
[2019-10-03 12:30] LABS: Amorphous Sediment,Urine 1+ /lpf; Coarse Granular Casts,Urine Occasional #/lpf (0); Hyaline Casts,Urine Occasional #/lpf (0); RBC,Urine Occasional #/hpf (0-3)
[2019-10-03 13:27] LABS: Albumin Level 3.5 gm/dL (3.4-5.0); Blood Urea Nitrogen 40 mg/dL (7-18); Calcium 9.8 mg/dL (8.5-10.1); Carbon Dioxide 34 mmol/L (21.0-32.0); Chloride 102 mmol/L (98-107); Creatinine,Serum 2.84 mg/dL (0.55-1.02); Estimated Glomerular Filt Rate 17 ml/min (>60); GFR (African American) 20 ML/MIN (>60); Glucose 112 mg/dL (74-106); Phosphorous 4.3 mg/dL (2.4-4.9); Sodium 140 mmol/L (136-145)
== END ==
PROVIDERS: Visit Provider Internal Medicine Nephrology
DX: N18.4 Chronic kidney disease, stage 4 (severe) (principal)
CPT/HCPCS: 36415; 80069; 81001; 82570; 84155; 85025

== ENCOUNTER → 2019-10-09 12:52 | Outpatient (POV) | payer MEDICARE, MEDICAID, SELFPAY | PROVIDERS: Visit Provider Internal Medicine Nephrology | DX: Z00.00 Encounter for general adult medical examination without abnormal findings (principal) ==

== ENCOUNTER → 2019-11-02 13:43 | Outpatient (CLI) | payer MEDICARE, MEDICAID, SELFPAY ==
[2019-11-02 15:40] LABS: Calcium 9.8 mg/dL (8.5-10.1); Carbon Dioxide 31 mmol/L (21.0-32.0); Creatinine,Serum 2.91 mg/dL (0.55-1.02); Estimated Glomerular Filt Rate 16 ml/min (>60); GFR (African American) 20 ML/MIN (>60); Sodium 143 mmol/L (136-145)
[2019-11-02 15:49] LABS: Anion Gap 14.1 mEq/L (5-15); Blood Urea Nitrogen 53 mg/dL (7-18); Chloride 102 mmol/L (98-107); Free T4 (Free Thyroxine) 0.99 ng/dl (0.76-1.46); Glucose 185 mg/dL (74-106); Potassium 4.1 mmoL/L (3.5-5.1); Thyroid Stimulating Hormone 0.33 uIU/ml (0.358-3.740)
[2019-11-02 18:46] LABS: Hemoglobin A1C 9.2 % (0.0-7.0)
== END ==
PROVIDERS: Visit Provider Nurse Practitioner Family
DX: E11.8 Type 2 diabetes mellitus with unspecified complications (principal); E03.9 Hypothyroidism, unspecified; N18.4 Chronic kidney disease, stage 4 (severe); Z79.4 Long term (current) use of insulin
CPT/HCPCS: 36415; 80048; 83036; 84439; 84443

== ENCOUNTER 2021-04-04 16:48 | Emergency (ER) | payer MEDICARE, MEDICAID, SELFPAY ==
[2021-04-04 17:09] VITALS: BP 227/76; PULSE 80; RESP 18; TEMP 36.9; O2SAT 98; BMI 42.6
[2021-04-04 17:34] VITALS: PULSE 65; O2SAT 99
--- NOTE | 2021-04-04 17:49 | HMH.EDGENADL ---
ED Disposition Clinical Impression: Cellulitis of great toe, right Subungual hematoma of toe of right foot Qualifiers: Encounter type: initial encounter Qualified Code(s): S90.221A - Contusion of right lesser toe(s) with damage to nail, initial encounter Disposition: Home, Self-Care Condition on Discharge: Good Instructions: Cellulitis Prescriptions: cephALEXin [Cephalexin 500mg Tab] 500 mg PO QID 10 Days #40 tab Transmission Status: Pending to [id number] Doxycycline Hyclate [Doxycycline 100mg Capsule] 100 mg PO Q12 #20 cap Transmission Status: Pending to [id number] Referrals: Miley Henriquez APRN [Primary Care Provider] - Tanna Montgomery DPM [Staff Physician] - - Critical Care Critical Care Time: No Attestation: On 04/04/21, the high probability of a clinically significant, sudden or life threatening deterioration of the following system(s) required my full and direct attention, intervention and personal management. The time I documented below is in addition to time spent performing reported procedures but includes the following listed in this critical care notation. Medical Decision Making - Medical Records Medical records reviewed: Yes: I reviewed the patient's medical records. - Akash Inquiry Pt receiving controlled substance: No Vital Signs: 04/04/21 17:09 04/04/21 17:34 Temperature 98.5 F Temperature Source Oral Pulse Rate 65 Pulse Rate [Left Radial] 80 Respiratory Rate 18 Blood Pressure [Right Arm] 227/76 H Blood Pressure Mean [Right Arm] 126 Blood Pressure Source [Right Arm] Automatic Cuff Blood Pressure Position [Right Arm] Sitting 02 Sat by Pulse Oximetry 98 99 Oxygen Delivery Method Room Air Medical Decision Narrative: Is a 70-year-old female presented to the emergency department with some erythema in the right great toe. Findings are consistent with a subungual hematoma. She also has some mild cellulitis. There is no evidence of fluctuance. Afebrile. No signs of sepsis. Patient be placed on a short course antibiotics. She needs to follow-up with her primary pc tech. Given strict return precautions. Verbalized understanding. General Adult HPI - General Chief complaint: Skin/Abscess/Foreign Body Stated complaint: infected toes on both feet Time Seen by Provider: 04/04/21 17:15 Mode of Arrival: Ambulatory Limitations: No Limitations Description of Symptoms (Recalled from ER Triage Doc. by RN): PT states that bilateral greater toes are red and bruise like looking for 2 months. She is concerned with her right greater toe has redness around the nail and had some drainage since Wednesday. - History of Present Illness HPI narrative: 70-year-old female presented to the emergency department for evaluation of her right great toe. The patient states that about 2 weeks ago she had some minor trauma where she accidentally kicked the side of her bed. Since then she has been having some swelling of her toe. She feels like her toenails falling off. Has had some redness near the base of the nailbed. She is not endorsing any trauma or discharge. She just got concerned about the area of erythema. She denies any other injuries. She is not having any chest pain shortness of breath. Abdominal pain or vomiting. Headache or change in vision. - Related Data Home Medications Medication Instructions Recorded Confirmed timolol maleate 0.5 % eye drops 1 drp OPHTHALMIC BID 30 Days 03/21/18 06/17/19 cholecalciferol (vitamin D3) 50 2,000 unit PO DAILY 30 Days tab 02/20/19 06/17/19 mcg (2,000 unit) tablet insulin glargine U-300 conc 300 60 unit SQ HS 30 Days #8.1 ml 02/20/19 06/17/19 unit/mL (1.5 mL) subcutaneous pen Hydralazine HCl 100 mg PO TID 06/01/19 06/17/19 Levothyroxine Sodium [Synthroid 100 mcg PO DAILY 06/01/19 06/17/19 100mcg (0.1mg) tablet] Acetaminophen [Acetaminophen Extra 500 mg PO Q4HP PRN 06/17/19 06/17/19 Strength] Insulin
[2021-04-04 17:59] VITALS: BP 164/62
[2021-04-04 18:04] VITALS: BP 164/78; PULSE 84; RESP 16; TEMP 36.8; O2SAT 98
== END 2021-04-04 18:05 | disposition home or self-care (01) ==
PROVIDERS: Emergency Provider Emergency Medicine; PCP Nurse Practitioner Family
DX: L03.031 Cellulitis of right toe (principal); S90.221A Contusion of right lesser toe(s) with damage to nail, initial encounter; E03.9 Hypothyroidism, unspecified; E78.5 Hyperlipidemia, unspecified; I10 Essential (primary) hypertension; E11.9 Type 2 diabetes mellitus without complications; Z79.4 Long term (current) use of insulin; Z79.899 Other long term (current) drug therapy
CPT/HCPCS: 99281

== ENCOUNTER → 2022-01-08 08:42 | Outpatient (CLI) | payer MEDICARE, MEDICAID, SELFPAY ==
[2022-01-08 09:37] LABS: Basophils # 0.1 K/mm3 (0-0.2); Eosinophils # 0.5 K/mm3 (0.0-0.4); Eosinophils % 6.5 % (0.1-12.0); Hematocrit 36.2 % (37.0-47.0); Hemoglobin 11.5 g/dL (12.2-16.2); Lymphocytes # 1.2 K/mm3 (0.7-4.5); Lymphocytes % 18.2 % (10-50); Mean Corpuscular HGB Conc 31.7 g/dL (31.8-35.4); Mean Corpuscular Hemoglobin 26.4 pg (27.0-31.2); Mean Corpuscular Volume 83.2 fl (81-99); Mean Platelet Volume 7.1 fl (7.4-10.4); Monocytes # 0.3 K/mm3 (0.1-1.0); Monocytes % 4.7 % (1.7-9.3); Neutrophils # 4.7 K/mm3 (1.8-7.8); Neutrophils % 69.5 % (37.0-80.0); Platelet Count 320 K/mm3 (142-424); Red Blood Count 4.36 M/mm3 (4.20-5.40); Red Cell Distribution Width 13.9 % (11.5-17.5); White Blood Count 6.8 K/mm3 (4.8-10.8)
[2022-01-08 09:51] LABS: Microscopic, Urine URINE MICROSCOPIC (MICROSCOPIC)
[2022-01-08 10:15] LABS: Albumin Level 3.9 g/dl (3.5-5.0); Anion Gap 11.9 mEq/L (5-15); Blood Urea Nitrogen 52 mg/dl (7-17); Calcium 10.1 mg/dl (8.4-10.2); Carbon Dioxide 31 mmol/L (22.0-30.0); Chloride 100 mmol/L (98-107); Estimated Glomerular Filt Rate 19 ml/min (>60); GFR (African American) 23 ML/MIN (>60); Glucose 172 mg/dl (74-100); Phosphorous 3.6 mg/dl (2.5-4.5); Potassium 3.9 mmoL/L (3.5-5.1); Sodium 139 mmol/L (136-145)
[2022-01-08 10:27] LABS: Intact Parathyroid Hormone 40.5 pg/mL (7.5-53.5)
[2022-01-08 10:33] LABS: 25-OH Vitamin D, Total 37.1 ng/mL (30-100)
[2022-01-08 10:50] LABS: Appearance,Urine CLEAR (Clear); Bilirubin,Urine Negative (Negative); Blood, Urine TRACE-I (Negative); Color,Urine YELLOW (Yellow); Glucose,Urine (UA) 3+ (Negative); Ketones,Urine Negative (Negative); Leukocyte Esterase,Urine Negative (Negative); Nitrate,Urine Negative (Negative); Protein,Urine 2+ (Negative); Specific Gravity, Urine 1.025 (1.005-1.030); Urobilinogen,Urine 0.2 EU/dl (0.2)
[2022-01-08 11:05] LABS: Creatinine,Urine Random 88 mg/dL (Not Estab.)
[2022-01-08 11:21] LABS: Bacteria,Urine 4+ /lpf
[2022-01-08 11:22] LABS: Amorphous Sediment,Urine 1+ /lpf; White Blood Cell Casts,Urine Occasional #/lpf (0)
[2022-01-08 11:23] LABS: Mucus,Urine 1+ /lpf
== END ==
PROVIDERS: PCP Nurse Practitioner Family; Visit Provider Internal Medicine Nephrology
DX: N18.4 Chronic kidney disease, stage 4 (severe) (principal); E55.9 Vitamin D deficiency, unspecified; R82.90 Unspecified abnormal findings in urine; B96.20 Unspecified Escherichia coli [E. coli] as the cause of diseases classified elsewhere
CPT/HCPCS: 36415; 80069; 81001; 82306; 82570; 83970; 84155; 85025; 87086; 87088; 87186

== ENCOUNTER 2022-02-18 11:36 | Emergency (ER) | payer MEDICARE, MEDICAID, SELFPAY ==
[2022-02-18] VITALS (13 sets, daily range): BP systolic 169–244; BP diastolic 69–122; PULSE 90–110; RESP 18–20; TEMP 36.8; O2SAT 93–99; BMI 43.0
--- NOTE | 2022-02-18 12:01 | CT_ITS ---
FINAL REPORT CLINICAL HISTORY: Fall, hit head, NECK PAIN AFTER FALL FINDINGS: Axial CT images of the cervical spine were obtained without contrast. Sagittal and coronal reformatted images were also obtained. This study was performed with techniques to keep radiation doses as low as reasonably achievable (ALARA). Individualized dose reduction techniques using automated exposure control or adjustment of mA and/or kV according to the patient's size were employed. There is no acute fracture. There are mild and moderate degenerative changes with multilevel osteophytes. No significant canal stenosis is seen. There are multifocal ground-glass opacities in the lung apices which are nonspecific. IMPRESSION: No fracture or acute bony abnormality identified. Degenerative changes. Multifocal ground-glass opacities in the lung apices, nonspecific. Reviewed, Interpreted and Dictated by Stef Gautam III, MD Transcribed by Yuko Regan Authenticated by Stef Gautam III, MD on 02/18/2022 02:59:[address] [facility]
--- NOTE | 2022-02-18 12:01 | CT_ITS ---
FINAL REPORT CLINICAL HISTORY: Fall, hit head FINDINGS: Axial images of the head were obtained without contrast. Coronal reformatted images were also obtained. This study was performed with techniques to keep radiation doses as low as reasonably achievable (ALARA). Individualized dose reduction techniques using automated exposure control or adjustment of mA and/or kV according to the patient's size were employed. There is generalized age-appropriate atrophy. Periventricular low-attenuation areas are seen consistent with mild chronic ischemic changes. There is no evidence of intracranial hemorrhage or mass. There is no evidence of acute infarct. There is a chronic lacunar infarct in the right internal capsule. There is no evidence of shift of the midline structures. A small osteoma is seen in the lateral frontal sinus and in the left ethmoid region. No skull abnormality is seen on the bone window images. IMPRESSION: Atrophy and mild periventricular chronic ischemic changes. No acute intracranial abnormality identified. Reviewed, Interpreted and Dictated by Stef Gautam III, MD Transcribed by Yuko Regan Authenticated by Stef Gautam III, MD on 02/18/2022 02:59:39 PM [facility]
--- NOTE | 2022-02-18 12:01 | XR_ITS ---
FINAL REPORT CLINICAL HISTORY: Fall, PAIN FINDINGS: PELVIS A single view was obtained. The exam is suboptimal. There is no acute fracture or dislocation. The joint spaces are intact. There is a vascular stent in the right inguinal region. IMPRESSION: Suboptimal exam. No acute bony abnormality. Reviewed, Interpreted and Dictated by Stef Gautam III, MD Transcribed by Yuko Regan Authenticated by Stef Gautam III, MD on 02/18/2022 02:59:40 PM [facility]
--- NOTE | 2022-02-18 12:01 | XR_ITS ---
FINAL REPORT CLINICAL HISTORY: Fall , WEAK FINDINGS: A single portable view of the chest was obtained. The heart size and pulmonary vascularity are within normal limits. The mediastinum is within normal limits. There is mild right base atelectasis. The bony thorax is intact. IMPRESSION: Mild right base atelectasis. Reviewed, Interpreted and Dictated by Stef Gautam III, MD Transcribed by Yuko Regan Authenticated by Stef Gautam III, MD on 02/18/2022 02:59:27 PM [facility]
[2022-02-18 12:32] LABS: Basophils # 0.1 K/mm3 (0-0.2); Basophils % 1.1 % (0.1-2.0); Eosinophils # 0.4 K/mm3 (0.0-0.4); Eosinophils % 4.3 % (0.1-12.0); Hematocrit 44.8 % (37.0-47.0); Hemoglobin 14.5 g/dL (12.2-16.2); Lymphocytes % 10.7 % (10-50); Mean Corpuscular HGB Conc 32.4 g/dL (31.8-35.4); Mean Corpuscular Hemoglobin 27.2 pg (27.0-31.2); Mean Platelet Volume 8.1 fl (7.4-10.4); Monocytes # 0.5 K/mm3 (0.1-1.0); Monocytes % 5.6 % (1.7-9.3); Neutrophils # 7.2 K/mm3 (1.8-7.8); Neutrophils % 78.4 % (37.0-80.0); Platelet Count 348 K/mm3 (142-424); Red Blood Count 5.33 M/mm3 (4.20-5.40); Red Cell Distribution Width 15.6 % (11.5-17.5); White Blood Count 9.2 K/mm3 (4.8-10.8)
--- NOTE | 2022-02-18 12:39 | HMH.EDGENADL ---
ED Disposition Clinical Impression: Fall Qualifiers: Encounter type: initial encounter Qualified Code(s): W19.XXXA - Unspecified fall, initial encounter Contusion of right hip Qualifiers: Encounter type: initial encounter Qualified Code(s): S70.01XA - Contusion of right hip, initial encounter Disposition: Home, Self-Care Condition on Discharge: Good Instructions: How to Prevent Falls Additional Instructions: Follow-up with primary care provider, call for appointment. Return to emergency room for any worsening symptoms. Referrals: Miley Henriquez APRN [Primary Care Provider] - - Critical Care Critical Care Time: No Attestation: On 02/18/22, the high probability of a clinically significant, sudden or life threatening deterioration of the following system(s) required my full and direct attention, intervention and personal management. The time I documented below is in addition to time spent performing reported procedures but includes the following listed in this critical care notation. Medical Decision Making - Akash Inquiry Pt receiving controlled substance: No Vital Signs: 02/18/22 11:36 02/18/22 12:01 02/18/22 12:46 Temperature 98.2 F Temperature Source Oral Pulse Rate 98 H 96 H Pulse Rate [Right Radial] 102 H Respiratory Rate 18 Blood Pressure 240/122 H 207/87 H Blood Pressure [Right Arm] 244/117 H Blood Pressure Mean 156 Blood Pressure Mean [Right Arm] 159 Blood Pressure Source 02 Sat by Pulse Oximetry 98 99 93 L Oxygen Delivery Method Nasal Cannula Oxygen Flow Rate (LPM) 2 02/18/22 13:00 02/18/22 13:38 02/18/22 13:56 Temperature Temperature Source Pulse Rate 96 H 99 H Pulse Rate [Right Radial] Respiratory Rate 18 Blood Pressure 207/87 H 185/94 H 210/90 H Blood Pressure [Right Arm] Blood Pressure Mean 121 Blood Pressure Mean [Right Arm] Blood Pressure Source Automatic Cuff 02 Sat by Pulse Oximetry 97 99 Oxygen Delivery Method Oxygen Flow Rate (LPM) 02/18/22 14:31 02/18/22 15:31 02/18/22 16:31 Temperature Temperature Source Pulse Rate 96 H 96 H 110 H Pulse Rate [Right Radial] Respiratory Rate 20 Blood Pressure 186/70 H 210/81 H 208/93 H Blood Pressure [Right Arm] Blood Pressure Mean 131 118 Blood Pressure Mean [Right Arm] Blood Pressure Source 02 Sat by Pulse Oximetry 99 98 98 Oxygen Delivery Method Oxygen Flow Rate (LPM) 02/18/22 17:01 02/18/22 17:30 02/18/22 18:01 Temperature Temperature Source Pulse Rate 104 H 96 H 99 H Pulse Rate [Right Radial] Respiratory Rate 20 18 Blood Pressure 189/69 H 194/76 H 179/75 H Blood Pressure [Right Arm] Blood Pressure Mean 100 99 Blood Pressure Mean [Right Arm] Blood Pressure Source 02 Sat by Pulse Oximetry 97 96 96 Oxygen Delivery Method Oxygen Flow Rate (LPM) - Lab Data Lab Results 02/18/22 12:25: WBC 9.2, RBC 5.33, Hgb 14.5, Hct 44.8, MCV 84.0, MCH 27.2, MCHC 32.4, RDW 15.6, Plt Count 348, MPV 8.1, Neut % (Auto) 78.4, Lymph % (Auto) 10.7, [place] % (Auto) 5.6, Eos % (Auto) 4.3, Baso % (Auto) 1.1, Neut # (Auto) 7.2, Lymph # (Auto) 1.0, [place] # (Auto) 0.5, Eos # (Auto) 0.4, Baso # (Auto) 0.1 02/18/22 12:25: Sodium 138, Potassium 4.4, Chloride 102, Carbon Dioxide 27, Anion Gap 13.4, BUN 45 H, Creatinine 2.20 H, Estimated Creat Clear 16, Estimated GFR 22 L, Est GFR ( Amer) 27 L, Glucose 313 H, Calcium 10.3 H, Total Bilirubin 0.8, AST 40 H, ALT 23, Alkaline Phosphatase 111, Total Creatine Kinase 259 H, Troponin I 0.06 H, Total Protein 7.4, Albumin 4.3, Globulin 3.1, Albumin/Globulin Ratio 1.4 02/18/22 12:25: TSH 1.14 02/18/22 13:04: Lactate 1.1 02/18/22 15:00: Troponin I 0.06 H Result diagrams: 02/18/22 12:25 02/18/22 12:25 Orders (Tests/Meds): ED MEDICATIONS Generic Name Dose Route Start Last Admin Trade Name Freq PRN Reason Stop Dose Admin Sodium Chloride 10 ml 02/18/22 12:01 Sodium Chloride 0.9% 10ml F
[2022-02-18 12:43] LABS: Alanine Aminotransferase 23 U/L (12-78); Albumin Level 4.3 g/dl (3.5-5.0); Albumin/Globulin Ratio 1.4 (1.1-1.8); Alkaline Phosphatase 111 U/L (38-126); Anion Gap 13.4 mEq/L (5-15); Aspartate Amino Transferase 40 U/L (14-36); Bilirubin,Total 0.8 mg/dl (0.2-1.3); Blood Urea Nitrogen 45 mg/dl (7-17); Calcium 10.3 mg/dl (8.4-10.2); Carbon Dioxide 27 mmol/L (22.0-30.0); Chloride 102 mmol/L (98-107); Creatine Kinase 259 U/L (30-135); Creatinine Clearance Estimated 16 mL/min (50-200); Estimated Glomerular Filt Rate 22 ml/min (>60); GFR (African American) 27 ML/MIN (>60); Globulin 3.1 g/dL (1.3-3.2); Glucose 313 mg/dl (74-100); Potassium 4.4 mmoL/L (3.5-5.1); Sodium 138 mmol/L (136-145); Total Protein,Serum 7.4 g/dl (6.3-8.2)
--- NOTE | 2022-02-18 12:53 | PC.NURSE ---
Attempted IV access. Unsuccessful x 2.
[2022-02-18 12:54] LABS: Troponin I 0.06 ng/ml (0.00-0.034)
[2022-02-18 13:26] LABS: Lactic Acid 1.1 mmol/L (0.7-2.1)
[2022-02-18 13:31] LABS: Thyroid Stimulating Hormone 1.14 uIU/mL (0.465-4.68)
--- NOTE | 2022-02-18 14:00 | ECG_ITS ---
APPROVED REPORT Exam: Resting ECG HR:99 bpm ECG Measurements Heart Rate 99 AXES CA 154 P 54 QRSd 88 QRS -4 QT 367 T 108 QTc 423 Conclusion SINUS RHYTHM LEFT VENTRICULAR HYPERTROPHY AND ST-T CHANGE [VOLTAGE CRITERIA PLUS ST/T ABNORMALITY] ABNORMAL ECG UNCONFIRMED REPORT Electronically signed by : Darnell Narayan MD 02/19/2022 16:01:26
--- NOTE | 2022-02-18 14:07 | HMH.ITSTN ---
Could not scan patient when orders were put in . The nurses were trying to get a line on patient. I told them to call me when patient could come over. Did not get a call but at 2:05 I called er and Olesya said she could come over
--- NOTE | 2022-02-18 14:08 | PC.NURSE ---
PT to CT
--- NOTE | 2022-02-18 14:54 | INFXCTL.NOTE ---
placed on bedpan
--- NOTE | 2022-02-18 15:29 | PC.NURSE ---
Spoke with mary beth from [facility] she stated that CT scans had been read but weren't crossing over. She will be printing them out and bringing them to us.
[2022-02-18 15:33] LABS: Troponin I 0.06 ng/ml (0.00-0.034)
--- NOTE | 2022-02-18 15:56 | PC.NURSE ---
Pt returning to rad.
== END 2022-02-18 21:36 | disposition home or self-care (01) ==
PROVIDERS: Emergency Provider Emergency Medicine; PCP Nurse Practitioner Family
DX: S70.01XA Contusion of right hip, initial encounter (principal); W01.0XXA Fall on same level from slipping, tripping and stumbling without subsequent striking against object, initial encounter; Y92.019 Unspecified place in single-family (private) house as the place of occurrence of the external cause; Z99.81 Dependence on supplemental oxygen; I10 Essential (primary) hypertension; E78.5 Hyperlipidemia, unspecified; E11.9 Type 2 diabetes mellitus without complications; E03.9 Hypothyroidism, unspecified; Z79.899 Other long term (current) drug therapy
CPT/HCPCS: 36415; 70450; 71045; 72125; 72170; 80053; 82550; 83605; 84443; 84484; 85025; 93005; 96374; 99284

== ENCOUNTER → 2022-07-15 06:35 | Outpatient (CLI) | payer MEDICARE, MEDICAID, SELFPAY | PROVIDERS: Visit Provider Nurse Practitioner Family | DX: B35.1 Tinea unguium (principal); Z51.89 Encounter for other specified aftercare | CPT/HCPCS: 87070; 87205 ==

== ENCOUNTER → 2022-09-14 08:34 | Outpatient (CLI) | payer MEDICARE, MEDICAID, SELFPAY ==
[2022-09-14 08:45] LABS: MANUAL DIFFERENTIAL MANUAL DIFFERENTIAL (MANUAL DIFF)
[2022-09-14 09:48] LABS: Basophils # 0.1 K/mm3 (0-0.2); Basophils % 1.8 % (0.1-2.0); Eosinophils # 0.6 K/mm3 (0.0-0.4); Eosinophils % 10.3 % (0.1-12.0); Hematocrit 38.8 % (37.0-47.0); Lymphocytes # 1.2 K/mm3 (0.7-4.5); Lymphocytes % 20.1 % (10-50); Mean Corpuscular HGB Conc 31.1 g/dL (31.8-35.4); Mean Corpuscular Hemoglobin 27.9 pg (27.0-31.2); Mean Corpuscular Volume 89.8 fl (81-99); Mean Platelet Volume 7.6 fl (7.4-10.4); Monocytes # 0.4 K/mm3 (0.1-1.0); Monocytes % 6.4 % (1.7-9.3); Neutrophils # 3.5 K/mm3 (1.8-7.8); Neutrophils % 61.4 % (37.0-80.0); Platelet Count 314 K/mm3 (142-424); Red Blood Count 4.32 M/mm3 (4.20-5.40); Red Cell Distribution Width 14.6 % (11.5-17.5); White Blood Count 5.8 K/mm3 (4.8-10.8)
[2022-09-14 10:19] LABS: Hemoglobin A1C 8.6 % (4.0-6.0)
[2022-09-14 10:25] LABS: Alanine Aminotransferase 17 U/L (12-78); Albumin Level 3.6 g/dl (3.5-5.0); Albumin/Globulin Ratio 1.5 (1.1-1.8); Alkaline Phosphatase 122 U/L (38-126); Aspartate Amino Transferase 20 U/L (14-36); Bilirubin,Total 0.3 mg/dl (0.2-1.3); Blood Urea Nitrogen 40 mg/dl (7-17); Carbon Dioxide 30 mmol/L (22.0-30.0); Chloride 99 mmol/L (98-107); Estimated Glomerular Filt Rate 22 ml/min (>60); GFR (African American) 27 ML/MIN (>60); Globulin 2.4 g/dL (1.3-3.2); Glucose 244 mg/dl (74-100); Sodium 140 mmol/L (136-145)
[2022-09-14 10:27] LABS: Phosphorous 3.2 mg/dl (2.5-4.5)
[2022-09-14 10:30] LABS: C-Reactive Protein 7.2 mg/L (0-4)
[2022-09-14 10:57] LABS: Erythrocyte Sedimentation Rate 75 mm/hr (0-30)
[2022-09-14 11:41] LABS: Eosinophils % 6 % (0-3); Lymphocytes % 17 % (10-50); Monocytes % 5 % (2-9); Neutrophils % 72 % (42-76); Total Cells Counted 100
[2022-09-14 11:42] LABS: Platelet Estimate Normal; RBC Morphology Normal
== END ==
PROVIDERS: Nurse Practitioner Family; PCP Nurse Practitioner Family; Visit Provider Internal Medicine Nephrology
DX: Z51.89 Encounter for other specified aftercare (principal); N18.4 Chronic kidney disease, stage 4 (severe); E11.9 Type 2 diabetes mellitus without complications; Z79.4 Long term (current) use of insulin
CPT/HCPCS: 36415; 80053; 80069; 83036; 84100; 85007; 85014; 85018; 85048; 85049; 85651; 86140

== ENCOUNTER → 2022-09-21 14:54 | Outpatient (POV) | payer MEDICARE, MEDICAID, SELFPAY | PROVIDERS: Visit Provider Internal Medicine Nephrology | DX: Z00.00 Encounter for general adult medical examination without abnormal findings (principal) ==

== ENCOUNTER → 2022-10-06 09:50 | Outpatient (CLI) | payer MEDICARE, MEDICAID, SELFPAY | PROVIDERS: Visit Provider Nurse Practitioner Family | DX: E11.51 Type 2 diabetes mellitus with diabetic peripheral angiopathy without gangrene (principal); Z79.4 Long term (current) use of insulin; B35.1 Tinea unguium | CPT/HCPCS: 87102; 87206; 87220 ==

== ENCOUNTER → 2023-03-15 09:13 | Outpatient (CLI) | payer MEDICARE, MEDICAID, SELFPAY ==
[2023-03-15 09:59] LABS: Basophils # 0.1 K/mm3 (0-0.2); Basophils % 0.9 % (0.1-2.0); Eosinophils # 0.7 K/mm3 (0.0-0.4); Eosinophils % 11.7 % (0.1-12.0); Hematocrit 36.3 % (37.0-47.0); Hemoglobin 11.2 g/dL (12.2-16.2); Lymphocytes # 1.1 K/mm3 (0.7-4.5); Lymphocytes % 18.2 % (10-50); Mean Corpuscular HGB Conc 30.9 g/dL (31.8-35.4); Mean Corpuscular Hemoglobin 26.6 pg (27.0-31.2); Mean Corpuscular Volume 86.1 fl (81-99); Mean Platelet Volume 8.2 fl (7.4-10.4); Monocytes # 0.4 K/mm3 (0.1-1.0); Monocytes % 6.9 % (1.7-9.3); Neutrophils # 3.8 K/mm3 (1.8-7.8); Neutrophils % 62.3 % (37.0-80.0); Platelet Count 268 K/mm3 (142-424); Red Blood Count 4.21 M/mm3 (4.20-5.40); Red Cell Distribution Width 15.4 % (11.5-17.5); White Blood Count 6.1 K/mm3 (4.8-10.8)
[2023-03-15 11:14] LABS: Albumin Level 3.8 g/dl (3.5-5.0); Blood Urea Nitrogen 39 mg/dl (7-17); Calcium 9.6 mg/dl (8.4-10.2); Carbon Dioxide 33 mmol/L (22.0-30.0); Chloride 100 mmol/L (98-107); Estimated Glomerular Filt Rate 16 ml/min (>60); GFR (African American) 19 ML/MIN (>60); Glucose 249 mg/dl (74-100); Phosphorous 3.6 mg/dl (2.5-4.5); Sodium 139 mmol/L (136-145)
[2023-03-15 11:22] LABS: Intact Parathyroid Hormone 118.5 pg/mL (7.5-53.5)
== END ==
PROVIDERS: PCP Nurse Practitioner Family; Visit Provider Internal Medicine Nephrology
DX: N18.4 Chronic kidney disease, stage 4 (severe) (principal); I10 Essential (primary) hypertension; N25.0 Renal osteodystrophy
CPT/HCPCS: 36415; 80069; 82306; 83970; 85025

== ENCOUNTER → 2023-03-22 10:01 | Outpatient (POV) | payer MEDICARE, MEDICAID, SELFPAY | PROVIDERS: Visit Provider Nurse Practitioner | DX: Z00.00 Encounter for general adult medical examination without abnormal findings (principal) ==

== ENCOUNTER → 2023-06-09 08:42 | Outpatient (CLI) | payer MEDICARE, MEDICAID, SELFPAY ==
[2023-06-09 08:51] LABS: Microscopic, Urine URINE MICROSCOPIC (MICROSCOPIC)
[2023-06-09 09:08] LABS: Appearance,Urine CLOUDY (Clear); Bilirubin,Urine Negative (Negative); Blood, Urine 1+ (Negative); Color,Urine YELLOW (Yellow); Glucose,Urine (UA) 3+ (Negative); Ketones,Urine Negative (Negative); Leukocyte Esterase,Urine 1+ (Negative); Nitrate,Urine POSITIVE (Negative); Protein,Urine 3+ (Negative); Urobilinogen,Urine 0.2 EU/dl (0.2)
[2023-06-09 09:30] LABS: WBC,Urine TNTC #/hpf (0-3)
[2023-06-09 09:31] LABS: Bacteria,Urine 1+ /lpf
[2023-06-09 09:35] LABS: Albumin Level 3.7 g/dl (3.5-5.0); Anion Gap 10.4 mEq/L (5-15); Blood Urea Nitrogen 30 mg/dl (7-17); Carbon Dioxide 34 mmol/L (22.0-30.0); Chloride 96 mmol/L (98-107); Estimated Glomerular Filt Rate 19 ml/min (>60); GFR (African American) 23 ML/MIN (>60); Glucose 391 mg/dl (74-100); Phosphorous 3.5 mg/dl (2.5-4.5); Potassium 3.4 mmoL/L (3.5-5.1); Sodium 137 mmol/L (136-145)
[2023-06-09 09:50] LABS: Intact Parathyroid Hormone 148.7 pg/mL (7.5-53.5)
[2023-06-09 09:54] LABS: 25-OH Vitamin D, Total 26.6 ng/mL (30-100)
[2023-06-09 10:03] LABS: Creatinine,Urine Random 78 mg/dL (Not Estab.)
== END ==
PROVIDERS: PCP Nurse Practitioner Family; Visit Provider Nurse Practitioner
DX: N18.4 Chronic kidney disease, stage 4 (severe) (principal); R82.90 Unspecified abnormal findings in urine; B96.89 Other specified bacterial agents as the cause of diseases classified elsewhere
CPT/HCPCS: 36415; 80069; 81001; 82306; 82570; 83970; 84155; 87086; 87088; 87186

== ENCOUNTER → 2023-06-15 08:52 | Outpatient (CLI) | payer MEDICARE, MEDICAID, SELFPAY ==
--- NOTE | 2023-06-15 08:54 | CA_ITS ---
FINAL REPORT CLINICAL HISTORY: CKD STAGE 4,HTN,PT SAYS SHE HAS RENAL STENTS FINDINGS: Aorta velocity: 134 cm/sec Right kidney: 10.7 cm. Right intrarenal RI: 0.72-point 95, elevated. Right renal artery velocity: 127 cm/sec. Right RAR (Renal artery-Aortic Ratio): 1.0 Left Kidney: 10.9 cm. Left intrarenal RI: 0.7 0.82, normal Left renal artery velocity: 187 cm/sec. Left RAR (Renal Artery-Aortic Ratio): 1.4 IMPRESSION: No evidence of significant renal artery stenosis. CT angiogram or postcontrast MR angiogram would be more sensitive for evaluation of possible renal artery stenosis. Reviewed, Interpreted and Dictated by Jose Alberto Ortiz MD Transcribed by Myla Cordova Authenticated and [facility]
== END ==
PROVIDERS: PCP Nurse Practitioner Family; Visit Provider Nurse Practitioner
DX: N18.4 Chronic kidney disease, stage 4 (severe) (principal)
CPT/HCPCS: 93976

== ENCOUNTER → 2023-07-12 11:32 | Outpatient (POV) | payer MEDICARE, MEDICAID, SELFPAY | PROVIDERS: Visit Provider Internal Medicine Nephrology | DX: Z00.00 Encounter for general adult medical examination without abnormal findings (principal) ==

== ENCOUNTER → 2023-09-27 08:45 | Outpatient (POV) | payer MEDICARE, MEDICAID, SELFPAY ==
--- NOTE | 2023-09-27 09:49 | ECG_ITS ---
APPROVED REPORT Exam: Resting ECG HR:99 bpm ECG Measurements Heart Rate 99 AXES OK 148 P 50 QRSd 92 QRS 34 QT 355 T 125 QTc 412 Conclusion SINUS RHYTHM NONSPECIFIC ST & T-WAVE ABNORMALITY ABNORMAL ECG UNCONFIRMED REPORT Electronically signed by : Darnell Narayan MD 09/27/2023 17:48:36
== END ==
PROVIDERS: Visit Provider Nurse Practitioner
DX: I12.9 Hypertensive chronic kidney disease with stage 1 through stage 4 chronic kidney disease, or unspecified chronic kidney disease (principal)
CPT/HCPCS: 93005

== ENCOUNTER 2023-09-27 09:21 | Emergency (ER) | payer MEDICARE, MEDICAID, SELFPAY ==
[2023-09-27 09:22] VITALS: BP 241/106; PULSE 99; RESP 20; TEMP 36.6; O2SAT 96; BMI 38.0
--- NOTE | 2023-09-27 09:42 | PC.NURSE ---
Dr. Luke at [facility] for pt eval
--- NOTE | 2023-09-27 09:45 | HMH.EDGENADL ---
Discharge Plan Disposition Patient Disposition: Home, Self-Care Chief Complaint: Recheck/Abnormal Lab/Rx Prescriptions Prescriptions: No Action cholecalciferol (vitamin D3) 2,000 unit tablet 2,000 unit PO DAILY 30 Days Patient Comments: TAKE 1 TABLET BY MOUTH EVERY DAY bumetanide 2 mg tablet 2 mg PO DAILY doxazosin 1 mg tablet 1 mg PO DAILY pantoprazole 20 mg tablet,delayed release (DR/EC) 20 mg PO DAILY levothyroxine 88 mcg tablet 88 mcg PO DAILY insulin glargine U-300 conc 300 unit/mL (1.5 mL) insulin pen 74 unit SQ HS 30 Days Qty: 8.1 carvedilol 25 mg tablet 25 mg PO BID rosuvastatin 40 mg tablet 40 mg PO DAILY clopidogrel 75 mg tablet 75 mg PO DAILY Qty: 30 5RF isosorbide mononitrate 120 mg tablet extended release 24 hr 120 mg PO DAILY Qty: 30 4RF Rx Instructions: HOLD IF SBP <100, DBP <60 OR HR <60 aspirin 81 mg tablet,delayed release (DR/EC) See Rx Instructions .ROUTE .COMPLEX Qty: 90 0RF Dose Instruction: TAKE ONE TABLET BY MOUTH EVERY DAY AT BEDTIME FOR HEART HEALTH Rx Instructions: TAKE ONE TABLET BY MOUTH EVERY DAY AT BEDTIME FOR HEART HEALTH hydralazine 100 MG tablet 100 mg PO TID Rx Instructions: HOLD IF SBP <100, DBP <60 OR HR <60 oxycodone 5 mg tablet 5 mg PO TIDP PRN (Reason: Severe Pain (Scale Score 7-10)) insulin lispro 100 UNIT/ML cartridge 0 unit SQ ACHS Rx Instructions: 151 - 200=2Units ; 201 - 250= 5units ; 251 - 300= 8units ; 301 - 350= 10units ; 351 - 400= 12units ; 401 - 450= 15units ; <60 or >450 call MD Referrals Follow up/Referrals: Miley Henriquez APRN [Primary Care Provider] - See instructions Activity Restrictions/Add. Instructions Additional Instructions/Restrictions: At this time it was felt you are safe to be discharged home. If new or worsening symptoms please do not hesitate to return the emergency department. If symptoms persist please follow-up with your family doctor as you are able. Clinical Impressions Clinical Impression: Severe essential hypertension, CKD (chronic kidney disease) Discharge ED Provider: Pedro Luke General Adult HPI General Chief complaint: Recheck/Abnormal Lab/Rx Stated complaint: FAR[place]WORTH, high BP Time Seen by Provider: 09/27/23 09:28 History of Present Illness HPI narrative: Patient is a 73-year-old female with multiple comorbidities including CKD, recent AV fistula placement on the left, hypertension, hyperlipidemia, insulin-dependent diabetes who presents to the emergency department for evaluation of asymptomatic hypertension. Patient's blood pressure was noted to be 240 at clinic appointment for routine follow-up and she was immediately transferred here for continued evaluation. Patient denies any acute complaints at this time and has not taken any of her medications this morning. Related Data Home Medications Medication Instructions Recorded Confirmed cholecalciferol (vitamin D3) 50 2,000 unit PO DAILY supplement 30 02/20/19 09/27/23 mcg (2,000 unit) tablet days insulin glargine U-300 conc 300 74 unit SQ HS Diabetes 30 days 02/20/19 09/27/23 unit/mL (1.5 mL) subcutaneous pen #8.1 mL hydralazine 100 mg tablet 100 mg PO TID High blood pressure 06/01/19 09/27/23 insulin lispro 100 unit/mL 0 unit SQ ACHS Diabetes 06/17/19 09/27/23 subcutaneous cartridge bumetanide 2 mg tablet 2 mg PO DAILY 07/29/22 09/27/23 doxazosin 1 mg tablet 1 mg PO DAILY 07/29/22 09/27/23 levothyroxine 88 mcg tablet 88 mcg PO DAILY 07/29/22 09/27/23 pantoprazole 20 mg tablet,delayed 20 mg PO DAILY 07/29/22 09/27/23 release carvedilol 25 mg tablet 25 mg PO BID 10/06/22 09/27/23 rosuvastatin 40 mg tablet 40 mg PO DAILY 10/06/22 09/27/23 oxycodone 5 mg tablet 5 mg PO TIDP PRN Severe Pain 09/27/23 09/27/23 (Scale Score 7-10) Previous Rx's Medication Instructions Recorded clopidogrel 75 mg tablet 75 mg PO DAILY PLATELET INHIBITOR
[2023-09-27 09:57] LABS: Basophils # 0.1 K/mm3 (0-0.2); Basophils % 0.6 % (0.1-2.0); Eosinophils # 0.5 K/mm3 (0.0-0.4); Eosinophils % 5.4 % (0.1-12.0); Hematocrit 35.6 % (37.0-47.0); Hemoglobin 12.1 g/dL (12.2-16.2); Lymphocytes % 11.5 % (10-50); Mean Corpuscular HGB Conc 33.9 g/dL (31.8-35.4); Mean Corpuscular Hemoglobin 28.6 pg (27.0-31.2); Mean Corpuscular Volume 84.1 fl (81-99); Mean Platelet Volume 7.8 fl (7.4-10.4); Monocytes # 0.5 K/mm3 (0.1-1.0); Monocytes % 5.9 % (1.7-9.3); Neutrophils # 6.5 K/mm3 (1.8-7.8); Neutrophils % 76.7 % (37.0-80.0); Platelet Count 274 K/mm3 (142-424); Red Blood Count 4.23 M/mm3 (4.20-5.40); Red Cell Distribution Width 14.8 % (11.5-17.5); White Blood Count 8.4 K/mm3 (4.8-10.8)
[2023-09-27 10:00] VITALS: BP 220/84; PULSE 97; RESP 18; O2SAT 99
[2023-09-27 10:07] LABS: Alanine Aminotransferase 16 U/L (12-78); Albumin/Globulin Ratio 1.2 (1.1-1.8); Alkaline Phosphatase 104 U/L (38-126); Anion Gap 15.6 mEq/L (5-15); Aspartate Amino Transferase 26 U/L (14-36); Bilirubin,Total 0.5 mg/dl (0.2-1.3); Blood Urea Nitrogen 34 mg/dl (7-17); Calcium 10.2 mg/dl (8.4-10.2); Carbon Dioxide 30 mmol/L (22.0-30.0); Chloride 97 mmol/L (98-107); Creatinine Clearance Estimated 29 mL/min (50-200); Estimated Glomerular Filt Rate 20 ml/min (>60); GFR (African American) 24 ML/MIN (>60); Globulin 3.3 g/dL (1.3-3.2); Glucose 261 mg/dl (74-100); Potassium 3.6 mmoL/L (3.5-5.1); Sodium 139 mmol/L (136-145); Total Protein,Serum 7.3 g/dl (6.3-8.2)
[2023-09-27 10:30] VITALS: BP 207/74; PULSE 91; RESP 20; O2SAT 99
[2023-09-27 11:00] VITALS: BP 200/82; PULSE 90; RESP 20; O2SAT 99
[2023-09-27 11:11] VITALS: BP 199/83; PULSE 87; RESP 19; TEMP 36.8; O2SAT 98
== END 2023-09-27 11:20 | disposition home or self-care (01) ==
PROVIDERS: Emergency Provider Emergency Medicine; PCP Nurse Practitioner Family
DX: I12.9 Hypertensive chronic kidney disease with stage 1 through stage 4 chronic kidney disease, or unspecified chronic kidney disease (principal); N18.9 Chronic kidney disease, unspecified; R51.9 Headache, unspecified; I25.118 Atherosclerotic heart disease of native coronary artery with other forms of angina pectoris; I65.29 Occlusion and stenosis of unspecified carotid artery; I73.9 Peripheral vascular disease, unspecified; E78.5 Hyperlipidemia, unspecified; E11.9 Type 2 diabetes mellitus without complications; Z79.4 Long term (current) use of insulin
CPT/HCPCS: 80053; 85025; 93005; 99284

== ENCOUNTER 2023-12-08 13:54 | Emergency (ER) | payer MEDICARE, MEDICAID, SELFPAY ==
[2023-12-08] VITALS (7 sets, daily range): BP systolic 97–165; BP diastolic 63–67; PULSE 70–71; RESP 16; TEMP 36.7–36.9; O2SAT 97–99; BMI 35.7
--- NOTE | 2023-12-08 14:23 | HMH.EDGENADL ---
Discharge Plan Disposition Patient Disposition: Home, Self-Care Prescriptions Prescriptions: New cefdinir 300 mg capsule 300 mg PO BID 10 Days Qty: 20 0RF No Action cholecalciferol (vitamin D3) 2,000 unit tablet 2,000 unit PO DAILY 30 Days Patient Comments: TAKE 1 TABLET BY MOUTH EVERY DAY bumetanide 2 mg tablet 2 mg PO DAILY pantoprazole 20 mg tablet,delayed release (DR/EC) 20 mg PO DAILY levothyroxine 88 mcg tablet 88 mcg PO DAILY doxazosin 2 mg tablet PO Patient Comments: TAKE ONE TABLET BY MOUTH EVERY NIGHT insulin glargine U-300 conc 300 unit/mL (1.5 mL) insulin pen 74 unit SQ HS 30 Days Qty: 8.1 carvedilol 25 mg tablet 25 mg PO BID rosuvastatin 40 mg tablet 40 mg PO DAILY clopidogrel 75 mg tablet 75 mg PO DAILY Qty: 30 5RF isosorbide mononitrate 120 mg tablet extended release 24 hr 120 mg PO DAILY Qty: 30 4RF Rx Instructions: HOLD IF SBP <100, DBP <60 OR HR <60 aspirin 81 mg tablet,delayed release (DR/EC) See Rx Instructions .ROUTE .COMPLEX Qty: 90 3RF Dose Instruction: TAKE ONE TABLET BY MOUTH EVERY DAY AT BEDTIME FOR heart health Rx Instructions: TAKE ONE TABLET BY MOUTH EVERY DAY AT BEDTIME FOR heart health hydralazine 100 MG tablet 100 mg PO TID Rx Instructions: HOLD IF SBP <100, DBP <60 OR HR <60 oxycodone 5 mg tablet 5 mg PO TIDP PRN (Reason: Severe Pain (Scale Score 7-10)) insulin lispro 100 UNIT/ML cartridge 0 unit SQ ACHS Rx Instructions: 151 - 200=2Units ; 201 - 250= 5units ; 251 - 300= 8units ; 301 - 350= 10units ; 351 - 400= 12units ; 401 - 450= 15units ; <60 or >450 call MD Referrals Follow up/Referrals: Provider,Referral, MD [Referring] - See instructions Activity Restrictions/Add. Instructions Additional Instructions/Restrictions: Antibiotic twice daily for 10 days. Call your family doctor to establish care for this visit to the emergency department and schedule follow-up within 48 hours to ensure improvement. If you have any worsening of your condition or any other concerning signs or symptoms, return to the emergency department or your primary care doctor for further evaluation. Clinical Impressions Clinical Impression: Acute UTI, Acute hyperglycemia Instructions Patient Instructions: DI for Hyperglycemia -- Adult Discharge ED Provider: Milton Abdalla General Adult HPI <Pedro Luke MD - Last Filed: 12/08/23 15:15> General Chief complaint: Hyper/Hypoglycemia Stated complaint: weakness Time Seen by Provider: 12/08/23 14:00 Mode of Arrival: EMS Source of Information: Patient Limitations: No Limitations Description of Symptoms (Recalled from ER Triage Doc. by RN): pt reports to ED with high glucose reading. EMS stated that the glucose meter read high. pt reports to taking 10 units of novalog at 1330. pt on home O2 at 2 LPM. reports spot on coccyx. frequent urination, no burning ongoing for 2 months History of Present Illness HPI narrative: Patient is a 73-year-old female with past medical history of CKD, hypertension, hyperlipidemia, insulin-dependent diabetes who presents emergency department for multiple complaints. Patient has poor glycemic control and frequently blood glucoses read as high. Home health aides have been lowered to 2 days a week, she is largely unable to take care of herself on her days off and stockpiles food and water next to her chair in a cubby . At baseline patient can ambulate some with a walker. At the behest of home health worker she presents here for continued evaluation. Patient states that she has chronic dysuria and increased urinary frequency otherwise no acute complaints other than her inability to take care of herself at home. Patient has a baseline 2 L oxygen requirement for an anesthesia related respiratory issue and denies history of COPD. Patient has yet to have dialysis however she did have a fistula placed in early October at [facility] in her left arm. Related Data Home Medications Medication Instructions Recorded Confirmed cholecalciferol (vitamin D3) 50 2,000 unit PO DAILY supplement 30 02/20/19 10/13/23 mcg (2,000 unit) tablet days insulin glargine U-300 conc 300 74 unit SQ HS Diabetes 30 days 02/20/19 10/13/23 unit/mL (1.5 mL) subcutaneous pen #8.1 mL hydralazine 100 mg tablet 100 mg PO TID High blood pressure 06/01/19 10/13/23 insulin lispro 100 unit/mL 0 unit SQ ACHS Diabetes 06/17/19 10/13/23 subcutaneous cartridge bumetanide 2 mg tablet 2 mg PO DAILY 07/29/22 10/13/23 levothyroxine 88 mcg tablet 88 mcg PO DAILY 07/29/22 10/13/23 pantoprazole 20 mg tablet,delayed 20 mg PO DAILY 07/29/22 10/13/23 release carvedilol 25 mg tablet 25 mg PO BID 10/06/22 10/13/23 rosuvastatin 40 mg tablet 40 mg PO DAILY 10/06/22 10/13/23 oxycodone 5 mg tablet 5 mg PO TIDP PRN Severe Pain 09/27/23 10/13/23 (Scale Score 7-10) doxazosin 2 mg tablet mg PO 10/13/23 10/13/23 Previous Rx's Medication Instructions Recorded clopidogrel 75 mg tablet 75 mg PO DAILY PLATELET INHIBITOR 05/08/20 #30 tabs isosorbide mononitrate 120 mg 120 mg PO DAILY Hypertension #30 05/08/20 tablet,extended release 24 hr tabs aspirin 81 mg tablet,delayed See Rx Instructions .Route 10/25/23 release .COMPLEX #90 tabs cefdinir 300 mg capsule 300 mg PO BID 10 days #20 caps 12/08/23 Allergies Allergy/AdvReac Type Severity Reaction Status Date / Time No Known Allergies Allergy Verified 10/13/23 14:47 PFSH <Pedro Luke MD - Last Filed: 12/08/23 15:15> PFS Disclaimer: The information contained in this section may have been updated after the patient was seen, as this information can be updated by other users. Medical History Angina, class III Bilateral iliac artery stenosis CAD (coronary artery disease) Carotid artery stenosis Chest pain CKD (chronic kidney disease) Claudication of both lower extremities Diabetes Family history of early CAD HLD (hyperlipidemia) HTN (hypertension) SOB (shortness of breath) Stenosis of aorta Social History Smoking Status: Never smoker alcohol intake: never counseling provided: none substance use type: denies use current occupational status: retired Travel in the last 8 weeks: None household members: none housing: house <Pedro Luke MD - Last Filed: 12/08/23 15:15> ROS Obtained: Yes Systems reviewed as appropriate & no additional complaints except as documented Physical Exam <Pedro Luke MD - Last Filed: 12/08/23 15:15> General General appearance: alert and in no apparent distress Head Head exam: atraumatic and normocephalic Eye Eye exam: Present PERRL and EOMI ENT ENT exam: Present mucous membranes moist Neck Neck exam: Present normal inspection Chest Chest inspection: Present normal inspection and symmetric chest wall rise Respiratory Respiratory exam: Present normal lung sounds bilaterally; Absent respiratory distress Cardiovascular Cardiovascular exam: Present regular rate, normal rhythm and other (Bilateral lower extremity pitting edema) Abdominal Exam Abdominal exam: Present soft; Absent tenderness Extremities Exam Extremities exam: Present other (Left upper extremity fistula with palpable thrill) Neurological Exam Neurological exam: Present alert Psychiatric Psychiatric exam: Present normal affect Skin Skin exam: Present warm and dry Medical Decision Making <Pedro Luke MD - Last Filed: 12/08/23 15:15> Akash Inquiry Pt receiving controlled substance: No Vital Signs: 12/08/23 13:54 12/08/23 15:23 12/08/23 15:25 Temperature 98.5 F Temperature Source Oral Pulse Rate 71 70 Pulse Rate [Left Radial] 71 Respiratory Rate 16 Blood Pressure 157/63 H 165/65 H Blood Pressure [Right Arm] 164/67 H Blood Pressure Mean 94 Blood Pressure Mean [Right Arm] 99 02 Sat by Pulse Oximetry 99 97 98 Oxygen Delivery Method Nasal Cannula Room Air Oxygen Flow Rate (LPM) 2 12/08/23 16:01 12/08/23 16:30 12/08/23 17:00 Temperature Temperature Source Pulse Rate Pulse Rate [Left Radial] Respiratory Rate Blood Pressure 97/67 L 161/66 H 153/66 H Blood Pressure [Right Arm] Blood Pressure Mean 77 76 95 Blood Pressure Mean [Right Arm] 02 Sat by Pulse Oximetry 97 97 97 Oxygen Delivery Method Oxygen Flow Rate (LPM) Lab Data Lab Results 12/08/23 14:00: WBC 4.8, RBC 4.58, Hgb 12.9, Hct 40.3, MCV 88.1, MCH 28.3, MCHC 32.1, RDW 15.4, Plt Count 277, MPV 7.9, Neut % (Auto) 75.0, Lymph % (Auto) 15.0, Mclean % (Auto) 5.4, Eos % (Auto) 3.7, Baso % (Auto) 0.9, Neut # (Auto) 3.6, Lymph # (Auto) 0.7, Mclean # (Auto) 0.3, Eos # (Auto) 0.2, Baso # (Auto) 0.0, Sodium 132 L, Potassium 3.5, Chloride 96 L, Carbon Dioxide 30, Anion Gap 9.5, BUN 34 H, Creatinine 2.00 H, Estimated Creat Clear 32, Estimated GFR 25 L, Est GFR ( Amer) 30 L, Glucose 537 H*, Calcium 9.5, Total Bilirubin 0.5, AST 20, ALT 16, Alkaline Phosphatase 124, Troponin I 0.07 H, Total Protein 5.8 L, Albumin 3.2 L, Globulin 2.6, Albumin/Globulin Ratio 1.2, Lipase 78, Acetone Level Small 12/08/23 14:12: VBG pH 7.39, VBG pCO2 43.0, VBG pO2 71.5 H, VBG HCO3 25.5, VBG Total CO2 26.8, VBG O2 Saturation 94.9 H, VBG Base Excess 0.6 12/08/23 14:33: Lactate 2.3 H 12/08/23 15:07: Urine Color Yellow, Urine Appearance Sl cloudy, Urine pH 6.5, Ur Specific Ola 1.015, Urine Protein 2+, Urine Glucose (UA) 3+, Urine Ketones Negative, Urine Blood 1+, Urine Nitrate Negative, Urine Bilirubin 1+ A, Urine Urobilinogen 0.2, Ur Leukocyte Esterase Trace, Urine RBC 3-5, Urine WBC 20-50, Ur Squamous Epith Cells Occasional, Urine Bacteria 2+ 12/08/23 17:08: Sodium 133 L, Potassium 3.7, Chloride 97 L, Carbon Dioxide 28, Anion Gap 11.7, BUN 33 H, Creatinine 1.80 H, Estimated Creat Clear 35, Estimated GFR 28 L, Est GFR ( Amer) 34 L, Glucose 367 H D, Calcium 9.0, Troponin I 0.07 H 12/08/23 14:00 12/08/23 17:08 Orders (Tests/Meds): ED MEDICATIONS Discontinued Medications Generic Name Dose Route Start Last Admin Trade Name Freq PRN Reason Stop Dose Admin Ceftriaxone Sodium 1 gm/ 50 mls @ 100 mls/hr 12/08/23 15:49 12/08/23 16:27 Sodium Chloride IV 12/08/23 16:18 100 mls/hr ONCE ONE Administration Insulin Human Regular 5 unit 12/08/23 15:15 12/08/23 15:38 Insulin Human Regular 100 Units/Ml 10ml Vial IVP 12/08/23 15:16 Not Given ONCE ONE ORDERS Category Date Time Status Acetone, Serum (Rapid) Stat Lab 12/08/23 14:00 Completed BMP [Basic Metabolic Panel] Stat Lab 12/08/23 17:08 Completed CBC w/Auto Diff [Complete Blood Count Auto Diff] Stat Lab 12/08/23 14:00 Completed CMP [Comprehensive Metabolic Panel] Stat Lab 12/08/23 14:00 Completed Lactic Acid Stat Lab 12/08/23 14:33 Completed Lipase Stat Lab 12/08/23 14:00 Completed Trop I [Troponin I] Stat Lab 12/08/23 14:00 Completed Troponin I Q3H Lab 12/08/23 17:08 Completed Troponin I Q3H Lab 12/08/23 21:15 Ordered UA [Urinalysis and Microscopic] Stat Lab 12/08/23 15:07 Completed Blood Culture Stat Micro 12/08/23 15:13 Received Urine Culture Stat Micro 12/08/23 15:07 Received VBG [Venous Blood Gas] Stat RT 12/08/23 14:12 Completed ECG initial Besson Stat Y 12/08/23 14:49 Completed ECG Data Tracing #1: Independently interpreted by me, rate 71, rhythm is regular, scooping T wave inversions in the lateral leads QTc 441. Medical Decision Narrative: In summary patient is a 73-year-old female with past medical history described above presents emergency department for evaluation of hyperglycemia. Patient is hemodynamically stable and nontoxic-appearing upon arrival, afebrile. Differential includes DKA, hyperglycemia, acute functional Salazar, among others. Workup will be conducted with hematologic labs, VBG, EKG. Initial interventions include 500 cc crystalloid bolus. Initial workup reviewed by me, hematologic labs are remarkable for hyperglycemia, stable CKD. Patient has no anion gap so no concern for DKA at this time. Urinalysis is pending in the setting of dysuria. Patient has scooping ST depression and no chest pain so single troponin will be ordered although doubt ACS at this time. Patient will be given subsequent dose of insulin. Regardless patient will require placement as she is unable to care for herself. The case was discussed with care management and they will evaluate the patient. Medical clearance and care management eval is pending at time of transfer of care to the oncoming physician, Dr. Abdalla. <Milton Abdalla MD - Last Filed: 12/08/23 18:00> Vital Signs: 12/08/23 13:54 12/08/23 15:23 12/08/23 15:25 Temperature 98.5 F Temperature Source Oral Pulse Rate 71 70 Pulse Rate [Left Radial] 71 Respiratory Rate 16 Blood Pressure 157/63 H 165/65 H Blood Pressure [Right Arm] 164/67 H Blood Pressure Mean 94 Blood Pressure Mean [Right Arm] 99 02 Sat by Pulse Oximetry 99 97 98 Oxygen Delivery Method Nasal Cannula Room Air Oxygen Flow Rate (LPM) 2 12/08/23 16:01 12/08/23 16:30 12/08/23 17:00 Temperature Temperature Source Pulse Rate Pulse Rate [Left Radial] Respiratory Rate Blood Pressure 97/67 L 161/66 H 153/66 H Blood Pressure [Right Arm] Blood Pressure Mean 77 76 95 Blood Pressure Mean [Right Arm] 02 Sat by Pulse Oximetry 97 97 97 Oxygen Delivery Method Oxygen Flow Rate (LPM) Lab Data Lab Results 12/08/23 14:00: WBC 4.8, RBC 4.58, Hgb 12.9, Hct 40.3, MCV 88.1, MCH 28.3, MCHC 32.1, RDW 15.4, Plt Count 277, MPV 7.9, Neut % (Auto) 75.0, Lymph % (Auto) 15.0, Mclean % (Auto) 5.4, Eos % (Auto) 3.7, Baso % (Auto) 0.9, Neut # (Auto) 3.6, Lymph # (Auto) 0.7, Mclean # (Auto) 0.3, Eos # (Auto) 0.2, Baso # (Auto) 0.0, Sodium 132 L, Potassium 3.5, Chloride 96 L, Carbon Dioxide 30, Anion Gap 9.5, BUN 34 H, Creatinine 2.00 H, Estimated Creat Clear 32, Estimated GFR 25 L, Est GFR ( Amer) 30 L, Glucose 537 H*, Calcium 9.5, Total Bilirubin 0.5, AST 20, ALT 16, Alkaline Phosphatase 124, Troponin I 0.07 H, Total Protein 5.8 L, Albumin 3.2 L, Globulin 2.6, Albumin/Globulin Ratio 1.2, Lipase 78, Acetone Level Small 12/08/23 14:12: VBG pH 7.39, VBG pCO2 43.0, VBG pO2 71.5 H, VBG HCO3 25.5, VBG Total CO2 26.8, VBG O2 Saturation 94.9 H, VBG Base Excess 0.6 12/08/23 14:33: Lactate 2.3 H 12/08/23 15:07: Urine Color Yellow, Urine Appearance Sl cloudy, Urine pH 6.5, Ur Specific Ola 1.015, Urine Protein 2+, Urine Glucose (UA) 3+, Urine Ketones Negative, Urine Blood 1+, Urine Nitrate Negative, Urine Bilirubin 1+ A, Urine Urobilinogen 0.2, Ur Leukocyte Esterase Trace, Urine RBC 3-5, Urine WBC 20-50, Ur Squamous Epith Cells Occasional, Urine Bacteria 2+ 12/08/23 17:08: Sodium 133 L, Potassium 3.7, Chloride 97 L, Carbon Dioxide 28, Anion Gap 11.7, BUN 33 H, Creatinine 1.80 H, Estimated Creat Clear 35, Estimated GFR 28 L, Est GFR ( Amer) 34 L, Glucose 367 H D, Calcium 9.0, Troponin I 0.07 H Orders (Tests/Meds): ED MEDICATIONS Discontinued Medications Generic Name Dose Route Start Last Admin Trade Name Freq PRN Reason Stop Dose Admin Ceftriaxone Sodium 1 gm/ 50 mls @ 100 mls/hr 12/08/23 15:49 12/08/23 16:27 Sodium Chloride IV 12/08/23 16:18 100 mls/hr ONCE ONE Administration Insulin Human Regular 5 unit 12/08/23 15:15 12/08/23 15:38 Insulin Human Regular 100 Units/Ml 10ml Vial IVP 12/08/23 15:16 Not Given ONCE ONE ORDERS Category Date Time Status Acetone, Serum (Rapid) Stat Lab 12/08/23 14:00 Completed BMP [Basic Metabolic Panel] Stat Lab 12/08/23 17:08 Completed CBC w/Auto Diff [Complete Blood Count Auto Diff] Stat Lab 12/08/23 14:00 Completed CMP [Comprehensive Metabolic Panel] Stat Lab 12/08/23 14:00 Completed Lactic Acid Stat Lab 12/08/23 14:33 Completed Lipase Stat Lab 12/08/23 14:00 Completed Trop I [Troponin I] Stat Lab 12/08/23 14:00 Completed Troponin I Q3H Lab 12/08/23 17:08 Completed Troponin I Q3H Lab 12/08/23 21:15 Ordered UA [Urinalysis and Microscopic] Stat Lab 12/08/23 15:07 Completed Blood Culture Stat Micro 12/08/23 15:13 Received Urine Culture Stat Micro 12/08/23 15:07 Received VBG [Venous Blood Gas] Stat RT 12/08/23 14:12 Completed ECG initial Besson Stat Y 12/08/23 14:49 Completed Medical Decision Narrative: In summary patient is a 73-year-old female with past medical history described above presents emergency department for evaluation of hyperglycemia. Patient is hemodynamically stable and nontoxic-appearing upon arrival, afebrile. Differential includes DKA, hyperglycemia, acute functional Salazar, among others. Workup will be conducted with hematologic labs, VBG, EKG. Initial interventions include 500 cc crystalloid bolus. Initial workup reviewed by me, hematologic labs are remarkable for hyperglycemia, stable CKD. Patient has no anion gap so no concern for DKA at this time. Urinalysis is pending in the setting of dysuria. Patient has scooping ST depression and no chest pain so single troponin will be ordered although doubt ACS at this time. Patient will be given subsequent dose of insulin. Regardless patient will require placement as she is unable to care for herself. The case was discussed with care management and they will evaluate the patient. Medical clearance and care management eval is pending at time of transfer of care to the oncoming physician, Dr. Abdalla. Rm: I assume primary responsibility for this patient after signout from previous physician. Patient is chronic vasculopath with multiple cardiac comorbidities including insulin-dependent type 2 diabetes presenting with high glucose readings. On my evaluation, patient well-appearing. Appears to be in no acute distress. Hematologic workup independently interpreted with nonactionable CBC. Patient does have normal VBG and normal anion gap. Creatinine 2.0 which appears to be patient's baseline. Glucose elevated at 537 and A1c 8.6 on last check in 2021. Lactate 2.3. Initial troponin elevated. Patient was placed in observation beginning at 3 PM in order to rule out delta troponins and evolving MS. Is also necessary for case management to see patient and help with disposition. And determine need for admission versus home-going. The patient was provided monitoring, Rocephin for UTI while awaiting results. Independent interpretation of results demonstrated UTI, given Rocephin. Negative delta troponin. Family arrived and stated they are going to take patient home, patient declining inpatient admission or placement at this time, patient appears to be capable of making this decision. At this time, I feel patient is appropriate for discharge. Total observation time 3 hours. Because patient at baseline without signs or symptoms of clinical decompensation, deemed appropriate for discharge. Results were relayed to patient who voiced understanding and were agreeable to outpatient management and follow up. At the time of discharge the patient was hemodynamically stable, tolerating PO, and mobilizing appropriately. Critical Care <Pedro Luke MD - Last Filed: 12/08/23 15:15> Critical Care Time Critical Care Time: No
[2023-12-08 14:27] LABS: VBG Base Excess 0.6 mmol/L (-2.4-2.3); VBG HCO3 25.5 mmol/L (23-30); VBG Oxygen Saturation 94.9 % (50-70); VBG PH 7.39 mmol/L (7.31-7.41); VBG PO2 71.5 mmol/L (28-40); VBG Total CO2 26.8 mmol/L (23-27)
[2023-12-08 14:28] LABS: Chloride 96 mmol/L (98-107); Potassium 3.5 mmoL/L (3.5-5.1); Sodium 132 mmol/L (136-145)
[2023-12-08 14:30] LABS: Blood Urea Nitrogen 34 mg/dl (7-17); Creatinine Clearance Estimated 32 mL/min (50-200); Estimated Glomerular Filt Rate 25 ml/min (>60); GFR (African American) 30 ML/MIN (>60)
[2023-12-08 14:31] LABS: Alanine Aminotransferase 16 U/L (12-78); Albumin Level 3.2 g/dl (3.5-5.0); Albumin/Globulin Ratio 1.2 (1.1-1.8); Alkaline Phosphatase 124 U/L (38-126); Anion Gap 9.5 mEq/L (5-15); Aspartate Amino Transferase 20 U/L (14-36); Bilirubin,Total 0.5 mg/dl (0.2-1.3); Calcium 9.5 mg/dl (8.4-10.2); Carbon Dioxide 30 mmol/L (22.0-30.0); Globulin 2.6 g/dL (1.3-3.2); Lipase 78 U/L (23-300); Total Protein,Serum 5.8 g/dl (6.3-8.2)
[2023-12-08 14:33] LABS: Basophils % 0.9 % (0.1-2.0); Eosinophils # 0.2 K/mm3 (0.0-0.4); Eosinophils % 3.7 % (0.1-12.0); Glucose 537 mg/dl (74-100); Hematocrit 40.3 % (37.0-47.0); Hemoglobin 12.9 g/dL (12.2-16.2); Lymphocytes # 0.7 K/mm3 (0.7-4.5); Mean Corpuscular HGB Conc 32.1 g/dL (31.8-35.4); Mean Corpuscular Hemoglobin 28.3 pg (27.0-31.2); Mean Corpuscular Volume 88.1 fl (81-99); Mean Platelet Volume 7.9 fl (7.4-10.4); Monocytes # 0.3 K/mm3 (0.1-1.0); Monocytes % 5.4 % (1.7-9.3); Neutrophils # 3.6 K/mm3 (1.8-7.8); Platelet Count 277 K/mm3 (142-424); Red Blood Count 4.58 M/mm3 (4.20-5.40); Red Cell Distribution Width 15.4 % (11.5-17.5); White Blood Count 4.8 K/mm3 (4.8-10.8)
--- NOTE | 2023-12-08 14:49 | ECG_ITS ---
APPROVED REPORT Exam: Resting ECG HR:71 bpm ECG Measurements Heart Rate 71 AXES PA 145 P 45 QRSd 83 QRS 12 QT 419 T 184 QTc 441 Conclusion SINUS RHYTHM LEFT VENTRICULAR HYPERTROPHY AND ST-T CHANGE [VOLTAGE CRITERIA PLUS ST/T ABNORMALITY] ABNORMAL ECG UNCONFIRMED REPORT Electronically signed by : Darnell Narayan MD 12/09/2023 21:26:15
--- NOTE | 2023-12-08 15:09 | PC.NURSE ---
LAB AT FOR BLOOD CULTURES
[2023-12-08 15:12] LABS: Lactic Acid 2.3 mmol/L (0.7-2.1)
--- NOTE | 2023-12-08 15:14 | PC.NURSE ---
CARE MANAGEMENT CALLED FOR POSSIBLE PLACEMENT . [facility] FROM [facility] [phone] FOR ANY QUESTIONS
[2023-12-08 15:15] LABS: Microscopic, Urine URINE MICROSCOPIC (MICROSCOPIC)
[2023-12-08 15:19] LABS: Appearance,Urine SL CLOUDY (Clear); Bilirubin,Urine 1+ (Negative); Blood, Urine 1+ (Negative); Color,Urine YELLOW (Yellow); Glucose,Urine (UA) 3+ (Negative); Ketones,Urine Negative (Negative); Leukocyte Esterase,Urine TRACE (Negative); Nitrate,Urine Negative (Negative); PH,Urine 6.5 (5.0-8.5); Protein,Urine 2+ (Negative); Specific Gravity, Urine 1.015 (1.005-1.030); Urobilinogen,Urine 0.2 EU/dl (0.2)
[2023-12-08 15:33] LABS: Troponin I 0.07 ng/ml (0.00-0.034)
[2023-12-08 15:38] LABS: Bacteria,Urine 2+ /lpf; Squamous Epithelial Cell,Urine Occasional #/hpf (0-5); WBC,Urine 20-50 #/hpf (0-3)
--- NOTE | 2023-12-08 15:42 | PC.NURSE ---
CARE MANAGEMENT AT
[2023-12-08 15:55] LABS: Acetone, Serum (Rapid) Small (None Detect)
--- NOTE | 2023-12-08 16:15 | SW/DCPLANNER ---
Addendum entered by Giselle Che 12/09/23 14:05: Patient stated that she is doing well and does not have any needs at home at this time. Addendum entered by Giselle Che 12/09/23 08:12: Attempted to contact patient regarding situation: no answer at this time. Addendum entered by Giselle Che 12/09/23 08:11: I have updated Miley mary/ [facility] that patient returned home from ED yesterday and will need to resume home health services. Original Note: I was contacted by ED staff to speak w/ this patient regarding plans once medically stable for discharge. Patient expressed an interest in placement for rehab once ready to leave [facility]. I did have a lengthy discussion w/ this patient that at this time her Medicare would not cover placement due to not having a qualifying hospital admission. I also explained to patient that we could look into placement under Medicaid and payment (monthly income minus $40). Patient stated that she is not interested in Medicaid placement due to cost. Patient stated that she feels medically stable to return back home w/ home health services ([facility]) and Waiver services which include meal deliveries at home. Patient voiced that she feels safe to return home. I contacted patient's sister (Alicia) regarding situation: Alicia is agreeable to transport patient home if that is what patient chooses to do. I will follow up w/ [facility] and patient in the AM. S Sobse in ER was present in patient's room during our conversation.
--- NOTE | 2023-12-08 16:16 | PC.NURSE ---
PT DOES NOT WANT TO GO FOR PLACEMENT. HER SISTER IS COMING TO GET HER SHE ALREADY HAS HOME HEALTH IN PLACE , MEALS ON WHEELS DELIVER DAILY . CARE MANAGEMENT IS GOING TO F/U WITH HER IN THE AM
[2023-12-08] MEDS: CEFTRIAXONE SODIUM 1 GM in 0.9 % SODIUM CHLORIDE 50 ML IV (16:27)
[2023-12-08 17:27] LABS: Anion Gap 11.7 mEq/L (5-15); Blood Urea Nitrogen 33 mg/dl (7-17); Carbon Dioxide 28 mmol/L (22.0-30.0); Chloride 97 mmol/L (98-107); Creatinine Clearance Estimated 35 mL/min (50-200); Estimated Glomerular Filt Rate 28 ml/min (>60); GFR (African American) 34 ML/MIN (>60); Glucose 367 mg/dl (74-100); Potassium 3.7 mmoL/L (3.5-5.1); Sodium 133 mmol/L (136-145)
[2023-12-08 17:50] LABS: Troponin I 0.07 ng/ml (0.00-0.034)
[2023-12-08 18:51] LABS: Reflex Lactic Add Lactic Reflex
--- NOTE | 2023-12-10 08:13 | PC.NURSE ---
Per pt needs not further orders for urine culture who was DC with cefdinir
== END 2023-12-08 18:12 | disposition home or self-care (01) ==
PROVIDERS: Emergency Medicine; Emergency Provider Emergency Medicine; PCP Nurse Practitioner Family
DX: E11.65 Type 2 diabetes mellitus with hyperglycemia (principal); N39.0 Urinary tract infection, site not specified; E11.22 Type 2 diabetes mellitus with diabetic chronic kidney disease; I12.9 Hypertensive chronic kidney disease with stage 1 through stage 4 chronic kidney disease, or unspecified chronic kidney disease; N18.9 Chronic kidney disease, unspecified; E78.5 Hyperlipidemia, unspecified; I25.119 Atherosclerotic heart disease of native coronary artery with unspecified angina pectoris; I70.8 Atherosclerosis of other arteries; I65.29 Occlusion and stenosis of unspecified carotid artery
CPT/HCPCS: 36415; 80048; 80053; 81001; 82009; 82803; 83605; 83690; 84484; 85025; 87040; 87086; 93005; 96365; 99285; J0696

== ENCOUNTER 2023-12-10 21:50 | Emergency (ER) | payer MEDICARE, MEDICAID, SELFPAY ==
[2023-12-10] VITALS (22 sets, daily range): BP systolic 159–266; BP diastolic 65–162; PULSE 75–104; RESP 15–22; O2SAT 95–100; BMI 32.1; BMI 33.2
--- NOTE | 2023-12-10 21:48 | CT_ITS ---
PROCEDURE INFORMATION: Exam: CT Head Without Contrast Exam date and time: 12/10/2023 9:51 PM Age: 73 years old Clinical indication: Stroke-like symptoms; Altered mental status/memory loss; Additional info: Stroke symptoms TECHNIQUE: Imaging protocol: Computed tomography of the head without contrast. Radiation optimization: All CT scans at this facility use at least one of these dose optimization techniques: automated exposure control; mA and/or kV adjustment per patient size (includes targeted exams where dose is matched to clinical indication); or iterative reconstruction. Other technique: STROKE PROTOCOL was implemented. COMPARISON: CT HEAD/BRAIN WO CON 02/18/2022 2:03 PM FINDINGS: Brain: Periventricular and subcortical small vessel ischemic changes appear chronic. Mild atrophy associated. No acute hemorrhage, mass effect, midline shift, or extra-axial fluid collection. Cerebral ventricles: No ventriculomegaly. Paranasal sinuses: Visualized sinuses are unremarkable. No fluid levels. Mastoid air cells: Visualized mastoid air cells are well aerated. Bones/joints: Unremarkable. No acute fracture. Soft tissues: Unremarkable. IMPRESSION: No acute intracranial abnormality. ASSESSMENT: ASPECTS (Astrid Stroke Program Early CT Score) is 10.
--- NOTE | 2023-12-10 21:58 | XR_ITS ---
PROCEDURE INFORMATION: Exam: XR Chest Exam date and time: 12/10/2023 10:43 PM Age: 73 years old Clinical indication: Device placement; Ett placement (vent status); Patient HX: Ett tube placement. AMS TECHNIQUE: Imaging protocol: Radiologic exam of the chest. Views: 1 view. COMPARISON: CR XR CHEST AP 02/18/2022 2:11 PM FINDINGS: Tubes, catheters and devices: ET tube is below the thoracic inlet and above the sandra. NG tube is in stomach. Lungs: Unremarkable. No consolidation. Pleural spaces: Unremarkable. No pleural effusion. No pneumothorax. Heart/Mediastinum: Cardiomegaly with congestive heart failure new from comparison. Bones/joints: Unremarkable. IMPRESSION: 1. ET tube is below the thoracic inlet and above the sandra. 2. NG tube is in stomach. 3. Cardiomegaly with congestive heart failure new from comparison.
[2023-12-10] MEDS: 0.9 % SODIUM CHLORIDE 1000ML 1,000 ML 999 ML IV (22:00)
--- NOTE | 2023-12-10 22:00 | CT_ITS ---
PROCEDURE INFORMATION: Exam: CTA Head With Contrast, Arteriography Exam date and time: 12/10/2023 10:11 PM Age: 73 years old Clinical indication: Stroke-like symptoms; Altered mental status/memory loss; Additional info: Stroke alert TECHNIQUE: Imaging protocol: Computed tomographic angiography of the head with contrast. Exam focused on the arteries. 3D rendering (Not supervised by radiologist): MIP and/or 3D reconstructed images were created by the technologist. Radiation optimization: All CT scans at this facility use at least one of these dose optimization techniques: automated exposure control; mA and/or kV adjustment per patient size (includes targeted exams where dose is matched to clinical indication); or iterative reconstruction. Contrast material: ISOVUE 370; Contrast volume: 100 ml; Contrast route: INTRAVENOUS (IV); COMPARISON: CT HEAD/BRAIN WO CON 12/10/2023 9:51 PM FINDINGS: ANTERIOR CIRCULATION: Right internal carotid artery: Intracranial segment is patent with no significant stenosis. No aneurysm. Right middle cerebral artery: No occlusion or significant stenosis. No aneurysm. Right anterior cerebral artery: No occlusion or significant stenosis. No aneurysm. Left internal carotid artery: Intracranial segment is patent with no significant stenosis. No aneurysm. Left middle cerebral artery: No occlusion or significant stenosis. No aneurysm. Left anterior cerebral artery: No occlusion or significant stenosis. No aneurysm. POSTERIOR CIRCULATION: Right vertebral artery: No occlusion or significant stenosis. No aneurysm. Left vertebral artery: No occlusion or significant stenosis. No aneurysm. Basilar artery: No occlusion or significant stenosis. No aneurysm. Right posterior cerebral artery: No occlusion or significant stenosis. No aneurysm. Left posterior cerebral artery: No occlusion or significant stenosis. No aneurysm. Brain: No definite mass, mass effect, or midline shift. Cerebral ventricles: No ventriculomegaly. Bones/joints: Unremarkable. No acute fracture. Soft tissues: Unremarkable. IMPRESSION: 1. No acute intracranial large vessel occlusion.
--- NOTE | 2023-12-10 22:00 | CT_ITS ---
PROCEDURE INFORMATION: Exam: CTA Neck With Contrast Exam date and time: 12/10/2023 10:11 PM Age: 73 years old Clinical indication: Stroke-like symptoms; Altered mental status/memory loss; Additional info: Stroke alert TECHNIQUE: Imaging protocol: Computed tomographic angiography of the neck with contrast. Exam focused on the cervical segments of the vasculature. 3D rendering (Not supervised by radiologist): MIP and/or 3D reconstructed images were created by the technologist. Radiation optimization: All CT scans at this facility use at least one of these dose optimization techniques: automated exposure control; mA and/or kV adjustment per patient size (includes targeted exams where dose is matched to clinical indication); or iterative reconstruction. Contrast material: ISOVUE 370; Contrast volume: 100 ml; Contrast route: INTRAVENOUS (IV); COMPARISON: CT CERVICAL SPINE WO CON 02/18/2022 2:05 PM FINDINGS: Right common carotid artery: No stenosis. No dissection or occlusion. Right internal carotid artery: Mild right ICA stenosis at the bulb, less than 50% by NASCET criteria. No dissection or occlusion. Right external carotid artery: No occlusion or stenosis of the origin. Left common carotid artery: No stenosis. No dissection or occlusion. Left internal carotid artery: No stenosis of the extracranial segment. No dissection or occlusion. Left external carotid artery: No occlusion or stenosis of the origin. Right vertebral artery: No stenosis. No dissection or occlusion. Left vertebral artery: No stenosis. No dissection or occlusion. Soft tissues: Normal. No significant soft tissue swelling. Bones/joints: No acute fracture. IMPRESSION: Mild right ICA stenosis at the bulb, less than 50% by NASCET criteria. REFERENCES: NASCET CRITERIA. The degree of stenosis in the cervical segment of the internal carotid artery is based on NASCET criteria. Normal is no stenosis. Mild is less than 50% stenosis. Moderate is 50-69% stenosis. Severe is 70% to 99% stenosis. Total occlusion is no detectable patent lumen.
[2023-12-10 22:16] LABS: Chloride 94 mmol/L (98-107); Potassium 4.2 mmoL/L (3.5-5.1); Sodium 129 mmol/L (136-145)
[2023-12-10 22:18] LABS: Alanine Aminotransferase 17 U/L (12-78); Aspartate Amino Transferase 20 U/L (14-36); Blood Urea Nitrogen 34 mg/dl (7-17); Estimated Glomerular Filt Rate 20 ml/min (>60); GFR (African American) 24 ML/MIN (>60)
--- NOTE | 2023-12-10 22:18 | PC.NURSE ---
[employer] contacted re flying awaiting return call
[2023-12-10 22:19] LABS: Acetone, Serum (Rapid) Small (None Detect); Albumin Level 3.3 g/dl (3.5-5.0); Albumin/Globulin Ratio 1.3 (1.1-1.8); Alkaline Phosphatase 170 U/L (38-126); Anion Gap 14.2 mEq/L (5-15); Bilirubin,Total 0.5 mg/dl (0.2-1.3); Calcium 9.2 mg/dl (8.4-10.2); Carbon Dioxide 25 mmol/L (22.0-30.0); Globulin 2.6 g/dL (1.3-3.2); Total Protein,Serum 5.9 g/dl (6.3-8.2)
[2023-12-10] MEDS: ETOMIDATE 40MG/20ML VIAL 30 MG IV (22:20)
[2023-12-10] MEDS: SUCCINYLCHOLINE 20MG/ML 10 ML MDV 130 MG IV (22:21)
[2023-12-10 22:22] LABS: Lipase 97 U/L (23-300)
[2023-12-10 22:23] LABS: Basophils % 0.7 % (0.1-2.0); Eosinophils # 0.2 K/mm3 (0.0-0.4); Eosinophils % 3.4 % (0.1-12.0); Hematocrit 40.2 % (37.0-47.0); Hemoglobin 12.5 g/dL (12.2-16.2); Lymphocytes # 0.9 K/mm3 (0.7-4.5); Lymphocytes % 17.1 % (10-50); Mean Corpuscular HGB Conc 31.2 g/dL (31.8-35.4); Mean Corpuscular Hemoglobin 27.8 pg (27.0-31.2); Mean Corpuscular Volume 89.2 fl (81-99); Mean Platelet Volume 7.1 fl (7.4-10.4); Monocytes # 0.4 K/mm3 (0.1-1.0); Monocytes % 6.6 % (1.7-9.3); Neutrophils # 3.9 K/mm3 (1.8-7.8); Neutrophils % 72.1 % (37.0-80.0); Platelet Count 264 K/mm3 (142-424); Red Blood Count 4.51 M/mm3 (4.20-5.40); Red Cell Distribution Width 14.9 % (11.5-17.5); White Blood Count 5.4 K/mm3 (4.8-10.8)
--- NOTE | 2023-12-10 22:23 | PC.NURSE ---
return call from [employer] and they are flying and on stand by, they can be here in 11 minutes. notified
--- NOTE | 2023-12-10 22:30 | PC.NURSE ---
called both contact phone numbers listed in patient chart for further health info, alex/ phone number on file not in working order, [employer] left voicemail with patient other contact Neha powers to call ER back
[2023-12-10 22:31] LABS: Troponin I 0.05 ng/ml (0.00-0.034)
[2023-12-10 22:33] LABS: Glucose 707 mg/dl (74-100)
[2023-12-10] MEDS: IOPAMIDOL-370 (76%);100ML BOTTLE 100 ML IV (22:35)
[2023-12-10] MEDS: 0.9 % SODIUM CHLORIDE 50 ML VIAL IV (22:35)
[2023-12-10] MEDS: SODIUM CHLORIDE 0.9% 10ML SYR (RAD ONLY) 10 ML IV (22:35)
[2023-12-10] MEDS: propofoL 100 ML 15.3000000000000007 MG IV (22:40)
--- NOTE | 2023-12-10 22:40 | PC.NURSE ---
call made to [facility] stroke team
--- NOTE | 2023-12-10 22:43 | PC.NURSE ---
Dr. Boyer, the radiologist, called and stated that the pts CT's were negative
--- NOTE | 2023-12-10 22:57 | PC.NURSE ---
ED doctor on phone with at this time
--- NOTE | 2023-12-10 22:59 | PC.NURSE ---
Unable to change time of original triage.
--- NOTE | 2023-12-10 23:00 | PC.NURSE ---
on phone with [facility] stroke navigator
--- NOTE | 2023-12-10 23:06 | PC.NURSE ---
Pt brought in by [facility] with stroke like symptoms LKN 20:50, Glucose too high to read on glucometer. Pt taken straight to CT scan, while in scan pt started having seizure like activity. Pt unable to speak or answer questions, drooling from mouth. Suctioned, still unable to talk. Dr Abdalla called to CT. Pt intubated on CT scanner.
--- NOTE | 2023-12-10 23:08 | ECG_ITS ---
APPROVED REPORT Exam: Resting ECG HR:88 bpm ECG Measurements Heart Rate 88 AXES AZ 152 P 59 QRSd 84 QRS 61 QT 393 T 211 QTc 438 Conclusion SINUS RHYTHM WITH OCCASIONAL SUPRAVENTRICULAR PREMATURE COMPLEXES POSSIBLE LEFT ATRIAL ENLARGEMENT [-0.1mV P-WAVE IN V1/V2] ST DEVIATION AND MODERATE T-WAVE ABNORMALITY, CONSIDER LATERAL ISCHEMIA [-0.1+ mV T-WAVE IN I/aVL/V5/V6] ST DEVIATION AND MODERATE T-WAVE ABNORMALITY, CONSIDER INFERIOR ISCHEMIA [-0.1+ mV T-WAVE IN II/aVF] ABNORMAL ECG UNCONFIRMED REPORT Electronically signed by : Darnell Narayan MD 12/11/2023 08:52:02
--- NOTE | 2023-12-10 23:10 | PC.NURSE ---
[facility] accepted, [employer] contacted, approx. 11 minutes until landing, maint. notified to stop traffic
--- NOTE | 2023-12-10 23:18 | ED_ITS ---
Discharge Plan Disposition Patient Disposition: Xfer Short-Term Hosp Chief Complaint: Neuro Symptoms/Deficit Prescriptions Prescriptions: No Action cholecalciferol (vitamin D3) 2,000 unit tablet 2,000 unit PO DAILY 30 Days Patient Comments: TAKE 1 TABLET BY MOUTH EVERY DAY bumetanide 2 mg tablet 2 mg PO DAILY pantoprazole 20 mg tablet,delayed release (DR/EC) 20 mg PO DAILY levothyroxine 88 mcg tablet 88 mcg PO DAILY doxazosin 2 mg tablet PO Patient Comments: TAKE ONE TABLET BY MOUTH EVERY NIGHT insulin glargine U-300 conc 300 unit/mL (1.5 mL) insulin pen 74 unit SQ HS 30 Days Qty: 8.1 carvedilol 25 mg tablet 25 mg PO BID rosuvastatin 40 mg tablet 40 mg PO DAILY clopidogrel 75 mg tablet 75 mg PO DAILY Qty: 30 5RF isosorbide mononitrate 120 mg tablet extended release 24 hr 120 mg PO DAILY Qty: 30 4RF Rx Instructions: HOLD IF SBP <100, DBP <60 OR HR <60 aspirin 81 mg tablet,delayed release (DR/EC) See Rx Instructions .ROUTE .COMPLEX Qty: 90 3RF Dose Instruction: TAKE ONE TABLET BY MOUTH EVERY DAY AT BEDTIME FOR heart health Rx Instructions: TAKE ONE TABLET BY MOUTH EVERY DAY AT BEDTIME FOR heart health hydralazine 100 MG tablet 100 mg PO TID Rx Instructions: HOLD IF SBP <100, DBP <60 OR HR <60 oxycodone 5 mg tablet 5 mg PO TIDP PRN (Reason: Severe Pain (Scale Score 7-10)) cefdinir 300 mg capsule 300 mg PO BID 10 Days Qty: 20 0RF insulin lispro 100 UNIT/ML cartridge 0 unit SQ ACHS Rx Instructions: 151 - 200=2Units ; 201 - 250= 5units ; 251 - 300= 8units ; 301 - 350= 10units ; 351 - 400= 12units ; 401 - 450= 15units ; <60 or >450 call MD Referrals Follow up/Referrals: Provider,Referral, MD [Primary Care Provider] - See instructions Clinical Impressions Clinical Impression: Stroke syndrome, Acute hyperglycemia, Acute hypoxemic respiratory failure Discharge ED Provider: Milton Abdalla General Adult [facility] General Chief complaint: Neuro Symptoms/Deficit Stated complaint: STROKE Time Seen by Provider: 12/10/23 21:57 Mode of Arrival: EMS Source of Information: Relative and EMS Limitations: Physical Limitations Description of Symptoms (Recalled from ER Triage Doc. by RN): Pt family callled EMS for stroke like symptoms. Pt experienced slumping to the right side with right arm weakness. Family states pt stated she felt dizzy at the time, checked her BG and read high . Pt recent dx with a UTI, diabetic, CKD with left arm fistula no hx of dialysis treatment. History of Present Illness HPI narrative: 73-year history of CKD with fistula in left upper extremity not currently receiving dialysis (per family) CAD PAD, hypertension, upper diabetes and comorbidities presenting with altered mental status. Last known well was 8:50 PM on 12/10. Patient's family was sitting with patient when she slumped over and was unable to use her left side. Glucose was measured at home, too high to read, EMS was called. Patient was brought to [facility] ED. Related Data Home Medications Medication Instructions Recorded Confirmed cholecalciferol (vitamin D3) 50 2,000 unit PO DAILY supplement 30 02/20/19 10/13/23 mcg (2,000 unit) tablet days insulin glargine U-300 conc 300 74 unit SQ HS Diabetes 30 days 02/20/19 10/13/23 unit/mL (1.5 mL) subcutaneous pen #8.1 mL hydralazine 100 mg tablet 100 mg PO TID High blood pressure 06/01/19 10/13/23 insulin lispro 100 unit/mL 0 unit SQ ACHS Diabetes 06/17/19 10/13/23 subcutaneous cartridge bumetanide 2 mg tablet 2 mg PO DAILY 07/29/22 10/13/23 levothyroxine 88 mcg tablet 88 mcg PO DAILY 07/29/22 10/13/23 pantoprazole 20 mg tablet,delayed 20 mg PO DAILY 07/29/22 10/13/23 release carvedilol 25 mg tablet 25 mg PO BID 10/06/22 10/13/23 rosuvastatin 40 mg tablet 40 mg PO DAILY 10/06/22 10/13/23 oxycodone 5 mg tablet 5 mg PO TIDP PRN Severe Pain 09/27/23 10/13/23 (Scale Score 7-10) doxazosin 2 mg tablet mg PO 10/13/23 10/13/23 Previous Rx's Medication Instructions Recorded clopidogrel 75 mg tablet 75 mg PO DAILY PLATELET INHIB[employer]OR 05/08/20 #30 tabs isosorbide mononitrate 120 mg 120 mg PO DAILY Hypertension #30 05/08/20 tablet,extended release 24 hr tabs aspirin 81 mg tablet,delayed See Rx Instructions .Route 10/25/23 release .COMPLEX #90 tabs cefdinir 300 mg capsule 300 mg PO BID 10 days #20 caps 12/08/23 Allergies Allergy/AdvReac Type Severity Reaction Status Date / Time No Known Allergies Allergy Verified 10/13/23 14:47 [facility] Disclaimer: The information contained in this section may have been updated after the patient was seen, as this information can be updated by other users. Medical History Angina, class III Bilateral iliac artery stenosis CAD (coronary artery disease) Carotid artery stenosis Chest pain CKD (chronic kidney disease) Claudication of both lower extremities Diabetes Family history of early CAD HLD (hyperlipidemia) HTN (hypertension) SOB (shortness of breath) Stenosis of aorta Social History Smoking Status: Unknown if ever smoked alcohol intake: never counseling provided: none substance use type: denies use current occupational status: retired Travel in the last 8 weeks: None household members: none housing: house ROS Obtained: Yes unobtainable due to mental status Physical Exam General General appearance: other (Ill-appearing, alert) Eye Eye exam: Present PERRL and other (Looking toward the right, left-sided neglect) Respiratory Respiratory exam: Present normal lung sounds bilaterally; Absent respiratory distress or wheezes Cardiovascular Cardiovascular exam: Present regular rate and normal rhythm Abdominal Exam Abdominal exam: Present soft; Absent distention, tenderness, guarding, rebound or rigidity Neurological Exam Neurological exam: Present alert and other (NIHSS 23) Medical Decision Making Medical Records Medical records reviewed: Yes I reviewed the patient's medical records. Akash Inquiry Pt receiving controlled substance: No Akash was queried for this patient: No Vital Signs: 12/10/23 22:59 Pulse Rate [Left] 88 Respiratory Rate 16 Blood Pressure [Right Arm] 236/90 H Blood Pressure Mean [Right Arm] 138 Blood Pressure Source [Right Arm] Automatic Cuff Blood Pressure Position [Right Arm] Supine 02 Sat by Pulse Oximetry 96 Oxygen Delivery Method Nasal Cannula Oxygen Flow Rate (LPM) 2 Lab Data Lab Results 12/10/23 22:01: WBC 5.4, RBC 4.51, Hgb 12.5, Hct 40.2, MCV 89.2, MCH 27.8, MCHC 31.2 L, RDW 14.9, Plt Count 264, MPV 7.1 L, Neut % (Auto) 72.1, Lymph % (Auto) 17.1, Island % (Auto) 6.6, Eos % (Auto) 3.4, Baso % (Auto) 0.7, Neut # (Auto) 3.9, Lymph # (Auto) 0.9, Island # (Auto) 0.4, Eos # (Auto) 0.2, Baso # (Auto) 0.0, Sodium 129 L, Potassium 4.2, Chloride 94 L, Carbon Dioxide 25, Anion Gap 14.2, BUN 34 H, Creatinine 2.40 H D, Estimated GFR 20 L, Est GFR ( Amer) 24 L D , Glucose 707 H*, Calcium 9.2, Total Bilirubin 0.5, AST 20, ALT 17, Alkaline Phosphatase 170 H, Troponin I 0.05 H, Total Protein 5.9 L, Albumin 3.3 L, Globulin 2.6, Albumin/Globulin Ratio 1.3, Lipase 97, Acetone Level Small 12/10/23 22:01 12/10/23 22:01 Orders (Tests/Meds): ED MEDICATIONS Generic Name Dose Route Start Last Admin Trade Name Freq PRN Reason Stop Dose Admin Alteplase, Recombinant 0 mg 12/10/23 22:40 Alteplase Recombinant 100mg Vial IV 12/10/23 22:41 ONCE ONE Nicardipine HCl 25 mg/ Sodium 250 mls @ 50 mls/hr 12/10/23 22:08 Chloride IV 01/09/24 22:07 .Q5H [facility] Protocol Miscellaneous 1 each 12/10/23 22:45 Vancomycin Consult Request NOTAPPLIC 01/09/24 22:44 CONSULT PHARMACY [facility] Discontinued Medications Generic Name Dose Route Start Last Admin Trade Name Freq PRN Reason Stop Dose Admin Sodium Chloride 1,000 mls @ 999 mls/hr 12/10/23 21:57 Sod Chlor 0.9% 1000ml Bag IV 12/10/23 22:57 .Q1H1M ONE Ampicillin Sodium/Sulbactam 100 mls @ 200 mls/hr 12/10/23 22:38 Sodium 3 gm/ Sodium Chloride IV 12/10/23 22:39 ONCE ONE Insulin Human Regular 5 unit 12/10/23 22:33 Insulin Human Regular 100 Units/Ml 10ml Vial IV 12/10/23 22:34 ONCE ONE Iopamidol 100 ml 12/10/23 22:34 12/10/23 22:35 Iopamidol-370 (76%);100ml Bottle IV 12/10/23 22:35 100 ml ONCE ONE Administration Sodium Chloride 50 ml 12/10/23 22:34 12/10/23 22:35 0.9 % Sodium Chloride 50 Ml Vial IV 12/10/23 22:35 50 ml ONCE ONE Administration Sodium Chloride 10 ml 12/10/23 22:34 12/10/23 22:35 Sodium Chloride 0.9% 10ml Syr (Rad Only) IV 12/10/23 22:35 10 ml ONCE ONE Administration ORDERS Category Date Time Status CT angio head Stat Cat Scan 12/10/23 22:[address] angio neck Stat Cat Scan 12/10/23 22:[address] head/brain wo con Stat Cat Scan 12/10/23 21:48 Completed XR chest portable Stat Exams 12/10/23 21:58 Completed Acetone, Serum (Rapid) Stat Lab 12/10/23 22:01 Completed CBC w/Auto Diff [Complete Blood Count Auto Diff] Stat Lab 12/10/23 22:01 Completed CMP [Comprehensive Metabolic Panel] Stat Lab 12/10/23 22:01 Completed Lactic Acid Stat Lab 12/10/23 21:58 Ordered Lipase Stat Lab 12/10/23 22:01 Completed Troponin I Q3H Lab 12/11/23 01:00 Ordered Troponin I Q3H Lab 12/11/23 04:00 Ordered Troponin I Stat Lab 12/10/23 22:01 Completed Blood Culture Stat Micro 12/10/23 22:55 Received Sputum Culture & Gram Stain Stat Micro 12/10/23 22:50 Received ABG [Arterial Blood Gas] Stat RT 12/10/23 21:58 Ordered Medical Decision Narrative: 73-year history of CKD with fistula in left upper extremity not currently receiving dialysis (per family) CAD PAD, hypertension, upper diabetes and co morbidities presenting with altered mental status. Last known well was 8:50 PM on 12/10. Patient's family was sitting with patient when she slumped over and was unable to use her left side. Glucose was measured at home, too high to read, EMS was called. Patient was brought to [facility] ED. H&P noted that patient has incompletely controlled comorbidities complicating care. History was obtained via conversation with patient's family, EMS, chart review. On arrival, patient extremely hypertensive, not using left side, rightward gaze and left-sided neglect. NIHSS 23. Full physical exam performed and significant for left-sided deficits including left upper extremity weakness with minimal effort against gravity, left lower extremity no effort against gravity. Patient with left-sided neglect. Aphasic, dysarthric. Extremely hypertensive systolic 260 over diastolic 110. Differential includes metabolic, endocrinologic, hypoxemia, ingestion, intoxication, withdrawal, sepsis, other infectious, encephalitis, seizure, intracranial bleed, trauma, neoplastic among others. Initial glucose too high to read. Because of deficits, patient was sent to CT scanner. In CT scanner, patient decompensated. Began vomiting. Patient was intubated for airway protection. Placed on propofol drip. CT head without hemorrhage, CTA head and neck without obvious large vessel occlusion. This was confirmed by outside neurosurgery. Workup independently interpreted and significant for no leukocytosis. Hyponatremic 129, GARCÍA with creatinine 2.4. Patient does not have anion gap. Initial troponin 0.05. Lipase 97. CT head without hemorrhage, CTA head and neck without acute large vessel occlusion. See radiology read for full review of final results. Independent interpretation of EKG shows sinus rhythm 88 beats a minute without ST elevations, patient does have T wave inversions in lateral and inferior leads without reciprocal change. MN, QRS, QT intervals within normal limits. Cardene drip started in order to get patient's blood pressure down, patient was given tPA. [facility] was contacted, they did not have any neuro ICU beds. [facility] was called back to the need to have neuro ICU beds. Recommended transfer. I attempted arterial lines right upper extremity without success given poor vasculature. Will attempt left femoral A-line for appropriate titration of medications. Because patient high risk for clinical decompensation if discharged, deemed appropriate for transfer and inpatient admission. Results were relayed to patient family who voiced understanding and was agreeable to transfer, inpatient admission, and management. Patient was graciously accepted and transferred to [facility] for further definitive management, under Dr. Guzman. Critical Care Critical Care Time Critical Care Time: Yes (neuro) Attestation: On 12/10/23, the high probability of a clinically significant, sudden or life threatening deterioration of the following system(s) required my full and direct attention, intervention and personal management. The time I documented below is in addition to time spent performing reported procedures but includes the following listed in this critical care notation. Total Time Total Critical Care Time: 120
[2023-12-10 23:20] LABS: ABG Base Excess -1.7 mmol/L (-2.4-2.3); ABG HCO3 22.6 mmhg (22.0-26.0); ABG Oxygen Saturation 94 % (90-100); ABG PCO2 34.8 mmhg (35.0-45.0); ABG PH 7.43 mmol/L (7.35-7.45); ABG PO2 65.8 mmhg (80-100); ABG TCO2 23.7 mmhg (23-27)
[2023-12-10 23:21] LABS: Allen's Test Non Applicable; Oxygen 50% %; PEEP 5; Source Left Femoral; Tidal Volume 420; Vent Rate 20
--- NOTE | 2023-12-10 23:38 | PC.NURSE ---
Report called to [facility] to Viky Savage RN 2B ICU
--- NOTE | 2023-12-10 23:45 | PC.NURSE ---
helicopter has landed
[2023-12-11] MEDS: propofoL 100 ML 25.5 MG IV (00:08)
[2023-12-11] MEDS: ALTEPLASE RECOMBINANT 100MG VIAL 77 MG IV (00:20)
--- NOTE | 2023-12-11 00:30 | PC.NURSE ---
Air [facility] transporting pt to [facility] at this time
[2023-12-11] MEDS: NICARDIPINE HCL 25 MG in 0.9 % SODIUM CHLORIDE 240 ML 50 MG IV (00:36)
--- NOTE | 2023-12-11 00:54 | PC.NURSE ---
Documenting medication titration as note in case MAR is incorrect on dosing and times. Cardene started at 23:16 50mg, 23:35 increased to 75mg, 00:05 increased to 100mg. TPA bolus given at 00:20 7.7ml, air evac to give the remaining 69.3 mg over next hour. Propofol started at 22;40 at 30 mcg/kg/min increased to 50 mcg/kg/min at 23:22. Sedation medications Etomidate 30mg 22:20, Succ 130mg 22:21.
[2023-12-11 01:15] VITALS: BP 188/90; PULSE 83; RESP 20; TEMP 37.2; O2SAT 97
--- NOTE | 2023-12-11 05:26 | PC.NURSE ---
Dr. Lopez states after talking to the pt that the pt is still too intoxicated to have a psych eval.
--- NOTE | 2023-12-13 10:20 | PC.NURSE ---
urine culture results postive for E.coli. [address] Called and spoke with Shaun Mariscal, pts nurse and reported culture results.
== END 2023-12-11 00:30 | disposition short-term general hospital (02) ==
PROVIDERS: Emergency Provider Emergency Medicine
DX: G46.4 Cerebellar stroke syndrome (principal); J96.01 Acute respiratory failure with hypoxia; E11.65 Type 2 diabetes mellitus with hyperglycemia; E11.22 Type 2 diabetes mellitus with diabetic chronic kidney disease; I12.9 Hypertensive chronic kidney disease with stage 1 through stage 4 chronic kidney disease, or unspecified chronic kidney disease; N18.9 Chronic kidney disease, unspecified; E11.51 Type 2 diabetes mellitus with diabetic peripheral angiopathy without gangrene; I25.118 Atherosclerotic heart disease of native coronary artery with other forms of angina pectoris; I70.8 Atherosclerosis of other arteries
CPT/HCPCS: 51702; 70450; 70496; 70498; 71045; 80053; 82009; 82803; 83690; 84484; 85025; 87040; 87070; 87205; 93005; 94002; 96361; 96374; 96375; 99291; 99292; J0330; J2704; J2997; Q9967